=== PATIENT | male | born 1955 | race African-American/Black ===

== ENCOUNTER 2018-02-26 17:04 | Inpatient (IN) | payer OTHER ==
[2018-02-26 17:41] LABS: Absolute Monocytes 0.6 K/uL (0.1-1.3); Absolute Neutrophil 4.1 K/uL (1.8-8.0); Basophils % 1.2 % (0-1.3); Eosinophils % 9.3 % (0-4.4); Hematocrit 43.3 % (39.6-49.0); Lymphocytes % 41.3 % (15.3-44.8); MCH 33.4 pg (27.0-35.0); MCV 98.1 fL (80-100); Monocytes % 5.8 % (3.3-12.3); RBC Red Blood Cell Count 4.41 M/uL (4.33-5.43)
[2018-02-26] MEDS ORDERED: NA CHLORIDE 0.9% 1,000 ML ONE (17:41)
[2018-02-26] MEDS ORDERED: ONDANSETRON 4 MG/2 ML VIAL ONE (17:41)
[2018-02-26] MEDS ORDERED: FENTANYL CITR 100 MCG/2 ML ONE ×2 (17:41→18:54)
[2018-02-26 17:52] LABS: Bicarbonate 20 mEq/L (21-31); Glucose Level 68 mg/dL (65-120); Potassium 3.5 mEq/L (3.6-5.0); Sodium Level 136 mEq/L (135-145)
[2018-02-26 17:58] LABS: ALT/SGPT 30 IU/L (10-60); AST/SGOT 36 IU/L (10-42); Alkaline Phosphatase 49 IU/L (42-121); BUN Blood Urea Nitrogen 14 mg/dL (6-20); Bilirubin Direct 0.1 mg/dL (0-0.2); Bilirubin Total 0.8 mg/dL (0.3-1.2); Protein, Total 7.5 g/dL (6.0-8.3)
[2018-02-26 18:09] LABS: Alcohol Serum/Plasma 174 mg/dl
--- NOTE | 2018-02-26 19:10 | RAD REPORT ---
EXAM DESCRIPTION: RAD - Hip Right 2 View - 02/26/2018 5:55 pm CLINICAL HISTORY: Fall, hip pain COMPARISON: None. FINDINGS: AP and cross-table lateral views were obtained. Transverse fracture is present near the ba se of the neck. Extension into the intertrochanteric region is suspected. Lesser trochanter remains i ntact. No pathologic bone process seen. No AVN or focal femoral head abnormality. Degenerative change s are present along the acetabular rim. IMPRESSION: Right femoral base of the neck fracture with probable extension into the intertrochanter ic portion of the femur. Thin section CT imaging can be performed as warranted for further anatomic detail.
--- NOTE | 2018-02-26 19:10 | RAD REPORT ---
EXAM DESCRIPTION: RAD - Chest Single View - 02/26/2018 5:55 pm CLINICAL HISTORY: Preop chest, fracture COMPARISON: October 2005 TECHNIQUE: AP portable chest image was obtained 1748 hours . FINDINGS: No focal mass, infiltrate or failure finding. No acute lung parenchymal process. Trachea i s midline. Heart and vasculature are normal. No measurable pleural effusion and no pneumothorax. No g ross bony abnormality seen. No acute aortic findings suspected. IMPRESSION: No acute cardiopulmonary process.
--- NOTE | 2018-02-26 19:25 | ER ---
Nurse's Notes [facility] Name: Aj Cosme Jr Age: 63 yrs Sex: Male : 1955 Arrival Date: 02/26/2018 Time: 17:13 Bed 17 Private MD: Diagnosis: Intertrochanteric fracture of femur-right Presentation: 02/26 17:13 Presenting complaint: EMS states: called out for a fall, pt reports tripping at the em foot of the bed, denies dizziness or LOC or hitting head, pt admits drinking 3 beers and half a pint of liquor, reports right hip pain. Transition of care: patient was not received from another setting of care. Onset of symptoms was February 26, 2018. Initial Sepsis Screen: Does the patient meet any 2 criteria? No. Patient's initial sepsis screen is negative. Does the patient have a suspected source of infection? No. Patient's initial sepsis screen is negative. Care prior to arrival: None. 17:13 Method Of Arrival: EMS: [facility] em 17:13 Acuity: JEREMY 3 iw 17:13 Mechanism of Injury: Fall from standing position. Trauma event details: Injury occurred iw in the [facility], Injury occurred: at home. Injury occurred: February 26, 2018. Trauma Activation: Alert Physician: ED Physician; Name: Dr. Quinn; Notified At: 17:15; Arrived At: 17:15 Physician: General Surgeon; Name: N/A; Notified At: 17:15; Arrived At: N/A Physician: Radiology; Name: Renetta; Notified At: 17:15; Arrived At: 17:15 Physician: Respiratory; Name: N/A; Notified At: 17:15; Arrived At: N/A Physician: Lab; Name: N/A; Notified At: 17:15; Arrived At: N/A Historical: - Allergies: 17:33 NKA; iw - PMHx: 17:32 Hypertension; iw - PSHx: 17:32 R elbow; iw - Immunization history:: Adult Immunizations up to date. - Immunization history: Last tetanus immunization: unknown. - Social history:: Smoking status: Patient uses tobacco products, smokes one-half pack cigarettes per day. Screenin:23 Abuse screen: Denies threats or abuse. Nutritional screening: No deficits noted. em Tuberculosis screening: No symptoms or risk factors identified. Fall Risk Fall in past 12 months (25 points). Total Jones Fall Scale indicates Low Risk Score (25-44 pts). Side Rails Up X 2 Placed close to Nursing Station. Primary Survey: 17:15 A: Airway: patent. Breathing/Chest: Respiratory pattern: regular, Respiratory effort: iw spontaneous, unlabored, Breath sounds: clear, bilaterally. Chest inspection: symmetrical rise and fall of the chest. Circulation: Heart tones present. Pulses: palpable right dorsalis pedis artery, left dorsalis pedis artery, left carotid pulse and right carotid pulse. Skin color: pink, Skin temperature: warm. Disability Alert. 17:30 Reassessment Airway Airway Patent Breathing/Chest Respiratory pattern Regular iw Respiratory effort Spontaneous Unlabored Circulation Heart tones Present Disability Alert. 20:00 Reassessment Airway Airway Patent Breathing/Chest Respiratory pattern Regular bs1 Respiratory effort Spontaneous Unlabored Circulation Heart tones Present Disability Alert. Secondary Survey: 17:30 HEENT: Head No injury/deformity. Gastrointestinal: Abdomen is soft, flat. iw Musculoskeletal: Range of motion: limited in right hip Reports pain in right hip. Assessment: 17:21 General: Appears in no apparent distress. uncomfortable, Behavior is calm, cooperative, em Smells of alcohol, Reports tripping and drinking 3 beers and half a pint of liquor. Pain: Complains of pain in right hip. Neuro: Level of Consciousness is awake, alert, obeys commands, Oriented to person, place, time, situation. Cardiovascular: Capillary refill < 3 seconds Patient's skin is warm and dry. Respiratory: Airway is patent Respiratory effort is even, unlabored, Respiratory pattern is regular, symmetrical. GI: Abdomen is flat, Bowel sounds present X 4 quads. : No signs and/or symptoms were reported regarding the genitourinary system. EENT: No signs and/or symptoms were reported regarding the EENT system. Derm: Skin is intact, Skin is pink, warm \T\ dry. Musculoskeletal: Range of motion: limited in right hip. Injury Description: trip injury. 17:30 Reassessment: Patient appears in no apparent distress at this time. I agree with above iw assessment by Yahir Arvizu LVN. 18:20 Reassessment: Patient appears in no apparent distress at this time. Patient and/or em family updated on plan of care and expected duration. Pain level reassessed. Patient is alert, oriented x 3, equal unlabored respirations, skin warm/dry/pink. Patient states symptoms have not improved. 19:05 Reassessment: Report received by PAUL Sinclair, patient ETOH, hip fracture, pulses present bs1 bilateral lower ext, alert to self, neurovascular checks WNL, pending Bed assignment. 20:55 Reassessment: No changes from previously documented assessment. Patient and/or family bs1 updated on plan of care and expected duration. Pain level reassessed. Patient is alert, oriented x 3, equal unlabored respirations, skin warm/dry/pink. Water given to patient per Dr Iqbal. Vital Signs: 17:19 BP 103 / 75; Pulse 105; Resp 18; Temp 98.6(TE); Pulse Ox 96% on R/A; Weight 85.73 kg; em Height 6 ft. 2 in. (187.96 cm); Pain 8/10; 17:31 BP 115 / 74; Pulse 98; Resp 16 S; Temp 98.2; Pulse Ox 98% on R/A; Pain 8/10; iw 18:30 BP 109 / 61; Pulse 98; Resp 18; Pulse Ox 94% ; Pain 9/10; em 19:30 BP 112 / 57; Pulse 93; Resp 17; Pulse Ox 100% on R/A; bs1 20:30 BP 107 / 62; Pulse 98; Resp 17; Pulse Ox 100% on R/A; bs1 20:30 BP 107 / 62; Pulse 98; Resp 17; Pulse Ox 94% on R/A; bs1 21:30 BP 100 / 56; Pulse 87; Resp 16 S; Temp 98.6(O); Pulse Ox 97% on R/A; Pain 0/10; bs1 17:19 Body Mass Index 24.27 (85.73 kg, 187.96 cm) em [place] Coma Score: 20:00 Eye Response: spontaneous(4). Verbal Response: oriented(5). Motor Response: obeys bs1 commands(6). Total: 15. Trauma Score (Adult): 20:00 Eye Response: spontaneous(1); Verbal Response: oriented(1); Motor Response: obeys bs1 commands(2); Systolic BP: > 89 mm Hg(4); Respiratory Rate: 10 to 29 per min(4); Nicole Score: 15; Trauma Score: 12 ED Course: 17:13 Patient arrived in ED. em 17:17 Reinaldo Fernández NP is PHCP. pm1 17:17 Gene Quinn MD is Attending Physician. pm1 17:24 Verónica Vazquez, RN is Primary Nurse. iw 17:24 Arm band placed on. em 17:24 No provider procedures requiring assistance completed. Inserted saline lock: 20 gauge em in right antecubital area, using aseptic technique. 17:25 Patient has correct armband on for positive identification. Placed in gown. Bed in low em position. Call light in reach. Side rails up X2. 17:29 Triage completed. iw 17:33 Patient maintains SpO2 saturation greater than 95% on room air. Thermoregulation: warm iw blanket given to patient. 17:54 X-ray completed. Portable x-ray completed in exam room. Patient tolerated procedure ag1 well. 17:55 Hip Right 2 View XRAY In Process Unspecified. EDMS 17:55 XRAY Chest (1 view) In Process Unspecified. EDMS 17:58 EKG done, by voice intercept technician. reviewed by Reinaldo Fernández NP. at1 19:22 Matt Carter MD is Hospitalizing Provider. pm1 19:37 Primary Nurse role handed off by Verónica Vazquez, CHARLES rg2 19:49 Hip Right Wo Con In Process Unspecified. EDMS 20:00 CT completed. Patient tolerated procedure well. Patient moved to CT via stretcher. ct Patient moved back from CT. 20:01 Renetta Beth, CHARLES is Primary Nurse. bs1 22:03 Patient admitted, IV remains in place. intact. bs1 Administered Medications: 17:57 Drug: fentaNYL (PF) 25 mcg Route: IVP; Site: right antecubital; iw 18:16 Follow up: Response: No adverse reaction em 17:57 Drug: Zofran 4 mg Route: IVP; Site: right antecubital; iw 18:15 Follow up: Response: No adverse reaction; Nausea is decreased em 17:58 Drug: NS 0.9% 1000 ml Route: IV; Rate: 100 ml/hr; Site: right antecubital; em 22:04 Follow up: IV Status: Infusion continued upon admission bs1 18:58 Drug: fentaNYL (PF) 50 mcg Route: IVP; Site: right antecubital; aj1 22:04 Follow up: Response: No adverse reaction bs1 Intake: 20:00 PO: 850ml; IV: 500ml; Total: 1350ml. bs1 Output: 20:00 Urine: 450ml (Voided); Total: 450ml. bs1 Outcome: 19:25 Decision to Hospitalize by Provider. pm1 22:02 Admitted to Tele accompanied by tech, via stretcher, room 404, with chart, Report bs1 called to CHARLES Nelson 22:02 Condition: stable 22:02 Patient's length of stay was not longer than 2 hours. Pending room assignmentPatient's length of stay extended due to 22:06 Patient left the ED. bs1 Signatures: Dispatcher [employer] EDJulio Knight rg2 Alexia Mclaughlin RN RN aj1 Yahir Arvizu, DRIVER SALES DRIVER SALES em Verónica Vazquez RN RN iw Lizbeth butcher, planning intern EKG Tat1 Jessica Alexander ag1 Reinaldo Fernández, LUMP MACHINE OPERATOR LUMP MACHINE OPERATOR pm1 Luis Barnard [facility] Renetta Beth RN RN bs1 Corrections: (The following items were deleted from the chart) 17:27 17:13 Presenting complaint: EMS states: called out for a fall, pt reports tripping at em the foot of the bed, denies dizziness or LOC or hitting head, pt admits drinking 3 beers and half a pint of liquor, reports right hip pain em 19:37 19:05 BP 109 / 61; Pulse 98bpm; Resp 18bpm; Pulse Ox 94%; mh5 em
--- NOTE | 2018-02-26 19:25 | EDPHYS ---
Physician Documentation [facility] Name: Aj Cosme Jr Age: 63 yrs Sex: Male : 1955 Arrival Date: 02/26/2018 Time: 17:13 Bed 17 Private MD: ED Physician Gene Quinn HPI: 02/26 20:46 This 63 yrs old Black Male presents to ER via EMS with complaints of Fall Injury - pm1 right hip pain. 20:46 Details of fall: The patient fell from an upright position, while standing. Onset: The pm1 symptoms/episode began/occurred just prior to arrival. Associated injuries: The patient sustained right hip. Severity of symptoms: in the emergency department the symptoms are unchanged. The patient has not experienced similar symptoms in the past. The patient has not recently seen a physician, out of town. Patient walking around his bed and tripped on the end between his bed and chest on the floor. Patient landed on his right hip. Patient without any neck pain, headache or head injury. Historical: - Allergies: 17:33 NKA; iw - PMHx: 17:32 Hypertension; iw - PSHx: 17:32 R elbow; iw - Immunization history:: Adult Immunizations up to date. - Immunization history: Last tetanus immunization: unknown. - Social history:: Smoking status: Patient uses tobacco products, smokes one-half pack cigarettes per day. ROS: 20:46 Constitutional: Negative for fever, chills, and weight loss, Eyes: Negative for injury, pm1 pain, redness, and discharge, ENT: Negative for injury, pain, and discharge, Neck: Negative for injury, pain, and swelling, Cardiovascular: Negative for chest pain, palpitations, and edema, Respiratory: Negative for shortness of breath, cough, wheezing, and pleuritic chest pain, Abdomen/GI: Negative for abdominal pain, nausea, vomiting, diarrhea, and constipation, Back: Negative for injury and pain, : Negative for injury, bleeding, discharge, and swelling. 20:46 Skin: Negative for injury, rash, and discoloration, Neuro: Negative for headache, weakness, numbness, tingling, and seizure. 20:46 MS/extremity: Positive for pain, of the right hip. Exam: 20:46 Constitutional: This is a well developed, well nourished patient who is awake, alert, pm1 and in no acute distress. Head/Face: Normocephalic, atraumatic. Eyes: Pupils equal round and reactive to light, extra-ocular motions intact. Lids and lashes normal. Conjunctiva and sclera are non-icteric and not injected. Cornea within normal limits. Periorbital areas with no swelling, redness, or edema. ENT: Nares patent. No nasal discharge, no septal abnormalities noted. Tympanic membranes are normal and external auditory canals are clear. Oropharynx with no redness, swelling, or masses, exudates, or evidence of obstruction, uvula midline. Mucous membranes moist. Neck: Trachea midline, no thyromegaly or masses palpated, and no cervical lymphadenopathy. Supple, full range of motion without nuchal rigidity, or vertebral point tenderness. No Meningismus. Chest/axilla: Normal chest wall appearance and motion. Nontender with no deformity. No lesions are appreciated. Cardiovascular: Regular rate and rhythm with a normal S1 and S2. No gallops, murmurs, or rubs. Normal PMI, no JVD. No pulse deficits. Respiratory: Lungs have equal breath sounds bilaterally, clear to auscultation and percussion. No rales, rhonchi or wheezes noted. No increased work of breathing, no retractions or nasal flaring. Abdomen/GI: Soft, non-tender, with normal bowel sounds. No distension or tympany. No guarding or rebound. No evidence of tenderness throughout. Back: No spinal tenderness. No costovertebral tenderness. Full range of motion. Skin: Warm, dry with normal turgor. Normal color with no rashes, no lesions, and no evidence of cellulitis. 20:46 Constitutional: The patient appears smells of alcohol. 20:46 Musculoskeletal/extremity: Extremities: grossly normal except: Right leg shortened and rotated. Neurovascular status intact to right leg. Pulses 2+ on right foot. Vital Signs: 17:19 BP 103 / 75; Pulse 105; Resp 18; Temp 98.6(TE); Pulse Ox 96% on R/A; Weight 85.73 kg; em Height 6 ft. 2 in. (187.96 cm); Pain 8/10; 17:31 BP 115 / 74; Pulse 98; Resp 16 S; Temp 98.2; Pulse Ox 98% on R/A; Pain 8/10; iw 18:30 BP 109 / 61; Pulse 98; Resp 18; Pulse Ox 94% ; Pain 9/10; em 19:30 BP 112 / 57; Pulse 93; Resp 17; Pulse Ox 100% on R/A; bs1 20:30 BP 107 / 62; Pulse 98; Resp 17; Pulse Ox 100% on R/A; bs1 20:30 BP 107 / 62; Pulse 98; Resp 17; Pulse Ox 94% on R/A; bs1 21:30 BP 100 / 56; Pulse 87; Resp 16 S; Temp 98.6(O); Pulse Ox 97% on R/A; Pain 0/10; bs1 17:19 Body Mass Index 24.27 (85.73 kg, 187.96 cm) em [place] Coma Score: 20:00 Eye Response: spontaneous(4). Verbal Response: oriented(5). Motor Response: obeys bs1 commands(6). Total: 15. Trauma Score (Adult): 20:00 Eye Response: spontaneous(1); Verbal Response: oriented(1); Motor Response: obeys bs1 commands(2); Systolic BP: > 89 mm Hg(4); Respiratory Rate: 10 to 29 per min(4); [place] Score: 15; Trauma Score: 12 MDM: 17:21 Patient medically screened. pm1 19:20 Physician consultation: Angel Collins MD was called at 19:05, was contacted at 19:05, pm1 regarding consult, patient's condition, and will see patient tomorrow, NPO at midnight, admit to hospitalist, Right femur X-ray, discuss with hospitalist for alcohol withdrawal precautions. 19:31 Physician consultation: Angel Collins MD was contacted at 19:31, Requests right hip CT. pm1 19:35 Physician consultation: Reinaldo Fernández NP was called at 19:35, was contacted at 19:35, pm1 regarding admission, patient's condition. 21:00 Data reviewed: vital signs. pm1 02/26 17:23 Order name: Basic Metabolic Panel; Complete Time: 18:41 pm1 02/26 17:23 Order name: CBC with Diff; Complete Time: 20:14 pm1 02/26 17:23 Order name: LFT's; Complete Time: 18:41 pm1 02/26 17:23 Order name: PT-INR; Complete Time: 18:41 pm1 02/26 17:23 Order name: Ptt, Activated; Complete Time: 18:41 pm1 02/26 17:23 Order name: ETOH Level; Complete Time: 18:41 pm1 02/26 17:21 Order name: Hip Right 2 View XRAY; Complete Time: 19:12 pm1 02/26 17:23 Order name: XRAY Chest (1 view); Complete Time: 19:12 pm1 02/26 17:54 Order name: Manual Differential; Complete Time: 20:14 EDMS 02/26 19:13 Order name: Femur Right XRAY pm1 02/26 19:31 Order name: Hip Right Wo Con; Complete Time: 20:14 EDMS 02/26 19:34 Order name: Pelvis; Complete Time: 20:14 EDMS 02/26 20:17 Order name: RAD; Complete Time: 21:07 EDMS 02/26 17:23 Order name: EKG; Complete Time: 17:24 pm1 02/26 17:23 Order name: Cardiac monitoring; Complete Time: 17:34 pm1 02/26 17:23 Order name: EKG - Nurse/Tech; Complete Time: 17:34 pm1 02/26 17:23 Order name: IV Saline Lock; Complete Time: 17:35 pm1 02/26 17:23 Order name: Labs collected and sent; Complete Time: 17:35 pm1 02/26 17:23 Order name: Urine Dipstick-Ancillary (obtain specimen); Complete Time: 17:35 pm1 02/26 17:23 Order name: NPO; Complete Time: 17:28 pm1 Administered Medications: 17:57 Drug: fentaNYL (PF) 25 mcg Route: IVP; Site: right antecubital; iw 18:16 Follow up: Response: No adverse reaction em 17:57 Drug: Zofran 4 mg Route: IVP; Site: right antecubital; iw 18:15 Follow up: Response: No adverse reaction; Nausea is decreased em 17:58 Drug: NS 0.9% 1000 ml Route: IV; Rate: 100 ml/hr; Site: right antecubital; em 22:04 Follow up: IV Status: Infusion continued upon admission bs1 18:58 Drug: fentaNYL (PF) 50 mcg Route: IVP; Site: right antecubital; aj1 22:04 Follow up: Response: No adverse reaction bs1 Disposition: 02/26/18 19:25 Hospitalization ordered by Matt Carter for Inpatient Admission. Preliminary diagnosis is Intertrochanteric fracture of femur - right. - Bed requested for Telemetry/MedSurg (Inpatient). - Status is Inpatient Admission. bs1 - Condition is Stable. - Problem is new. - Symptoms have improved. UTI on Admission? No Addendum: 03/01/2018 06:23 Co-signature as Attending Physician, Gene Quinn MD Available for consultation at p s1 all times. . Signatures: Dispatcher [employer] EDMS Alexia Mclaughlin RN RN aj1 Mattie Rodríguez RN Yahir Lowery, DIGITAL PROGRAM MANAGER DIGITAL PROGRAM MANAGER Verónica Batista RN RN iw Marinas, Patrick, HARP MAKER HARP MAKER pm1 Gene Quinn MD MD ps1 Salazar, Brittany, RN RN bs1
[2018-02-26 19:54] LABS: Blood Morphology Comment NOT SEEN (NOT SEEN); Platelet Estimate ADEQ
--- NOTE | 2018-02-26 20:07 | RAD REPORT ---
EXAM DESCRIPTION: CT - Hip Right Wo Con - 02/26/2018 7:49 pm CLINICAL HISTORY: Fall, right femur fracture COMPARISON: Right hip same date TECHNIQUE: Axial 2 millimeter thick images of the pelvis were obtained with sagittal and coronal ref ormatted images generated and reviewed. FINDINGS: Partially imaged lower lumbar spine shows degenerative change L5-S1. Partially imaged adva nced L4-5 degenerative change seen. This is not adequately visualized for further characterization. N o sacrum or right sacral ala fracture identified. SI joint degenerative changes are present. No acute fracture of the right hemipelvis. Proximal femur fracture is identified. There is an oblique fracture that extends from the subcapital region of the femoral head lateral aspect inferiorly to the superior margin of the greater trochanter . The anterior superior aspect of the greater trochanter is involved. There is no free greater trocha nter or lesser trochanter fracture fragment. There is impaction along the posterior margin of the fra cture plane along with outward rotation of the main body of the femur. Femoral head maintains normal positioning to the acetabulum. Pathologic etiology is not suspected. No significant periarticular mass or hematoma. IMPRESSION: Proximal right femur fracture is present extending from the lateral subcapital femoral h ead inferiorly and medially to the superior margin of the lesser trochanter. Posterior margin impaction and femur rotation noted. Pathologic etiology not suspected. No fracture of the sacral ala on the right or right hemipelvis. Advanced L4-5 degenerative disc change only partially imaged on this study.
--- NOTE | 2018-02-26 20:10 | RAD REPORT ---
EXAM DESCRIPTION: RAD - Pelvis - 02/26/2018 8:02 pm CLINICAL HISTORY: Fall, pelvic and hip pain COMPARISON: None. TECHNIQUE: AP imaging of the pelvis was obtained. FINDINGS: Proximal right femur fracture is detailed on separate imaging. No fracture of the bony pel vis seen. Patient has advanced degenerative change at L3-4 and L4-5 disc spaces. These are only parti ally imaged on this study. L5 is partially sacralized on the right. An acute sacral ala abnormality i s not suspected. IMPRESSION: No fracture of the pelvis. Advanced lower lumbar disc and endplate degenerative change. Proximal right femur fracture separately detailed.
--- NOTE | 2018-02-26 20:16 | RAD REPORT ---
EXAM DESCRIPTION: RAD - Femur Right - 02/26/2018 8:09 pm CLINICAL HISTORY: Fall, hip pain COMPARISON: Pelvis and hip imaging same date FINDINGS: Femoral neck and intertrochanteric fracture has been detailed on separate reports. Remaind er the femur shows no fracture. No acute bone process seen. No acute finding at the knee joint. No henny int effusion seen. No significant soft tissue finding. No air or foreign body in the soft tissues. IMPRESSION: Right femoral neck fracture is present and detailed on separate reports. Remainder the femur shows no acute or suspicious finding.
--- NOTE | 2018-02-26 20:42 | P.HP ---
Certification for Inpatient Patient admitted to: Inpatient With expected LOS: >2 Midnights Practitioner: I am a practitioner with admitting privileges, knowledge of patient current condition, hospital course, and medical plan of care. Services: Services provided to patient in accordance with Admission requirements found in Title 42 Section 412.3 of the Code of Federal Regulations Patient History Date of Service: 02/26/18 Reason for admission: hip fracture History of Present Illness: Mr Cosme is a 63 years old male with history of HTN, he stated that he drinks alcohol but not every day. Today he drank 3 beers. Today the patient tripped at the foot of the bed, and fell to the floor. He hit his right hip, and immediately after fall, he start feeling significant pain on his right hip, unable to bear weight on his right leg. At arrival he has alcohol smell, he is hemodynamically stable. WBC WNL, no fever or chills. CT hip report proximal right femur fracture extending from the lateral subcapital femoral head inferiorly and medially to the superior margin of the lesser trochanter. No head trauma. Allergies No Known Allergies Allergy (Unverified 12/08/17 09:46) - Past Medical/Surgical History -: HTN -: right elbow - Family History Family History: Reviewed- Non-Contributory - Social History Smoking Status: Current every day smoker Counseled patient to stop smoking for: less than 10 minutes Smoking therapy provided: Yes Patient receptive to therapy: Yes Alcohol use: Yes CD- Drugs: No Place of Residence: Home Review of Systems 10-point ROS is otherwise unremarkable Physical Examination - Physical Exam General: Alert, In no apparent distress HEENT: Atraumatic, PERRLA, Mucous membr. moist/pink, EOMI, Sclerae nonicteric Neck: Supple, 2+ carotid pulse no bruit, No LAD, Without JVD or thyroid abnormality Respiratory: Clear to auscultation bilaterally, Normal air movement Cardiovascular: Regular rate/rhythm, Normal S1 S2 Gastrointestinal: Normal bowel sounds, No tenderness Musculoskeletal: Tenderness (right hip) Integumentary: No rashes Neurological: Normal speech, Normal tone, Normal affect Lymphatics: No axilla or inguinal lymphadenopathy - Studies Laboratory Data (last 24 hrs) 02/26/18 17:15: PT 11.8, INR 1.00, APTT 22.8 L 02/26/18 17:15: WBC 9.8, Hgb 14.7, Hct 43.3, Plt Count 289 02/26/18 17:15: Sodium 136, Potassium 3.5 L, BUN 14, Creatinine 0.95, Glucose 68 , Total Bilirubin 0.8, AST 36, ALT 30, Alkaline Phosphatase 49 Assessment and Plan - Problems (Diagnosis) (1) Hip fracture Current Visit: Yes Status: Acute Qualifiers: Encounter type: initial encounter Fracture type: closed Laterality: right Qualified Code(s): S72.001A - Fracture of unspecified part of neck of right femur, initial encounter for closed fracture (2) Tobacco abuse Current Visit: Yes Status: Acute (3) HTN (hypertension) Current Visit: Yes Status: Acute Qualifiers: Hypertension type: essential hypertension Qualified Code(s): I10 - Essential (primary) hypertension (4) Alcohol intoxication Current Visit: Yes Status: Acute Qualifiers: Complication of substance-induced condition: uncomplicated Qualified Code(s ): F10.920 - Alcohol use, unspecified with intoxication, uncomplicated - Plan Mr Cosme will be admitted to the hospital due to hip fracture. Dr Collins has been consulted, plan for surgical fixation in the morning. Will watch for alcohol withdrawal symptoms. - Advance Directives Does patient have a Living Will: No Does patient have a Durable POA for Healthcare: No - Code Status/Comfort Care Code Status Assessed: Yes Code Status: Full Code
--- NOTE | 2018-02-26 22:09 | EKG ---
Test Date: 2018-02-26 Test Time: 17:51:07 Prison Teacher: JG MEASUREMENT RESULTS: Intervals: Rate: 99 AR: 174 QRSD: 84 QT: 356 QTc: 456 Goldvein: P: 79 AR: 174 QRS: 78 T: 41 INTERPRETIVE STATEMENTS: Sinus rhythm with sinus arrhythmia with occasional premature ventricular complexes Otherwise normal ECG Compared to ECG 11/07/2005 19:57:00 Ventricular premature complex(es) now present T-wave abnormality no longer present Electronically Signed On 02-26-18 22:08:33 CDT by Reid Almeida
[2018-02-26] MEDS: NA CHLORIDE 0.9% 1,000 ML IV SCH (23:05)
[2018-02-26] MEDS ORDERED: ONDANSETRON 4 MG/2 ML VIAL IV PRN (23:05)
[2018-02-27] MEDS: FENTANYL CITR 100 MCG/2 ML IV PRN ×4 (00:28→20:04)
[2018-02-27 04:04] LABS: Absolute Lymphocytes (CBC) 1.3 K/uL (0.7-4.9); Absolute Monocytes 0.7 K/uL (0.1-1.3); Absolute Neutrophil 6.7 K/uL (1.8-8.0); Basophils % 0.6 % (0-1.3); Eosinophils % 0.2 % (0-4.4); Hematocrit 39.4 % (39.6-49.0); Lymphocytes % 15.2 % (15.3-44.8); MCH 33.5 pg (27.0-35.0); MCV 98.1 fL (80-100); MPV 7.9 fL (7.6-11.3); Monocytes % 8.5 % (3.3-12.3); RBC Red Blood Cell Count 4.02 M/uL (4.33-5.43)
[2018-02-27 04:35] LABS: Potassium 4.1 mEq/L (3.6-5.0)
[2018-02-27] MEDS: NA CHLORIDE 0.9% 1,000 ML IV SCH ×2 (06:09→20:05)
[2018-02-27] MEDS: NICOTINE 21 MG/PAT TD SCH (10:20)
[2018-02-27] MEDS ORDERED: CEFAZOLIN/SWI 1gm 2 GM/20 ML SYR ONE (11:57)
[2018-02-27] MEDS ORDERED: LIDOCAINE 2% MPF 5 ML VIAL ONE ×2 (12:02→12:56)
[2018-02-27] MEDS ORDERED: PROPOFOL 200 MG/20 ML VIAL IV ONE ×2 (12:02→12:56)
[2018-02-27] MEDS ORDERED: FENTANYL CITR 250 MCG/5 ML ONE ×2 (12:02→12:57)
[2018-02-27] MEDS ORDERED: ROCURONIUM 50 MG/5 ML VIAL IV ONE ×2 (12:02→12:57)
[2018-02-27] MEDS ORDERED: MIDAZOLAM HCL 2 MG/2 ML INJ ONE ×2 (12:02→12:56)
[2018-02-27] MEDS ORDERED: TRANEXAMIC ACID 1,000 MG in NA CHLORIDE 0.9% 50 ML IV ONE ×4 (13:00)
--- NOTE | 2018-02-27 13:13 | CON ---
Date of Consultation: 02/27/2018 Reason For Consultation: Right hip pain. History Of Present Illness: Mr. Cosme is a 63-year-old male with history of hypertension, who pres ented to the ER yesterday after sustaining a fall onto his right side with subsequent right hip pain. The patient reports pain after the fall with inability to bear weight on his right lower extremity. X-rays in the emergency room demonstrated a right femoral neck fracture, which was displaced, and h e was admitted to the floor and to the hospitalist service. Review of Systems: As above, otherwise negative. Past Medical History: Includes hypertension. Past Surgical History: Right elbow surgery. Family History: Reviewed and noncontributory. Social History: Reports tobacco as well as alcohol use. Denies drug use. Physical Examination: General: No apparent distress. HEENT: Normocephalic, atraumatic. Neck: Supple. Cardiovascular: Brisk cap refill to all digits. Chest: Nonlabored breathing. Abdomen: Nondistended. Psychiatric: Response to exam. Musculoskeletal: Right lower extremity has pain with range of motion of the right hip, tenderness to palpation of the right hip. No tenderness to palpation over the knee, tibia or foot. Sensation juan luis ssly intact to dorsal and plantar surface of his foot. Positive firing of EHL, FHL, gastrocsoleus co mplex, tibialis anterior. Left lower extremity, no functional range of motion without pain. No farshad s deformities. No obvious dislocations. Bilateral upper extremities functional range of motion with out pain. No gross deformities. No obvious dislocations. Assessment And Plan: Mr. Cosme is a 63-year-old male with a right displaced femoral neck fracture. I discussed with the patient at length risks and benefits associated with operative and nonoperativ e treatment. Given the displaced nature of the fracture, recommended right hip hemiarthroplasty. Ri sks associated with the procedure including bleeding, infection, dislocation, leg length discrepancy were discussed with the patient at length and he expressed understanding. We will proceed with right hip hemiarthroplasty later today. Dr. Muhammad will continue to monitor the patient and manage the pat ient medically. CV/MODL Voice ID: [id number] Report ID: [id number]
[2018-02-27] MEDS ORDERED: NA CHLORIDE 0.9% 1,000 ML ONE (13:47)
[2018-02-27] MEDS: PREGABALIN 75 MG CAP PO SCH ×2 (14:00→20:04)
--- NOTE | 2018-02-27 14:26 | P.PN ---
Subjective Date of Service: 02/27/18 Chief Complaint: hip fracture Pt seen and examined at bedside with RN. Currently Awaiting ORIF with Juliane. Complains of having hip pain. No other comlains to offer. Review of Systems General: As per HPI Physical Examination - Vital Signs Temperature: 97.1 F Blood Pressure: 134/75 Pulse: 84 Respirations: 18 Pulse Ox (%): 93 - Physical Exam General: Alert, In no apparent distress HEENT: Atraumatic Neck: Supple, JVD not distended Respiratory: Clear to auscultation bilaterally, Normal air movement Cardiovascular: Regular rate/rhythm, Normal S1 S2 Gastrointestinal: Normal bowel sounds, No tenderness Musculoskeletal: No tenderness Integumentary: No rashes Neurological: Normal speech, Normal tone, Normal affect Lymphatics: No axilla or inguinal lymphadenopathy - Studies Laboratory Data (last 24 hrs) 02/26/18 17:15: PT 11.8, INR 1.00, APTT 22.8 L 02/26/18 17:15: WBC 9.8, Hgb 14.7, Hct 43.3, Plt Count 289 02/26/18 17:15: Sodium 136, Potassium 3.5 L, BUN 14, Creatinine 0.95, Glucose 68 , Total Bilirubin 0.8, AST 36, ALT 30, Alkaline Phosphatase 49 Medications List Reviewed: Yes Assessment & Plan - Problems (Diagnosis) (1) Hip fracture Onset Date: 02/27/18 Current Visit: Yes Status: Acute Plan: Right Hip fracture after sustaining a fall at home while being intoxicated -Ortho consulted. ORIF scheduled for today -NPO and IV fluids for now -PT.OT post procedure -rehab Placement. Qualifiers: Encounter type: initial encounter Fracture type: closed Laterality: right Qualified Code(s): S72.001A - Fracture of unspecified part of neck of right femur, initial encounter for closed fracture (2) Alcohol abuse Current Visit: Yes Status: Chronic (3) HTN (hypertension) Onset Date: 02/27/18 Current Visit: Yes Status: Chronic Qualifiers: Hypertension type: essential hypertension Qualified Code(s): I10 - Essential (primary) hypertension (4) Tobacco abuse Onset Date: 02/27/18 Current Visit: Yes Status: Chronic Discharge Plan: Home Plan to discharge in: 24 Hours - Code Status/Comfort Care Code Status Assessed: Yes Critical Care: No
[2018-02-27] MEDS ORDERED: KETOROLAC 30 MG/ML INJ ONE (14:51)
[2018-02-27] MEDS ORDERED: MEPERIDINE HCL 25 MG/0.5 ML ONE ×2 (15:32→16:27)
--- NOTE | 2018-02-27 15:36 | P.BOP ---
Preoperative diagnosis: right femoral neck fracture Postoperative diagnosis: same Primary procedure: right hip hemiarthroplasty Secondary procedure: none Shoe Repairer Apprentice: NONE,NONE Estimated blood loss: 150 cc Specimen: right femoral head Findings: see dictation Anesthesia: General Complications: None Implants: Biomet Size 12 press fit stem; 49 bipolar shell; 28mm -6 head Fluids & blood products: per anesthesia record Transferred to: Recovery Room Condition: Good
[2018-02-27] MEDS: MEPERIDINE HCL 50 MG/ML AMP ONE ×2 (15:45→16:04)
[2018-02-27] MEDS ORDERED: Ringers Lactate 1,000 ML IV ONE (16:08)
[2018-02-27 16:17] LABS: Hematocrit 41.8 % (39.6-49.0)
--- NOTE | 2018-02-27 16:43 | RAD REPORT ---
EXAM DESCRIPTION: RAD - Pelvis - 02/27/2018 4:32 pm CLINICAL HISTORY: Right hip surgery FINDINGS: A right hip arthroplasty has been performed. The prosthesis is in good position. No acute fracture or dislocation is seen
--- NOTE | 2018-02-27 16:43 | RAD REPORT ---
EXAM DESCRIPTION: RAD - Hip Right 2 View - 02/27/2018 4:31 pm CLINICAL HISTORY: Right hip surgery FINDINGS: A right hip arthroplasty has been performed. The prosthesis is in good position. No acute fracture or dislocation is seen
--- NOTE | 2018-02-27 17:26 | P.OP ---
Preoperative diagnosis: right femoral neck fracture Postoperative diagnosis: same Primary procedure: right hip hemiarthroplasty Secondary procedure: none Anesthesia: general endotracheal Estimated blood loss: 150 cc Specimen: right femoral head Findings: see dictation Operative Technique: Indication For Procedure: Aj is a 63-year-old male, presented to the ER last night after sustaining a fall onto his right side with subsequent right hip pain and inability to bear weight. X-rays in the emergency room demonstrated a displaced right femoral neck fracture. I discussed with the patient risks and benefits associated with operative and nonoperative treatment. He expressed understanding and elected to proceed with operative treatment. Description Of Procedure: After informed consent was obtained, the patient was identified in the preoperative holding area. The right lower extremity was marked. The patient was then taken back to the operating room, transferred to the operating table in supine fashion, and placed under general LMA anesthesia. He was then placed in the left lateral decubitus position, an axillary roll was placed, and his extremities were well padded. The right lower extremity was prepped and draped in usual sterile fashion. A time-out was initiated. The correct patient and procedure were confirmed and identified. The patient did receive his preoperative prophylactic antibiotics. An approximately 15 cm curvilinear incision was made and centered over the greater trochanter with posterior approach to the left hip. Dissection was taken down to the tensor fascia lzu using Bovie electrocautery. The tensor fascia luz was then released both proximally and distally in line with the incision. Charnley retractor was then placed. Blunt dissection was then taken down to the shorter external rotators, which were released of proximal femur and tagged with #5 Ethibond. A T-shaped capsulotomy was then performed. The hematoma was then evacuated. A corkscrew was then used to remove the femoral head. It was measured with a size 49-mm shell. A 49 mm trial head then placed and there was good fit within the acetabulum. The capsule was tagged using a #5 Ethibond. Next, attention was taken to preparation of the proximal femur. A cookie cutter was first placed after the soft tissue was removed over the lateral aspect of the femoral neck. A canal finder was then placed followed by a lateralizer on power. The canal was then reamed starting with an 8-mm reamer to a size 12 mm with good fit, followed by broaching of the canal from a size 8- mm broach to size 12-mm broach. There was good fit of the broach within the canal. Once in the proper position, a calcar reamer was then placed over the neck of the broach and the calcar was planed. Next, a size 49-mm shell and a 28 x -6 mm head was then placed and the hip was reduced through a good overall fit with the hip. The trial components were removed. The hip was then irrigated thoroughly with normal saline. The final stem was then placed, 12-mm stem, press-fit stem and again, the trial was placed and there was good fit with a -6 mm head and a 49 mm bipolar shell. Final components with the head and shell components were then placed. The hip was reduced. It was then brought in full range of motion without any instability noted and good overall leg length. The wound was then irrigated thoroughly with normal saline. The capsule was then approximated using a #5 Ethibond, followed by repair of the external rotators with greater trochanter using a drill and suture passer. The external rotators were tied over a bone bridge. The tensor fascia luz was then approximated using 0 Vicryl. The deep fascia was approximated using 0 Vicryl. Subcutaneous tissue was approximated using a 2-0 Vicryl. Skin was approximated using a staple. Sterile dressing was applied. Abduction pillow was placed. The patient was awakened and transferred to PACU in stable condition. Postoperative Plan: He will be weightbearing as tolerated. Physical Therapy will be consulted to aid with mobilization. Dr. Muhammad will continue to manage the patient medically. Complications: None Implants: 49 mm bipolar shell, 12 Biomet press fit stem, 28mm -6 head Fluids & blood products: per anesthesia Transferred to: Recovery Room Condition: Good
[2018-02-27] MEDS: CEFAZOLIN/SWI 2gm 2 GM/20 ML SYR IVP SCH (18:24)
[2018-02-27] MEDS: ATORVASTATIN 10 MG TAB PO SCH (20:04)
[2018-02-27] MEDS: HYDROCODONE/APAP 7.5/325 MG TAB PO PRN (22:00)
[2018-02-28] MEDS: FENTANYL CITR 100 MCG/2 ML IV PRN ×2 (00:35→04:39)
[2018-02-28] MEDS: CEFAZOLIN/SWI 2gm 2 GM/20 ML SYR IVP SCH ×2 (00:39→07:56)
[2018-02-28] MEDS: HYDROCODONE/APAP 7.5/325 MG TAB PO PRN ×2 (04:45→10:01)
[2018-02-28] MEDS: NA CHLORIDE 0.9% 1,000 ML IV SCH ×3 (05:05→22:01)
[2018-02-28 06:35] LABS: Absolute Lymphocytes (CBC) 1.1 K/uL (0.7-4.9); Absolute Monocytes 0.9 K/uL (0.1-1.3); Absolute Neutrophil 6.7 K/uL (1.8-8.0); Basophils % 0.8 % (0-1.3); Eosinophils % 0.6 % (0-4.4); Hematocrit 37.4 % (39.6-49.0); Lymphocytes % 12.1 % (15.3-44.8); MCH 32.6 pg (27.0-35.0); MCV 99.7 fL (80-100); MPV 8.6 fL (7.6-11.3); RBC Red Blood Cell Count 3.75 M/uL (4.33-5.43)
[2018-02-28 06:39] LABS: BUN Blood Urea Nitrogen 7 mg/dL (6-20); Bicarbonate 26 mEq/L (21-31); Glucose Level 163 mg/dL (65-120); Potassium 3.8 mEq/L (3.6-5.0); Sodium Level 135 mEq/L (135-145)
[2018-02-28] MEDS: PREGABALIN 75 MG CAP PO SCH ×4 (10:00→22:01)
[2018-02-28] MEDS: hydroCHLOROthiazide 12.5 MG CAP PO SCH (10:00)
[2018-02-28] MEDS: ENOXAPARIN 40 MG/0.4 ML SQ SCH (10:00)
[2018-02-28] MEDS: AMLODIPINE 10 MG TAB PO SCH (10:01)
[2018-02-28] MEDS: NICOTINE 21 MG/PAT TD SCH (10:03)
--- NOTE | 2018-02-28 10:05 | P.PN ---
Subjective Date of Service: 02/28/18 Chief Complaint: hip fracture Pt seen and examined at bedside with RN. S/o ORIF with Dr Collins. Doing well overall. No c/o overnight. Review of Systems 10-point ROS is otherwise unremarkable Physical Examination - Vital Signs Temperature: 99.3 F Blood Pressure: 121/77 Pulse: 97 Respirations: 16 Pulse Ox (%): 96 - Physical Exam General: Alert, In no apparent distress HEENT: Atraumatic, PERRLA, EOMI Neck: Supple, JVD not distended Respiratory: Clear to auscultation bilaterally, Normal air movement Cardiovascular: Regular rate/rhythm, Normal S1 S2 Gastrointestinal: Normal bowel sounds, No tenderness Musculoskeletal: No tenderness Integumentary: No rashes Neurological: Normal speech, Normal tone, Normal affect Lymphatics: No axilla or inguinal lymphadenopathy - Studies Medications List Reviewed: Yes Assessment & Plan - Problems (Diagnosis) (1) Hip fracture Onset Date: 02/27/18 Current Visit: Yes Status: Acute Plan: Right Hip fracture after sustaining a fall at home while being intoxicated -Ortho consulted. reccs appreciated -S/p ORIF pod # 1 -PT.OT post procedure -rehab Placement. Awaiting approval. Qualifiers: Encounter type: initial encounter Fracture type: closed Laterality: right Qualified Code(s): S72.001A - Fracture of unspecified part of neck of right femur, initial encounter for closed fracture (2) Alcohol abuse Current Visit: Yes Status: Chronic (3) HTN (hypertension) Onset Date: 02/27/18 Current Visit: Yes Status: Chronic Qualifiers: Hypertension type: essential hypertension Qualified Code(s): I10 - Essential (primary) hypertension (4) Tobacco abuse Onset Date: 02/27/18 Current Visit: Yes Status: Chronic Discharge Plan: Home Plan to discharge in: 24 Hours - Code Status/Comfort Care Code Status Assessed: Yes Critical Care: No
--- NOTE | 2018-02-28 11:52 | P.PN ---
Subjective Date of Service: 02/28/18 Chief Complaint: hip fracture Subjective: Ambulating, Improving, Working w/ PT Physical Examination - Vital Signs Temperature: 99.3 F Blood Pressure: 121/77 Pulse: 97 Respirations: 16 Pulse Ox (%): 96 - Physical Exam General: Alert, In no apparent distress Musculoskeletal: Other (RLE: dressing c/d/i; +EHL/FHL/GSC/TA; sensation grossly intact distally) - Studies Medications List Reviewed: Yes Assessment And Plan - Plan Aj is a 63 yo male s/p R hip hemiarthroplasty POD#1 -PT to mobilize; WBAT RLE; posterior hip precautions -continue to monitor H/H -f/u rehab eval -lovenox for DVT prophylaxis
[2018-02-28] MEDS: HYDROCODONE/APAP 10/325 TAB PO PRN ×3 (13:50→22:05)
[2018-02-28] MEDS: ACETAMINOPHEN 500 MG TAB PO PRN (16:59)
[2018-02-28] MEDS: ATORVASTATIN 10 MG TAB PO SCH (22:01)
[2018-03-01] MEDS: NA CHLORIDE 0.9% 1,000 ML IV SCH ×4 (00:43→15:48)
[2018-03-01] MEDS: HYDROCODONE/APAP 10/325 TAB PO PRN ×5 (03:44→22:25)
[2018-03-01] MEDS: ACETAMINOPHEN 500 MG TAB PO PRN ×2 (05:05→21:00)
[2018-03-01 06:29] LABS: Absolute Lymphocytes (CBC) 1.7 K/uL (0.7-4.9); Absolute Monocytes 0.8 K/uL (0.1-1.3); Absolute Neutrophil 6.6 K/uL (1.8-8.0); Basophils % 0.8 % (0-1.3); Eosinophils % 1.7 % (0-4.4); Hematocrit 33.8 % (39.6-49.0); Lymphocytes % 18.1 % (15.3-44.8); MCV 100.7 fL (80-100); MPV 8.3 fL (7.6-11.3); RBC Red Blood Cell Count 3.36 M/uL (4.33-5.43)
[2018-03-01 06:54] LABS: BUN Blood Urea Nitrogen 7 mg/dL (6-20); Bicarbonate 28 mEq/L (21-31); Glucose Level 121 mg/dL (65-120); Potassium 3.2 mEq/L (3.6-5.0); Sodium Level 135 mEq/L (135-145)
[2018-03-01 07:05] LABS: Magnesium 2.2 mg/dL (1.8-2.5)
[2018-03-01] MEDS ORDERED: POTASSIUM 25 MEQ EFFERV TAB PO ONE ×2 (08:00→16:00)
[2018-03-01] MEDS: NICOTINE 21 MG/PAT TD SCH (08:41)
[2018-03-01] MEDS: hydroCHLOROthiazide 12.5 MG CAP PO SCH (08:42)
[2018-03-01] MEDS: ENOXAPARIN 40 MG/0.4 ML SQ SCH (08:42)
[2018-03-01] MEDS: PREGABALIN 75 MG CAP PO SCH ×3 (08:42→21:00)
[2018-03-01] MEDS: AMLODIPINE 10 MG TAB PO SCH (08:42)
--- NOTE | 2018-03-01 09:38 | P.PN ---
Subjective Date of Service: 03/01/18 Chief Complaint: hip fracture Subjective: Ambulating, Working w/ PT pain controlled; reports some constipation Physical Examination - Vital Signs Temperature: 99.4 F Blood Pressure: 118/70 Pulse: 81 Respirations: 16 Pulse Ox (%): 96 - Physical Exam General: Alert, In no apparent distress Musculoskeletal: Other (RLE: incision c/d/i; +EHL/FHL/GSC/TA; sensation grossly intact distally) - Studies Medications List Reviewed: Yes Assessment And Plan - Plan Aj is a 63 yo male s/p R hip hemiarthroplasty POD#2 -PT to mobilize; WBAT RLE; posterior hip precautions -f/u rehab eval -lovenox for DVT prophylaxis
[2018-03-01] MEDS: DOCUSATE NA 100 MG CAP PO PRN (15:53)
[2018-03-01] MEDS: ATORVASTATIN 10 MG TAB PO SCH (21:00)
[2018-03-01 22:27] LABS: Urine Appearance CLEAR; Urine Bilirubin NEGATIVE (NEG); Urine Blood NEGATIVE (NEG); Urine Color YELLOW; Urine Glucose NEGATIVE (NEG); Urine Protein NEGATIVE (NEG); Urine pH 7.5 (5.0-7.0)
[2018-03-01 22:34] LABS: Urine Microscopic Reflex NO UMIC
[2018-03-02] MEDS ORDERED: POTASSIUM 25 MEQ EFFERV TAB PO ONE ×2 (00:11→08:01)
[2018-03-02] MEDS: NA CHLORIDE 0.9% 1,000 ML IV SCH ×3 (00:45→18:02)
[2018-03-02] MEDS: HYDROCODONE/APAP 10/325 TAB PO PRN ×4 (02:39→19:57)
[2018-03-02 06:57] LABS: BUN Blood Urea Nitrogen 8 mg/dL (6-20); Bicarbonate 29 mEq/L (21-31); Glucose Level 111 mg/dL (65-120); Potassium 3.8 mEq/L (3.6-5.0); Sodium Level 136 mEq/L (135-145)
[2018-03-02] MEDS: NICOTINE 21 MG/PAT TD SCH (09:38)
[2018-03-02] MEDS: ENOXAPARIN 40 MG/0.4 ML SQ SCH (09:38)
[2018-03-02] MEDS: AMLODIPINE 10 MG TAB PO SCH (09:38)
[2018-03-02] MEDS: PREGABALIN 75 MG CAP PO SCH ×3 (09:38→20:01)
[2018-03-02] MEDS: hydroCHLOROthiazide 12.5 MG CAP PO SCH (09:38)
[2018-03-02] MEDS ORDERED: MAGNESIUM CITRATE 300 ML BOT PO PRN (11:07)
--- NOTE | 2018-03-02 11:22 | PN ---
Today, the patient is doing well. He is sitting in chair. He has been reviewed with physical therapy. His fever is controlled, no fever, no chills, no nausea, no vomiting. Has a good appetite. Physical Examination: VITAL SIGNS: Today, blood pressure is 155/75, respiratory rate 16, pulse 100, temperature 98.7 and saturation 96% on room air. GENERAL: He is alert and oriented x3. Does not look in any distress. HEENT: Atraumatic. Normocephalic. PERRLA. Oral mucosa is moist. Neck: Supple. No JVD. No carotid bruits. Chest: Clear to auscultation. Good air entry. Heart: Regular rate and rhythm. S1, S2 normal. No gallop or murmur. Abdomen: Soft. No masses. No hepatosplenomegaly. Positive bowel sounds. Extremities: No clubbing, or cyanosis, or edema. Right lower extremity, incision is clean. There is no discharge or bleeding. Laboratory Data: Labs today; CBC was normal except for hemoglobin stable . PT/ INR was normal. Electrolytes within normal except for a potassium 3.2, which is being replaced . Assessment And Plan: 1. Right hip fracture status post open reduction and internal fixation. Postoperation day 2, patient is doing very well. Continue physical therapy. 2. Alcohol abuse. Advised to quit. 3. Hypertension. Well controlled. On Norvasc, hydrochlorothiazide. 4. Pain controlled with Vicodin. 5. Deep venous thrombosis with Lovenox. 6. Drug abuse, on nicotine patch. 7. Discharge to rehab on Saturday. BECKIE Voice ID: [id number] Report ID: [id number] [facility]
[2018-03-02] MEDS ORDERED: Levofloxacin500mg IV 500 MG/100 ML BAG IV SCH (17:00)
[2018-03-02 17:02] LABS: Urine Appearance CLEAR; Urine Bilirubin NEGATIVE (NEG); Urine Blood NEGATIVE (NEG); Urine Color YELLOW; Urine Glucose NEGATIVE (NEG); Urine Protein NEGATIVE (NEG); Urine Specific Gravity <=1.005 (1.005-1.030); Urine pH 7.5 (5.0-7.0)
[2018-03-02 17:13] LABS: Urine Microscopic Reflex NO UMIC
--- NOTE | 2018-03-02 17:41 | PN ---
Subjective: Currently, patient is sitting in the chair. He is doing well. No chest pain. No abdom inal pain. No hip pain. He is able to ambulate, but he has been taking oral pain medication. Objective: Vital Signs: Blood pressure 132/74, respiratory rate 16, pulse 88, temperature 98.7. General: He is fully alert, oriented x3. He does not look in any distress. HEENT: Atraumatic, normocephalic. PERRLA. Oral mucosa is moist. Neck: Supple. No JVD. No carotid bruits. Chest: Clear to auscultation. Good air entry. Heart: Regular rate and rhythm. S1, S2 normal. No gallop or murmur. Abdomen: Soft, nontender. No masses. No hepatosplenomegaly. Positive bowel sounds. Extremities: No clubbing, cyanosis, or edema. No calf tenderness. Neurologic: Grossly intact. Laboratory Data: Labs today showed CBC was normal except for hemoglobin dropped to 11.1. CMP within normal and normal potassium. Assessment And Plan: 1.Right hip fracture status post open reduction and internal fixation, postoperative day #3. The jessica barron is doing great. Continue physical therapy and pain control. The patient will be going to [facility] in the morning after being accepted. 2.History of alcohol abuse status post fall, advice to quit immediately. 3.Hypertension, well controlled. Continue on Norvasc and hydrochlorothiazide. 4.Pain is well controlled with Vicodin. 5.Tobacco abuse, on nicotine patch. 6.Deep vein thrombosis prophylaxis, on Lovenox. 7.Anemia postop mild, observe. 8.Discharge to rehab on Saturday. JULIA/KAVON Voice ID: [id number] Report ID: [id number]
--- NOTE | 2018-03-02 18:20 | RAD REPORT ---
EXAM DESCRIPTION: RAD - Chest Single View - 03/02/2018 6:13 pm CLINICAL HISTORY: Fever COMPARISON: 02/26/2018 FINDINGS: Portable technique limits examination quality. Linear atelectasis is present in the left lung base. The lungs are otherwise clear. The heart is norm al in size. No displaced fractures. IMPRESSION: Linear atelectasis is noted in the left lung base.
[2018-03-02] MEDS: ATORVASTATIN 10 MG TAB PO SCH (20:01)
[2018-03-03] MEDS: HYDROCODONE/APAP 10/325 TAB PO PRN ×5 (00:47→21:19)
[2018-03-03] MEDS: NA CHLORIDE 0.9% 1,000 ML IV SCH ×3 (03:05→12:28)
[2018-03-03 05:04] LABS: BUN Blood Urea Nitrogen 7 mg/dL (6-20); Bicarbonate 29 mEq/L (21-31); Glucose Level 116 mg/dL (65-120); Potassium 3.7 mEq/L (3.6-5.0); Sodium Level 136 mEq/L (135-145)
[2018-03-03] MEDS ORDERED: POTASSIUM 25 MEQ EFFERV TAB PO ONE (05:15)
[2018-03-03] MEDS: DOCUSATE NA 100 MG CAP PO PRN (08:11)
[2018-03-03] MEDS: PREGABALIN 75 MG CAP PO SCH ×3 (08:11→21:18)
[2018-03-03] MEDS: hydroCHLOROthiazide 12.5 MG CAP PO SCH (08:11)
[2018-03-03] MEDS: NICOTINE 21 MG/PAT TD SCH (08:12)
[2018-03-03] MEDS: AMLODIPINE 10 MG TAB PO SCH (08:12)
[2018-03-03] MEDS: ENOXAPARIN 40 MG/0.4 ML SQ SCH (08:12)
[2018-03-03] MEDS ORDERED: MAGNESIUM HYDROXIDE 8% 30 ML PO PRN (11:27)
--- NOTE | 2018-03-03 12:10 | P.PN ---
Subjective Date of Service: 03/03/18 Chief Complaint: hip fracture Subjective: Tolerating diet, Ambulating, Improving, Working w/ PT pain controlled Physical Examination - Vital Signs Temperature: 99.6 F Blood Pressure: 141/66 Pulse: 101 Respirations: 18 Pulse Ox (%): 93 - Physical Exam General: Alert, In no apparent distress Musculoskeletal: Other (RLE: incision c/d/i; +EHL/FHL/GSC/TA; sensation grossly intact distally) - Studies Medications List Reviewed: Yes Assessment And Plan - Plan Aj is a 63 yo male s/p R hip hemiarthroplasty POD#4 -PT to mobilize; WBAT RLE; posterior hip precautions -f/u rehab eval; patient feels most comfortable going to rehab -lovenox for DVT prophylaxis
--- NOTE | 2018-03-03 16:36 | P.PN ---
Subjective Date of Service: 03/03/18 Chief Complaint: hip fracture Pt seen and examined at bedside with RN. S/o ORIF with Dr Collins. Doing well overall. No c/o overnight. Awaiting Placement At this time. Working with PT here in the acute care setting. Review of Systems 10-point ROS is otherwise unremarkable Physical Examination - Vital Signs Temperature: 99.6 F Blood Pressure: 141/66 Pulse: 101 Respirations: 18 Pulse Ox (%): 93 - Physical Exam General: Alert, In no apparent distress HEENT: Atraumatic, PERRLA, EOMI Neck: Supple, JVD not distended Respiratory: Clear to auscultation bilaterally, Normal air movement Cardiovascular: Regular rate/rhythm, Normal S1 S2 Gastrointestinal: Normal bowel sounds, No tenderness Musculoskeletal: No tenderness Integumentary: No rashes Neurological: Normal speech, Normal tone, Normal affect, Abnormal gait Lymphatics: No axilla or inguinal lymphadenopathy - Studies Medications List Reviewed: Yes Assessment & Plan - Problems (Diagnosis) (1) Hip fracture Onset Date: 02/27/18 Current Visit: Yes Status: Acute Plan: Right Hip fracture after sustaining a fall at home while being intoxicated -Ortho consulted. reccs appreciated -S/p ORIF pod # 4 -PT/OT -rehab Placement. Awaiting approval. Qualifiers: Encounter type: initial encounter Fracture type: closed Laterality: right Qualified Code(s): S72.001A - Fracture of unspecified part of neck of right femur, initial encounter for closed fracture (2) Alcohol abuse Current Visit: Yes Status: Chronic (3) HTN (hypertension) Onset Date: 02/27/18 Current Visit: Yes Status: Chronic Qualifiers: Hypertension type: essential hypertension Qualified Code(s): I10 - Essential (primary) hypertension (4) Tobacco abuse Onset Date: 02/27/18 Current Visit: Yes Status: Chronic Discharge Plan: Other Plan to discharge in: 48 Hours - Code Status/Comfort Care Code Status Assessed: Yes Critical Care: No
[2018-03-03] MEDS: ATORVASTATIN 10 MG TAB PO SCH (21:18)
[2018-03-04] MEDS: NA CHLORIDE 0.9% 1,000 ML IV SCH ×3 (00:04→08:46)
[2018-03-04] MEDS: HYDROCODONE/APAP 10/325 TAB PO PRN ×4 (01:25→15:46)
[2018-03-04 04:13] VITALS: BMI 24.3
[2018-03-04 05:03] LABS: BUN Blood Urea Nitrogen 9 mg/dL (6-20); Bicarbonate 29 mEq/L (21-31); Glucose Level 109 mg/dL (65-120); Potassium 3.9 mEq/L (3.6-5.0); Sodium Level 137 mEq/L (135-145)
[2018-03-04] MEDS ORDERED: POTASSIUM 25 MEQ EFFERV TAB PO ONE (05:55)
[2018-03-04] MEDS: NICOTINE 21 MG/PAT TD SCH (08:44)
[2018-03-04] MEDS: ENOXAPARIN 40 MG/0.4 ML SQ SCH (08:44)
[2018-03-04] MEDS: AMLODIPINE 10 MG TAB PO SCH (08:45)
[2018-03-04] MEDS: PREGABALIN 75 MG CAP PO SCH ×2 (08:45→13:14)
[2018-03-04] MEDS: hydroCHLOROthiazide 12.5 MG CAP PO SCH (08:45)
[2018-03-04] MEDS ORDERED: FLEET ENEMA ADULT PR ONE (09:21)
[2018-03-04 09:45] VITALS: TEMP 98.4
[2018-03-04 13:36] VITALS: O2SAT 97
[2018-03-04 14:30] VITALS: BP 116/64
--- NOTE | 2018-03-04 17:59 | P.DS ---
Admission Date: 02/26/18 Discharge Date: 03/04/18 Disposition: TRANSFER TO INPATIENT REHAB Discharge Condition: GOOD Reason for Admission: hip fracture Consultations: Orthopedics Procedures: Right Hip Hemiarthoplasty - Problems (1) Hip fracture Onset Date: 02/27/18 Status: Acute Qualifiers: Encounter type: initial encounter Fracture type: closed Laterality: right Qualified Code(s): S72.001A - Fracture of unspecified part of neck of right femur, initial encounter for closed fracture (2) Alcohol abuse Status: Chronic (3) HTN (hypertension) Onset Date: 02/27/18 Status: Chronic Qualifiers: Hypertension type: essential hypertension Qualified Code(s): I10 - Essential (primary) hypertension (4) Tobacco abuse Onset Date: 02/27/18 Status: Chronic Brief History of Present Illness: Mr Cosme is a 63 years old male with history of HTN, he stated that he drinks alcohol but not every day. Today he drank 3 beers. Today the patient tripped at the foot of the bed, and fell to the floor. He hit his right hip, and immediately after fall, he start feeling significant pain on his right hip, unable to bear weight on his right leg. At arrival he has alcohol smell, he is hemodynamically stable. WBC WNL, no fever or chills. CT hip report proximal right femur fracture extending from the lateral subcapital femoral head inferiorly and medially to the superior margin of the lesser trochanter. No head trauma. Hospital Course: Overall during the hospital stay patient remained stable The patient initially was admitted to the hospital after sustaining a mechanical fall at home and having a right femoral neck fracture. 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 Orthopedic surgeon was consulted here in the hospital patient was kept NPO after midnight and had a right hip hemiarthroplasty done in the a.m.. Patient had no complications during the procedure and did well overall after that as well. Patient was kept on the CIWA the protocol here for alcohol withdrawal however did well overall with that as well. Patient had physical therapy referral here in the hospital and physical therapy at that time recommended the patient get a referral to inpatient rehab to help with his ataxic gait along with rehab after she having a fracture. While here in the hospital patient was also found to have a regular heart rate and was started on his medication from home. Patient was approved for inpatient rehab by [facility] and thus will be transferred to inpatient rehab for higher level of care with ataxic gait and training for ambulation after having a femoral neck fracture. Patient will be following up with Orthopedics after 1 week post discharge. Patient also to continue taking DVT prophylaxis for 30 days postprocedure. Vital Signs/Physical Exam: Temp Pulse Resp BP Pulse Ox 98.4 F 75 16 116/64 93 03/04/18 12:00 03/04/18 12:00 03/04/18 12:00 03/04/18 12:00 03/04/18 12:00 General: Alert, In no apparent distress HEENT: Atraumatic, PERRLA, EOMI Neck: Supple, JVD not distended Respiratory: Clear to auscultation bilaterally, Normal air movement Cardiovascular: Regular rate/rhythm, Normal S1 S2 Gastrointestinal: Normal bowel sounds, No tenderness Musculoskeletal: No tenderness Integumentary: No rashes Neurological: Normal speech, Normal tone, Normal affect Lymphatics: No axilla or inguinal lymphadenopathy Laboratory Data at Discharge: WBC 9.4 K/uL (4.3-10.9) 03/01/18 05:32 Hgb 11.1 g/dL (13.6-17.9) L 03/01/18 05:32 Hct 33.8 % (39.6-49.0) L 03/01/18 05:32 Plt Count 200 K/uL (152-406) 03/01/18 05:32 PT 11.8 SECONDS (9.5-12.5) 02/26/18 17:15 INR 1.00 02/26/18 17:15 APTT 22.8 SECONDS (24.3-36.9) L 02/26/18 17:15 Sodium 137 mEq/L (135-145) 03/04/18 03:57 Potassium 3.9 mEq/L (3.6-5.0) 03/04/18 03:57 BUN 9 mg/dL (6-20) 03/04/18 03:57 Creatinine 0.80 mg/dL (0.61-1.24) 03/04/18 03:57 Glucose 109 mg/dL (65-120) 03/04/18 03:57 Magnesium 2.2 mg/dL (1.8-2.5) 03/01/18 05:32 Total Bilirubin 0.8 mg/dL (0.3-1.2) 02/26/18 17:15 AST 36 IU/L (10-42) 02/26/18 17:15 ALT 30 IU/L (10-60) 02/26/18 17:15 Alkaline Phosphatase 49 IU/L (42-121) 02/26/18 17:15 Home Medications: Amlodipine Besylate 10 mg PO DAILY 02/27/18 Atorvastatin Calcium [Lipitor*] 10 mg PO BEDTIME 02/27/18 Hydrochlorothiazide [Hydrochlorothiazide*] 12.5 mg PO DAILY 02/27/18 Hydrocodone/Acetaminophen [Hydrocodone-Acetamin 10-325 mg] 1 each PO TID Pregabalin [Lyrica*] 75 mg PO TID 02/27/18 Patient Discharge Instructions: Intructions from Orthopedics: 1. Change dressing to right hip daily with xeroform, 4x4, tape;. 2. WBAT RLE with posterior hip precautions;. 3. DVT prophylaxis for 30 days post surgery date. F/u with PCP in 1 week post discharge Diet: Regular Activity: Weight bearing as tolerated (RLE) Followup: Angel Collins MD [ACTIVE - CAN ADMIT] - 03/13/18
== END 2018-03-04 16:51 | DRG 470 ==
LOC: ER 17:04 → ERHOLD 19:35 → 4TH 21:32
PROVIDERS: ADMIT Internal Medicine; ATTEND Family Medicine
PROC: 0SRR0JZ Replacement of Right Hip Joint, Femoral Surface with Synthetic Substitute, Open Approach (ICD-10-PCS; principal; 2018-02-27 12:45)
DX: S72.011A Unspecified intracapsular fracture of right femur, initial encounter for closed fracture (principal); F10.239 Alcohol dependence with withdrawal, unspecified; W18.39XA Other fall on same level, initial encounter; Y93.01 Activity, walking, marching and hiking; F10.220 Alcohol dependence with intoxication, uncomplicated; T51.0X1A Toxic effect of ethanol, accidental (unintentional), initial encounter; Y90.6 Blood alcohol level of 120-199 mg/100 ml; D64.9 Anemia, unspecified; I10 Essential (primary) hypertension; R26.0 Ataxic gait; Y92.003 Bedroom of unspecified non-institutional (private) residence as the place of occurrence of the external cause
CPT/HCPCS: 36415; 71045; 72170; 73700; 80048; 80076; 80320; 81003; 83735; 84132; 85014; 85018; 85025; 85610; 85730; 87040; 87086; 87088; 88305; 88311; 93005; 96361; 96374; 96375; 97163; 99285; J0690; J1650; J2175; J2250; J2405; J3010; J7030

== ENCOUNTER 2018-03-04 15:24 | Inpatient (IN) | payer OTHER ==
--- NOTE | 2018-03-04 16:52 | R.PREADM ---
SCREENING DATE AND TIME 03/04/2018 15:33 (CDT) ANTICIPATED REHAB ADMISSION DATE 03/06/2018 REFERRING FACILITY [facility] REFERRAL DATE AND TIME 03/04/2018 15:34 (CDT) ACUTE ADMIT DATE 02/12/2018 Previous Rehabilitation(s): No. REFERRING PHYSICIAN Britta Muhammad REHAB FACILITY [facility] CLINICAL LIAISON Sunny Barber PHYSICIAN REVIEWER Dr. Thiago Hamilton M.D. MR# [id number] NAME ANABELA VALDEZ AD[address]ESS [address] [facility] [id number] DATE OF 1955 AGE 63 N# [id number] GENDER male MARITAL STATUS Single (Never ) RACE white ADMIT FROM 02 - [facility] PRE-HOSPITAL LIVING SETTING 01 - Home (private home/apt. board/care, assisted living, chcf, transitional living) HOME TYPE AND DETAILS Type of home: single family house # of steps to enter the residence: 0 # of steps within the residence: 0 # of levels in the residence: 1 PRE-HOSPITAL LIVING WITH Family/Relatives FAMILY SUPPORT Yes PRIMARY FAMILY CONTACT NAME Yumiko Vazquez PRIMARY FAMILY CONTACT PHONE PHONE PRIMARY FAMILY CONTACT ON ADM.? no IS PRIMARY FAMILY CONTACT AUTH. REP.? no 1ST EMERGENCY CONTACT Yumiko Vazquez 1ST CONTACT PHONE PHONE 1ST CONTACT ON ADM. no IS 1ST CONTACT AUTH. REP.? no PHONE 2ND CONTACT ON ADM.? no PATIENT EMPLOYMENT STATUS Retired (for age) PATIENT EMPLOYER No Employer PAYOR INFORMATION: 1ST PAYOR NAME [employer] 1ST PAYOR PHONE 1ST PAYOR INJURY/ILLNESS DUE TO ACCIDENT? No ANOTHER [employer] RESPONSIBLE? No PRIMARY REHAB/ACUTE DIAGNOSIS: proximal right femur fx ONSET DATE 02/26/2018 REHAB IMPAIRMENT CATEGORY (SIGIFREDO): 07 Fracture of LE (FracLE) MEETS 60% rule AFFECTED EXTREMITIES: RLE PRIMARY DIAGNOSIS-RELATED SURGERIES: Emergency right hip hemiarthroplasty - performed by DAYSI ORTIZ on 02/27/2018 COMORBID REHAB/ACUTE DIAGNOSES: - N/A tobacco use hypertension alcohol use INTERVENTIONS: - Hypertension Fluid management Medications VS RISK FOR COMPLICATIONS: - Hypertension CVA Hypotension CA TIA SUMMARY OF ACUTE HOSPITALIZATION: Pt. is a 63 yo Right-handed white male. On 02/26/2018 he was admitted to [facility] and underwent emergency surgery for proximal right femur fx (right hip hemiarthroplasty) by Britta Muhammad. Pre-morbidly, Pt. was independent/mod-I in Self-Care, Sphincter Control, Transfers Control, Communica tion, Social Cognition, and Locomotion; and he had good Sphincter Control. Currently, he has deficits of Transfers Control, Social Cognition, Endurance, Balance, Safety Awarene ss, Locomotion, and Self-Care. Pt. is now referred to [facility] for acute in-patient rehabilitation in order to maximize patient's functional independence in activities of daily living, strength, ROM, and mobi lity. Patient has realistic goal of being discharged at assistance level 6-Cat to reside at Home with Fam rama/Relatives. PAST MEDICAL HISTORY alcohol use hypertension tobacco use MEDICATION ALLERGIES: No Known Drug Allergies (NKDA) ENVIRONMENTAL ALLERGIES: - Substance Allergies None Known - Other Allergies None Known CODE STATUS: Full code WEIGHT/HEIGHT/BMI: WEIGHT 170 lbs HEIGHT 5' 9" BMI 25.1 DIET: - Diet Type Regular - Diet - Solid Texture Regular - Diet - Liquid Texture Regular - Tube Feed N/A SKIN DIAGRAM: Incision on Right hip; extent - small; stage - NS(Not Stageable). Treatment - Per Physician's Orders. REVIEW OF SYSTEMS: - Gen Alert and awake Lying in bed No apparent distress Oriented to: person, time, and place - Vital Signs Vital signs stable, afebrile - CVS RRR VITAL SIGNS Temperature: 99.3 F SBP/DBP: 121/77 Pulse: 97 Resp: 16 Vital signs stable, afebrile CURRENT SPHINCTER CONTROL: Pre-hospital bladder status: continent # of bladder accidents in the last 7 days prior to screenin Pre-hospital bowel status: continent # of bowel accidents in the last 7 days prior to screenin Last Bowel Movement Date: 03/04/2018 DETAILED CURRENT FUNCTIONAL STATUS: - Bladder accident frequency: Ind - No accidents in the past 7 days - Bowel accident frequency: Ind - No accidents in the past 7 days - Walking score based on distance walked: 0(N/A) FUNCTIONAL STATUS: - Self-Care A. Eating Ind Ind B. Grooming Ind Ind C. Bathing Ind Liv D. Dressing - Upper Ind Ind E. Dressing - Lower Ind modA F. Toileting Ind Liv - Sphincter Control G: Bladder control Ind Ind H: Bowel control Ind Ind - Transfers Control I. Bed/Chair/Wheelchair Ind modA J. Toilet Ind modA K. Tub/Shower Ind ADNO - Locomotion L. Walk/Wheelchair (B) Ind Dep M. Stairs Ind ADNO - Communication N. Comprehension (B) Ind Ind O. Expression (B) Ind Ind - Social Cognition P. Social Interaction Ind sup Q. Problem Solving Ind Ind R. Memory Ind Ind - Endurance Poor - Balance Poor - Safety Awareness Fair CURRENT FUNC. DEFICITS: Transfers Control, Social Cognition, Endurance, Balance, Safety Awareness, Locomotion, and Self-Care THERAPY NOTES FROM ACUTE CARE: Attached. SPECIAL NEEDS: - Safety Concerns Skin breakdown precautions needed due to skin breakdown risk PRECAUTIONS: - Posterior Hip Precaution No adduction across midline No external rotation No hip flexion >90 degrees No internal rotation No wheel chair propulsion - Weight Bearing Precaution WBAT right LE PATIENT NEEDS ACTIVE AND ONGOING THERAPEUTIC INTERVENTION OF MULTIPLE THERAPY DISCIPLINES, INCLUDING: - Occupational Therapy Evaluate and Treat. - Physical Therapy Evaluate and Treat. PATIENT NEEDS CLOSE MEDICAL SUPERVISION BY A REHABILITATION PHYSICIAN FOR: Bowel and Bladder Management Coordination of Treatment Team Medical and Co-Morbidity Management Post-Op Complications Wound Care PATIENT REQUIRES 24X7 REHAB NURSING FOR MEDICAL AND FUNCTIONAL MGT. OF THE FOLLOWING DEFICITS: ADL's Ambulation Bowel and Bladder Management Cognition Communication Disease Management Medication Management Patient/Family Education Providing Safe Environment Skin Integrity Transfers PATIENT REQUIRES INTENSIVE, COORDINATED INTERDISCIPLINARY APPROACH TO REHAB: Arranging Home Equipment/Services Discharge Planning Family Intervention/Training Digital Developer/Case Management PATIENT REHAB POTENTIAL: Expected level of measurable improvement will be of a practical value to patient's functional capacit y or adaptations to impairments Has a viable Discharge Plan Medically appropriate; condition is sufficiently stable to participate in intensive rehab program Patient is able and expected to receive 3 hours of individualized therapy daily on at least 5 of ever y 7 days Patient's prognosis for significant practical improvement within a reasonable period of time appears Good DISCHARGE PLAN: - Estimated Length of Stay (days) 14. - Consensus on plan Discharge plan has been discussed with primary caregiver. Patient/Family is in agreement with the phil n. Primary caregiver is in agreement with the plan. - Patient/Family Goals Return home with assistance. - Planned Living Setting Upon Discharge Home, to live with Family/Relatives. RECOMMENDED CARE LEVEL: IRF RECOMMENDATION DETAILS: Recommended Admission to Comprehensive Rehabilitation Program to Increase Functional [place] SCREENER'S COMPLETENESS CONFIRMATION: - Screening Confirmation The patient data collection on this preadmission screening form is finished PHYSICIANS REVIEW AND ADMISSION DETERMINATION Admit - Based on my review of the Pre-Admission Screening results, in my medical judgment and experie nce, I concur with the findings and recommend admission to [facility], as this patient requires an IRF level of care. SIGNATURE PANEL: Clinical Liaison - [electronically] signed by Judith Hansen on 03/04/2018 at 15:46 (CDT) Clinical Liaison - [electronically] signed by Sunny Barber on 03/04/2018 at 15:49 (CDT) Physician Reviewer - [electronically] signed by Dr. Thiago Hamilton M.D. on 03/04/2018 at 15:53 (CDT )
[2018-03-04 17:23] VITALS: BMI 24.0
[2018-03-04 18:31] LABS: Urine Appearance CLEAR; Urine Bilirubin NEGATIVE (NEG); Urine Blood NEGATIVE (NEG); Urine Color YELLOW; Urine Glucose NEGATIVE (NEG); Urine Protein NEGATIVE (NEG); Urine Specific Gravity <=1.005 (1.005-1.030); Urine Urobilinogen 0.2 mg/dL (0.2-1.0); Urine pH 7.5 (5.0-7.0)
[2018-03-04 19:13] LABS: Urine Bacteria <20 /HPF (NONE SEEN); Urine Culture Reflex Order NOT NEEDED; Urine RBC <5 /HPF (NONE SEEN)
[2018-03-04] MEDS: ATORVASTATIN 10 MG TAB PO SCH (20:50)
[2018-03-04] MEDS: HYDROCODONE/APAP 10/325 TAB PO PRN (20:50)
[2018-03-04] MEDS: PREGABALIN 75 MG CAP PO SCH (20:50)
[2018-03-04] MEDS ORDERED: PNEUMOCOCCAL VACCINE 0.5 ML IMVAC ONE (21:00)
[2018-03-05] MEDS: HYDROCODONE/APAP 10/325 TAB PO PRN ×5 (01:07→20:15)
--- NOTE | 2018-03-05 02:51 | FAST ---
SHIFT START DATE/TIME: 03/04/2018 19:00 (CDT) SHIFT END DATE/TIME: 03/05/2018 07:00 (CDT) NAME ANABELA VALDEZ DATE OF : 1955 DATE OF ADMISSION: 03/04/2018 16:50 (CDT) PHONE: AGE: 63 [facility]# [id number] GENDER: Male ENCOUNTER PHYSICIAN: Dr. Thiago Hamilton M.D. ADMISSION DIAGNOSIS: - Orthopaedic Disorders 08 - Unilateral Hip Fracture (08.11) proximal right femur fx. EATING: Activity did not occur on this shift EATING - SCORE: 0-UNK GROOMING: Wash, rinse, and dry face Wash, rinse, and dry hands GROOMING - STEP 1: Does the patient require assistance when grooming? Yes. GROOMING - STEP 2: Does the patient require the assistance of a helper? Yes. GROOMING - STEP 3: How much assistance does the patient require from the helper? Only prior equipment preparation/set up from the helper GROOMING - SCORE: 5-SUP BATHING: Activity did not occur on this shift BATHING - SCORE: 0-UNK DRESSING - UPPER BODY: Patient is not dressing in public clothing ARTICLES SCORE Total number of steps: 0 DRESSING - UPPER BODY - SCORE: 0-UNK DRESSING - LOWER BODY: Patient is not dressing in public clothing ARTICLES SCORE Total number of steps: 0 DRESSING - LOWER BODY - SCORE: 0-UNK TOILETING: TOILETING - STEP 1: Does the patient require assistance with toileting? Yes. TOILETING - STEP 2: Does the patient require the assistance of a helper? Yes. TOILETING - STEP 3: How much assistance does the patient require from the helper? Only supervision TOILETING - SCORE: 5-SUP BLADDER MANAGEMENT: BLADDER MANAGEMENT - STEP 1: Does the patient control the bladder completely and intentionally without equipment or devices or med ications, and is always continent? No. BLADDER MANAGEMENT - STEP 2: Does the patient require the assistance of a helper? Yes. BLADDER MANAGEMENT - STEP 3: How much assistance does the patient require from the helper? Only set-up of equipment - such as plac ing it within reach of the patient or emptying a device - to maintain either satisfactory voiding pat tern or managing an external device, such as an absorbent pad, ileal device, or catheter BLADDER MANAGEMENT - SCORE: 5-SUP BOWEL MANAGEMENT: Activity did not occur on this shift BOWEL MANAGEMENT - SCORE: 7-IND TRANSFERS: BED, CHAIR, WHEELCHAIR: TRANSFERS: BED, CHAIR, WHEELCHAIR - STEP 1: Does the patient require assistance with bed, chair, or wheelchair transfers? Yes. TRANSFERS: BED, CHAIR, WHEELCHAIR - STEP 2: Does the patient require the assistance of a helper? Yes. TRANSFERS: BED, CHAIR, WHEELCHAIR - STEP 3: How much assistance does the patient require from the helper? Steadying/guiding assistance TRANSFERS: BED, CHAIR, WHEELCHAIR - SCORE: 4-MIN TRANSFERS: TOILET: TRANSFERS: TOILET - STEP 1: Does the patient require assistance with toilet transfers? Yes. TRANSFERS: TOILET - STEP 2: Does the patient require the assistance of a helper? Yes. TRANSFERS: TOILET - STEP 3: How much assistance does the patient require from the helper? Only supervision, cuing, coaxing, OR he lp to set out transfer equipment or to lock brakes and/or lift foot rests TRANSFERS: TOILET - SCORE: 5-SUP TRANSFERS: SHOWER: Activity did not occur on this shift TRANSFERS: SHOWER - SCORE: 0-UNK TRANSFERS: TUB: Activity did not occur on this shift TRANSFERS: TUB - SCORE: 0-UNK LOCOMOTION: WALK: Activity did not occur on this shift LOCOMOTION: WALK - SCORE: 0-UNK LOCOMOTION: WHEELCHAIR: Activity did not occur on this shift LOCOMOTION: WHEELCHAIR - SCORE: 0-UNK COMPREHENSION: COMPREHENSION - STEP 1: Does the patient require help to understand complex and abstract ideas (such as current events, finan roni, discharge planning, medical issues, relationships, etc)? No. COMPREHENSION - STEP 2: Does the patient need extra time, require an assistive device (such as glasses, hearing aids, or an a ugmentative communication system), OR does s/he have mild difficulty expressing complex and abstract ideas (including mild dysarthria or mild word-finding problems)? Yes. COMPREHENSION - SCORE: 6-MARISSA EXPRESSION EXPRESSION - STEP 1: Does the patient require help expressing complex and abstract ideas (such as current events, finances , discharge planning, medical issues, relationships, etc)? No. EXPRESSION - STEP 2: Does the patient need extra time, require an assistive device (such as augmentive communication syste m or a communication board), OR does s/he have mild difficulty expressing complex and abstract ideas (including mild dysarthria or mild word-find problems)? No. EXPRESSION - SCORE: 7-IND SOCIAL INTERACTION: SOCIAL INTERACTION - STEP 1: Does the patient require a helper to interact with others in social and therapeutic situations? No. SOCIAL INTERACTION - STEP 2: Does the patient need extra time in social situations, OR does s/he interact with staff, other patien ts, and family members ONLY in structured environments, OR does s/he require medication for social in teraction? No. SOCIAL INTERACTION - SCORE: 7-IND PROBLEM SOLVING: PROBLEM SOLVING - STEP 1: Does the patient need help to solve complex problems such as managing a checking account or confronti ng interpersonal problems? No. PROBLEM SOLVING - STEP 2: Does the patient require extra time to make decisions or solve problems, OR does s/he have slight dif ficulty reading, initiating, or self-correcting in unfamiliar situations? Yes, patient needs extra ti me. PROBLEM SOLVING - SCORE: 6-MARISSA MEMORY: MEMORY - STEP 1: Does the patient need help to remember frequently encountered people, daily routines, and executing r equests? No. MEMORY - STEP 2: Does the patient have slight difficulty recognizing frequently encountered people, daily routines, or executing requests without the need for repetition or using self-initiated or environmental cues to remember? No. MEMORY - SCORE: 7-IND SIGNATURE PANEL: The following modified sections: Eating - Score, Grooming - Score, Dressing - Upper Body - Score, Sandip ssing - Lower Body - Score, Toileting - Score, Bladder Management - Score, Bowel Management - Score, Transfers: Bed, Chair, Wheelchair - Score, Transfers: Toilet - Score, Transfers: Shower - Score, Vale sfers: Tub - Score, Locomotion: Walk - Score, Locomotion: Wheelchair - Score, Comprehension - Score, Expression - Score, Social Interaction - Score, Problem Solving - Score, Memory - Score were [electro nically] signed by Gaviota Matthews CNA on SatMar 05 2018 01:53:38 GMT-0500 (Central Daylight Time)
[2018-03-05 06:13] LABS: Absolute Neutrophil 2.8 K/uL (1.8-8.0); Basophils % 1.1 % (0-1.3); Eosinophils % 11.2 % (0-4.4); Lymphocytes % 29.8 % (15.3-44.8); MCH 33.3 pg (27.0-35.0); MCV 100.3 fL (80-100); MPV 7.4 fL (7.6-11.3); Monocytes % 15.5 % (3.3-12.3); RBC Red Blood Cell Count 3.09 M/uL (4.33-5.43)
[2018-03-05 07:33] LABS: Blood Morphology Comment NOT SEEN (NOT SEEN); Platelet Estimate ADEQ; Urine White Blood Cell Casts OK
[2018-03-05] MEDS: AMLODIPINE 10 MG TAB PO SCH (08:00)
[2018-03-05] MEDS: hydroCHLOROthiazide 12.5 MG CAP PO SCH (08:00)
[2018-03-05] MEDS: ENOXAPARIN 40 MG/0.4 ML SQ SCH (08:34)
[2018-03-05] MEDS: PREGABALIN 75 MG CAP PO SCH ×4 (08:34→20:03)
[2018-03-05] MEDS: NICOTINE 21 MG/PAT TD SCH (08:35)
[2018-03-05 09:59] LABS: Albumin 2.7 g/dL (3.2-5.5); BUN Blood Urea Nitrogen 8 mg/dL (6-20); Bicarbonate 29 mEq/L (21-31); Glucose Level 112 mg/dL (65-120); Potassium 4.4 mEq/L (3.6-5.0); Sodium Level 136 mEq/L (135-145)
[2018-03-05] MEDS ORDERED: PNEUMOCOCCAL VACCINE 0.5 ML IMVAC ONE (10:00)
--- NOTE | 2018-03-05 14:39 | PAPE ---
PATIENT: [facility] MR# [id number] REFERRING DOCTOR miguel angel Muhammad EVALUATION DATE AND TIME 03/05/2018 13:38 (CDT) NAME ANABELA VALDEZ DATE OF 1955 AGE 63 PHONE N# [id number] GENDER male EVALUATING PHYSICIAN Dr. Thiago Hamilton M.D. ADMISSION DIAGNOSIS: proximal right femur fx ONSET DATE 02/26/2018 SECONDARY/COMORBID DIAGNOSES TIERED: - N/A tobacco use hypertension alcohol use POST-ADMISSION FUNCTIONAL/MEDICAL STATUS: - Bladder Same accident frequency: Ind - No accidents in the past 7 days - Bowel Same accident frequency: Ind - No accidents in the past 7 days - Walking Same score based on distance walked: 0(N/A) STATUS CHANGE EVALUATION: No change in Functional or Medical Status is identified compared with Pre-Admission screening. PATIENT NEEDS CLOSE MEDICAL SUPERVISION BY A REHABILITATION PHYSICIAN FOR: Bowel and Bladder Management Coordination of Treatment Team Medical and Co-Morbidity Management Post-Op Complications Wound Care PATIENT REQUIRES 24X7 REHAB NURSING FOR MEDICAL AND FUNCTIONAL MGT. OF THE FOLLOWING DEFICITS: ADL's Ambulation Bowel and Bladder Management Cognition Communication Disease Management Medication Management Patient/Family Education Providing Safe Environment Skin Integrity Transfers PATIENT REQUIRES INTENSIVE, COORDINATED INTERDISCIPLINARY APPROACH TO REHAB: Arranging Home Equipment/Services Discharge Planning Family Intervention/Training Hand Coke Drawer/Case Management LIST OF IDENTIFIED AND POTENTIAL PROBLEMS: Alteration in leisure activities Bladder, Incontinence Blood Pressure, Hypertension/hypotension Issues Bowel, Incontinence Infection, Actual or Potential Mobility Impaired Pain, Alteration in Comfort Self Care Deficit Skin Integrity, Actual or Potential Urinary Tract Infection (UTI), Actual or Potential RISK FOR COMPLICATIONS - Hypertension CVA. Hypotension. [place]. TIA. INTERVENTIONS - Hypertension PATIENT COULD BE AT RISK FOR COMPLICATIONS FROM ADVERSE MEDICAL CONDITIONS DUE TO HIS/HER COMORBIDITI ES AND THE RIGORS OF THE INTENSIVE REHABILLITATION PROGRAM. METHODS OR INTERVENTIONS TO AVOID COMPLIC ATIONS INCLUDE: - Bleeding Assess lab values and manage abnormalities. Nursing to teach precautions for anti-coagulation therapy . Wound to be assessed every shift. - Infection Clinical staff to assess and manage the signs and symptoms of infection including fever, redness, war mth, etc. - Urinary Tract Infection - Falls Patient will be evaluated for Fall Precautions and will be placed on Fall Precautions as indicated pe r protocol. - Skin Breakdown Nursing will assess skin daily using assessment tool and will place on Skin Breakdown Precautions as indicated per protocol. - Pain Clinical staff may employ non-medication methods such as massage, distraction, decrease stimulus, etc . as needed. Clinical staff will assess patient's pain level every shift per protocol to assess and e nsure pain management effectiveness. Medications will be given and the pain level re-assessed. PRELIMINARY PLAN OF CARE: - Physical Therapy Patient needs Physical Therapy for a daily minimum of 1.5 hours at least 5 out of 7 days, to improve: Mobility, Strengthening, Transfers, Stretching, ROM, Endurance, Ability to manage stairs, Gait, and Balance. - Rehabilitation Nursing Patient requires 24x7 Rehabilitation Nursing for: Pain Issues, Identifying and preventing risk factor s, Monitoring and reporting current medical conditions, Assisting with ambulation and transfer, Lesly ting with all ADL-s, Teaching patients about disease process and medications, Family teaching, Provid ing safe environment, Bowel and Bladder Issues, Skin Integrity, and Medication Management. Patient needs Hand Coke Drawer and/or Case Management for: Discharge Planning, Arranging Home Equipmen t or Services, and Family Interventions. - Dietary and Nutrition Services Patient needs Dietary and Nutrition Services for: Adequate Nutrition, Nutritional Supplements, and Nu tritional Education. - Occupational Therapy Patient needs Occupational Therapy for a daily minimum of 1.5 hours at least 5 out of 7 days, to impr ove Activities of Daily Living, including: Eating, Grooming, Bathing, Dressing, Toileting, Toilet Tra nsfers, Community Reintegration, Higher functional activities, Adaptive Equipment, Splinting, Househo ld Tasks, and Other activities as determined. POTENTIAL FUNCTIONAL GOALS FOR PATIENT TO ACHIEVE BY DISCHARGE: - Safety Precaution Patient will remain free from falls or injury at time of discharge. - Bed Mobility Patient will perform bed mobility at 4-Liv level of assistance. - Transfers Patient will complete transfers from bed to chair at 4-Liv level of assistance. - Mobility Patient will ambulate 150 ft with 4-Liv level of assistance with RW. PATIENT REHAB POTENTIAL Expected level of measurable improvement will be of a practical value to patient's functional capacit y or adaptations to impairments Has a viable Discharge Plan Medically appropriate; condition is sufficiently stable to participate in intensive rehab program Patient is able and expected to receive 3 hours of individualized therapy daily on at least 5 of ever y 7 days Patient's prognosis for significant practical improvement within a reasonable period of time appears Good DISCHARGE PLAN: - Estimated Length of Stay (days) 14. - Consensus on plan Discharge plan has been discussed with primary caregiver. Patient/Family is in agreement with the phil n. Primary caregiver is in agreement with the plan. - Patient/Family Goals Return home with assistance. - Planned Living Setting Upon Discharge Home, to live with Family/Relatives. CONCLUSION ON REHABILITATION NECESSITY: I have evaluated patient's pre-admission functional status and, comparing it to the patient's post-ad mission functional status now, I conclude that the pre-admission assessment was accurate. Patient's c ondition on admission supports the medical necessity of admission to IRF. It is safe to proceed with patient's therapy program. SIGNATURE PANEL: (CDT)
[2018-03-05 14:56] LABS: Prealbumin 11.3 mg/dl (18-38)
--- NOTE | 2018-03-05 15:44 | FAST ---
SHIFT START DATE/TIME: 03/05/2018 07:00 (CDT) SHIFT END DATE/TIME: 03/05/2018 19:00 (CDT) NAME ANABELA VALDEZ DATE OF : 1955 DATE OF ADMISSION: 03/04/2018 16:50 (CDT) PHONE: AGE: 63 [facility]# [id number] GENDER: Male ENCOUNTER PHYSICIAN: Dr. Thiago Hamilton M.D. ADMISSION DIAGNOSIS: - Orthopaedic Disorders 08 - Unilateral Hip Fracture (08.11) proximal right femur fx. EATING: EATING - STEP 1: Does the patient require assistance when eating? Yes. EATING - STEP 2: Does the patient require the assistance of a helper? No, patient only requires an assistive device, O R s/he takes more than reasonable time to eat, OR there is a safety concern, OR s/he requires modifie d food consistency EATING - SCORE: 6-MARISSA GROOMING: Comb/brush hair Oral care Wash, rinse, and dry face Wash, rinse, and dry hands GROOMING - STEP 1: Does the patient require assistance when grooming? Yes. GROOMING - STEP 2: Does the patient require the assistance of a helper? No. The patient only requires an assistive devic e, OR takes more than reasonable time to groom, OR there is a concern for safety as the patient groom s GROOMING - SCORE: 6-MARISSA BATHING: Activity did not occur on this shift BATHING - SCORE: 0-UNK DRESSING - UPPER BODY: Activity did not occur on this shift ARTICLES SCORE Total number of steps: 0 DRESSING - UPPER BODY - SCORE: 0-UNK DRESSING - LOWER BODY: Activity did not occur on this shift ARTICLES SCORE Total number of steps: 0 DRESSING - LOWER BODY - SCORE: 0-UNK TOILETING: TOILETING - STEP 1: Does the patient require assistance with toileting? Yes. TOILETING - STEP 2: Does the patient require the assistance of a helper? Yes. TOILETING - STEP 3: How much assistance does the patient require from the helper? Hands-on assistance from the helper TOILETING - STEP 4: Of the 3 tasks: 1) Adjusting clothing prior to use, 2) Cleansing of perineal area, 3) Adjusting clot lola after use; How many tasks does the patient perform WITHOUT assistance of the helper? Three tasks with steadying assistance from the helper TOILETING - SCORE: 4-MIN BLADDER MANAGEMENT: BLADDER MANAGEMENT - STEP 1: Does the patient control the bladder completely and intentionally without equipment or devices or med ications, and is always continent? No. BLADDER MANAGEMENT - STEP 2: Does the patient require the assistance of a helper? No, patient requires and independently uses an a ssistive device, such as a urinal, bedpan, bedside commode, catheter, absorbent pad, or collecting de vice BLADDER MANAGEMENT - SCORE: 6-MARISSA BOWEL MANAGEMENT: Activity did not occur on this shift BOWEL MANAGEMENT - SCORE: 7-IND TRANSFERS: BED, CHAIR, WHEELCHAIR: TRANSFERS: BED, CHAIR, WHEELCHAIR - STEP 1: Does the patient require assistance with bed, chair, or wheelchair transfers? Yes. TRANSFERS: BED, CHAIR, WHEELCHAIR - STEP 2: Does the patient require the assistance of a helper? Yes. TRANSFERS: BED, CHAIR, WHEELCHAIR - STEP 3: How much assistance does the patient require from the helper? Steadying/guiding assistance TRANSFERS: BED, CHAIR, WHEELCHAIR - SCORE: 4-MIN TRANSFERS: TOILET: TRANSFERS: TOILET - STEP 1: Does the patient require assistance with toilet transfers? Yes. TRANSFERS: TOILET - STEP 2: Does the patient require the assistance of a helper? Yes. TRANSFERS: TOILET - STEP 3: How much assistance does the patient require from the helper? Patient performs half or more of the tr ansferring tasks TRANSFERS: TOILET - STEP 4: Does the patient need only incidental help such as contact guard or steadying during toilet transfer? Yes. TRANSFERS: TOILET - SCORE: 4-MIN TRANSFERS: SHOWER: Activity did not occur on this shift TRANSFERS: SHOWER - SCORE: 0-UNK TRANSFERS: TUB: Activity did not occur on this shift TRANSFERS: TUB - SCORE: 0-UNK LOCOMOTION: WALK: Activity did not occur on this shift LOCOMOTION: WALK - SCORE: 0-UNK LOCOMOTION: WHEELCHAIR: Activity did not occur on this shift LOCOMOTION: WHEELCHAIR - SCORE: 0-UNK COMPREHENSION: COMPREHENSION - SCORE: 0-UNK EXPRESSION EXPRESSION - SCORE: 0-UNK SOCIAL INTERACTION: SOCIAL INTERACTION - SCORE: 0-UNK PROBLEM SOLVING: PROBLEM SOLVING - SCORE: 0-UNK MEMORY: MEMORY - SCORE: 0-UNK SIGNATURE PANEL: The following modified sections: Eating - Score, Grooming - Score, Bathing - Score, Dressing - Upper Body - Score, Dressing - Lower Body - Score, Toileting - Score, Bladder Management - Score, Bowel Man agement - Score, Transfers: Bed, Chair, Wheelchair - Score, Transfers: Toilet - Score, Transfers: Sonya wer - Score, Transfers: Tub - Score, Locomotion: Walk - Score, Locomotion: Wheelchair - Score, Compre hension - Score, Expression - Score, Social Interaction - Score, Problem Solving - Score, Memory - Sc ore were [electronically] signed by Julian Torres on SatMar 05 2018 14:46:00 GMT-0500 (Central Daylight Time)
--- NOTE | 2018-03-05 18:28 | FAST ---
ENCOUNTER DATE AND TIME: 03/05/2018 08:00 (CDT) NAME ANABELA VALDEZ DATE OF : 1955 DATE OF ADMISSION: 03/04/2018 16:50 (CDT) PHONE: AGE: 63 N# [id number] GENDER: Male ENCOUNTER PHYSICIAN: Dr. Thiago Hamilton M.D. ADMISSION DIAGNOSIS: - Orthopaedic Disorders 08 - Unilateral Hip Fracture (08.11) proximal right femur fx. EATING: Activity did not occur on this shift EATING - SCORE: 0-UNK GROOMING: Activity did not occur on this shift GROOMING - SCORE: 0-UNK BATHING: Activity did not occur on this shift BATHING - SCORE: 0-UNK DRESSING - UPPER BODY: Activity did not occur on this shift Patient is not dressing in public clothing ARTICLES SCORE Total number of steps: 0 DRESSING - UPPER BODY - SCORE: 0-UNK DRESSING - LOWER BODY: Activity did not occur on this shift Patient is not dressing in public clothing ARTICLES SCORE Total number of steps: 0 DRESSING - LOWER BODY - SCORE: 0-UNK TOILETING: Activity did not occur on this shift TOILETING - SCORE: 0-UNK BLADDER MANAGEMENT: Activity did not occur on this shift BLADDER MANAGEMENT - SCORE: 7-IND BOWEL MANAGEMENT: Activity did not occur on this shift BOWEL MANAGEMENT - SCORE: 7-IND TRANSFERS: BED, CHAIR, WHEELCHAIR: TRANSFERS: BED, CHAIR, WHEELCHAIR - STEP 1: Does the patient require assistance with bed, chair, or wheelchair transfers? Yes. TRANSFERS: BED, CHAIR, WHEELCHAIR - STEP 2: Does the patient require the assistance of a helper? Yes. TRANSFERS: BED, CHAIR, WHEELCHAIR - STEP 3: How much assistance does the patient require from the helper? Only supervision TRANSFERS: BED, CHAIR, WHEELCHAIR - SCORE: 5-SUP TRANSFERS: TOILET: Activity did not occur on this shift TRANSFERS: TOILET - SCORE: 0-UNK TRANSFERS: SHOWER: Activity did not occur on this shift TRANSFERS: SHOWER - SCORE: 0-UNK TRANSFERS: TUB: Activity did not occur on this shift TRANSFERS: TUB - SCORE: 0-UNK LOCOMOTION: WALK: LOCOMOTION: WALK - STEP 1: Does the patient need help to walk 150 feet? Yes. LOCOMOTION: WALK - STEP 2: How much assistance does the patient require to walk a minimum of 150 feet? Only supervision, cuing, or coaxing LOCOMOTION: WALK - SCORE: 5-SUP LOCOMOTION: WHEELCHAIR: Activity did not occur on this shift LOCOMOTION: WHEELCHAIR - SCORE: 0-UNK LOCOMOTION: STAIRS: LOCOMOTION: STAIRS - STEP 1: Does the patient need help to go up and down 12 to 14 stairs? Yes. LOCOMOTION: STAIRS - STEP 2: How much assistance does the patient need from the helper to go a minimum of 12 to 14 stairs? Only trent pervision, cuing, or coaxing LOCOMOTION: STAIRS - SCORE: 5-SUP COMPREHENSION: COMPREHENSION - SCORE: 0-UNK EXPRESSION EXPRESSION - SCORE: 0-UNK SOCIAL INTERACTION: SOCIAL INTERACTION - SCORE: 0-UNK PROBLEM SOLVING: PROBLEM SOLVING - SCORE: 0-UNK MEMORY: MEMORY - SCORE: 0-UNK SIGNATURE PANEL: The following modified sections: Transfers: Bed, Chair, Wheelchair - Score, Transfers: Toilet - Score , Locomotion: Walk - Score, Locomotion: Wheelchair - Score, Locomotion: Stairs - Score were [electron ically] signed by Andrea Avendano PT on SatMar 05 2018 17:29:53 T-0500 (Central Daylight Time)
[2018-03-05] MEDS ORDERED: MAGNES/ALUMIN/SIMET 30ML UCUP PO PRN (18:30)
[2018-03-05] MEDS ORDERED: SIMETHICONE 80 MG TAB PO PRN (18:30)
[2018-03-05] MEDS ORDERED: MELATONIN 3 MG TABLET PO PRN (18:31)
--- NOTE | 2018-03-05 19:19 | FAST ---
ENCOUNTER DATE AND TIME: 03/05/2018 08:00 (CDT) NAME ANABELA VALDEZ DATE OF : 1955 DATE OF ADMISSION: 03/04/2018 16:50 (CDT) PHONE: AGE: 63 N# [id number] GENDER: Male ENCOUNTER PHYSICIAN: Dr. Thiago Hamilton M.D. ADMISSION DIAGNOSIS: - Orthopaedic Disorders 08 - Unilateral Hip Fracture (08.11) proximal right femur fx. EATING: EATING - STEP 1: Does the patient require assistance when eating? No. EATING - SCORE: 7-IND GROOMING: Oral care Wash, rinse, and dry face Wash, rinse, and dry hands GROOMING - STEP 1: Does the patient require assistance when grooming? No. GROOMING - SCORE: 7-IND BATHING: Abdomen Buttocks Chest Left arm Left lower leg and foot Left upper leg Perineal area Right arm Right lower leg and foot Right upper leg BATHING - STEP 1: Does the patient require assistance when bathing? Yes. BATHING - STEP 2: Does the patient require the assistance of a helper? Yes. BATHING - STEP 3: How much assistance does the patient require from the helper? Only incidental help such as placement of a wash cloth in his/her hand a few times as s/he bathes OR help to bathe just one or two areas of the body BATHING - SCORE: 4-MIN DRESSING - UPPER BODY: T-shirt/pullover shirt (four steps) ARTICLES SCORE Total number of steps: 4 DRESSING - UPPER BODY - STEP 1: Does the patient require help when dressing above the waist? Yes. DRESSING - UPPER BODY - STEP 2: Does the patient require the assistance of a helper? Yes. DRESSING - UPPER BODY - STEP 3: Does the helper touch the patient while dressing? No. DRESSING - UPPER BODY - SCORE: 5-SUP DRESSING - LOWER BODY: Elastic waist pants (three steps) Sock - Left foot (one step) Sock - Right foot (one step) Underwear (three steps) ARTICLES SCORE Total number of steps: 8 DRESSING - LOWER BODY - STEP 1: Does the patient require help when dressing below the waist? Yes. DRESSING - LOWER BODY - STEP 2: Does the patient require the assistance of a helper? Yes. DRESSING - LOWER BODY - STEP 3: Does the helper touch the patient while dressing? Yes. DRESSING - LOWER BODY - STEP 4: How many of the total steps does the patient complete on his/her own? 2 DRESSING - LOWER BODY - STEP 5: Does patient require total assistance for dressing below the waist such as the helper holding clothin g and performing basically all the activities? No. DRESSING - LOWER BODY - SCORE: 2-MAX TOILETING: TOILETING - STEP 1: Does the patient require assistance with toileting? Yes. TOILETING - STEP 2: Does the patient require the assistance of a helper? Yes. TOILETING - STEP 3: How much assistance does the patient require from the helper? Only supervision TOILETING - SCORE: 5-SUP BLADDER MANAGEMENT: Activity did not occur on this shift BLADDER MANAGEMENT - SCORE: 7-IND BOWEL MANAGEMENT: Activity did not occur on this shift BOWEL MANAGEMENT - SCORE: 7-IND TRANSFERS: BED, CHAIR, WHEELCHAIR: Activity did not occur on this shift TRANSFERS: BED, CHAIR, WHEELCHAIR - SCORE: 0-UNK TRANSFERS: TOILET: TRANSFERS: TOILET - STEP 1: Does the patient require assistance with toilet transfers? Yes. TRANSFERS: TOILET - STEP 2: Does the patient require the assistance of a helper? Yes. TRANSFERS: TOILET - STEP 3: How much assistance does the patient require from the helper? Only supervision, cuing, coaxing, OR he lp to set out transfer equipment or to lock brakes and/or lift foot rests TRANSFERS: TOILET - SCORE: 5-SUP TRANSFERS: SHOWER: TRANSFERS: SHOWER - STEP 1: Does the patient require assistance with shower transfers? Yes. TRANSFERS: SHOWER - STEP 2: Does the patient require the assistance of a helper? Yes. TRANSFERS: SHOWER - STEP 3: How much assistance does the patient require from the helper? Only incidental help such as contact gu arding or steadying during shower transfers, or help to lift one leg into the shower TRANSFERS: SHOWER - SCORE: 4-MIN TRANSFERS: TUB: Activity did not occur on this shift TRANSFERS: TUB - SCORE: 0-UNK LOCOMOTION: WALK: Activity did not occur on this shift LOCOMOTION: WALK - SCORE: 0-UNK LOCOMOTION: WHEELCHAIR: Activity did not occur on this shift LOCOMOTION: WHEELCHAIR - SCORE: 0-UNK LOCOMOTION: STAIRS: Activity did not occur on this shift LOCOMOTION: STAIRS - SCORE: 0-UNK COMPREHENSION: COMPREHENSION: TYPE: Both COMPREHENSION - STEP 1: Does the patient require help to understand complex and abstract ideas (such as current events, finan roni, discharge planning, medical issues, relationships, etc)? No. COMPREHENSION - STEP 2: Does the patient need extra time, require an assistive device (such as glasses, hearing aids, or an a ugmentative communication system), OR does s/he have mild difficulty expressing complex and abstract ideas (including mild dysarthria or mild word-finding problems)? No. COMPREHENSION - SCORE: 7-IND EXPRESSION EXPRESSION: TYPE: Both EXPRESSION - STEP 1: Does the patient require help expressing complex and abstract ideas (such as current events, finances , discharge planning, medical issues, relationships, etc)? No. EXPRESSION - STEP 2: Does the patient need extra time, require an assistive device (such as augmentive communication syste m or a communication board), OR does s/he have mild difficulty expressing complex and abstract ideas (including mild dysarthria or mild word-find problems)? No. EXPRESSION - SCORE: 7-IND SOCIAL INTERACTION: SOCIAL INTERACTION - STEP 1: Does the patient require a helper to interact with others in social and therapeutic situations? No. SOCIAL INTERACTION - STEP 2: Does the patient need extra time in social situations, OR does s/he interact with staff, other patien ts, and family members ONLY in structured environments, OR does s/he require medication for social in teraction? No. SOCIAL INTERACTION - SCORE: 7-IND PROBLEM SOLVING: PROBLEM SOLVING - STEP 1: Does the patient need help to solve complex problems such as managing a checking account or confronti ng interpersonal problems? No. PROBLEM SOLVING - STEP 2: Does the patient require extra time to make decisions or solve problems, OR does s/he have slight dif ficulty reading, initiating, or self-correcting in unfamiliar situations? No. PROBLEM SOLVING - SCORE: 7-IND MEMORY: MEMORY - STEP 1: Does the patient need help to remember frequently encountered people, daily routines, and executing r equests? No. MEMORY - STEP 2: Does the patient have slight difficulty recognizing frequently encountered people, daily routines, or executing requests without the need for repetition or using self-initiated or environmental cues to remember? No. MEMORY - SCORE: 7-IND SIGNATURE PANEL: The following modified sections: Eating - Score, Grooming - Score, Bathing - Score, Dressing - Upper Body - Score, Dressing - Lower Body - Score, Toileting - Score, Transfers: Bed, Chair, Wheelchair - S core, Transfers: Toilet - Score, Transfers: Tub - Score, Transfers: Shower - Score, Comprehension - S core, Expression - Score, Social Interaction - Score, Problem Solving - Score, Memory - Score were [e lectronically] signed by Kristi Gregg OT on SatMar 05 2018 18:20:42 [facility]-0500 ([place] [facility])
[2018-03-05] MEDS: ATORVASTATIN 10 MG TAB PO SCH (20:01)
[2018-03-05] MEDS: DOCUSATE NA/SENNA CONC 1 TAB PO SCH (20:02)
--- NOTE | 2018-03-06 05:02 | FAST ---
SHIFT START DATE/TIME: 03/05/2018 19:00 (CDT) SHIFT END DATE/TIME: 03/06/2018 07:00 (CDT) NAME ANABELA VALDEZ DATE OF : 1955 DATE OF ADMISSION: 03/04/2018 16:50 (CDT) PHONE: AGE: 63 [facility]# [id number] GENDER: Male ENCOUNTER PHYSICIAN: Dr. Thiago Hamilton M.D. ADMISSION DIAGNOSIS: - Orthopaedic Disorders 08 - Unilateral Hip Fracture (08.11) proximal right femur fx. EATING: EATING - STEP 1: Does the patient require assistance when eating? Yes. EATING - STEP 2: Does the patient require the assistance of a helper? Yes. EATING - STEP 3: Does the patient perform half or more of the eating tasks? Yes. EATING - STEP 4: Does the patient need only supervision, cuing, coaxing OR help to apply an orthosis OR help to cut fo od, open containers, pour liquids, or butter bread? Yes. EATING - SCORE: 5-SUP GROOMING: Wash, rinse, and dry face Wash, rinse, and dry hands GROOMING - STEP 1: Does the patient require assistance when grooming? Yes. GROOMING - STEP 2: Does the patient require the assistance of a helper? Yes. GROOMING - STEP 3: How much assistance does the patient require from the helper? Steadying assistance from the helper GROOMING - SCORE: 4-MIN BATHING: Activity did not occur on this shift BATHING - SCORE: 0-UNK DRESSING - UPPER BODY: Patient is not dressing in public clothing ARTICLES SCORE Total number of steps: 0 DRESSING - UPPER BODY - SCORE: 0-UNK DRESSING - LOWER BODY: Patient is not dressing in public clothing ARTICLES SCORE Total number of steps: 0 DRESSING - LOWER BODY - SCORE: 0-UNK TOILETING: TOILETING - STEP 1: Does the patient require assistance with toileting? Yes. TOILETING - STEP 2: Does the patient require the assistance of a helper? Yes. TOILETING - STEP 3: How much assistance does the patient require from the helper? Only supervision TOILETING - SCORE: 5-SUP BLADDER MANAGEMENT: BLADDER MANAGEMENT - STEP 1: Does the patient control the bladder completely and intentionally without equipment or devices or med ications, and is always continent? No. BLADDER MANAGEMENT - STEP 2: Does the patient require the assistance of a helper? Yes. BLADDER MANAGEMENT - STEP 3: How much assistance does the patient require from the helper? Patient requires contact assistance fro m the helper BLADDER MANAGEMENT - STEP 4: How much contact assistance does the patient require from the helper? Patient requires minimal assist ance to maintain an external device - by positioning, and the patient performs 75% or more of bladder management tasks, while the helper provides less than 25% of the assistance to position patient on / off bedpan BLADDER MANAGEMENT - SCORE: 4-MIN BLADDER MANAGEMENT - FREQUENCY OF ACCIDENTS: BLADDER MANAGEMENT(FA) - STEP 1: How many accidents has the patient had during the current shift? 1 BOWEL MANAGEMENT: Activity did not occur on this shift BOWEL MANAGEMENT - SCORE: 7-IND TRANSFERS: BED, CHAIR, WHEELCHAIR: TRANSFERS: BED, CHAIR, WHEELCHAIR - STEP 1: Does the patient require assistance with bed, chair, or wheelchair transfers? Yes. TRANSFERS: BED, CHAIR, WHEELCHAIR - STEP 2: Does the patient require the assistance of a helper? Yes. TRANSFERS: BED, CHAIR, WHEELCHAIR - STEP 3: How much assistance does the patient require from the helper? Steadying/guiding assistance TRANSFERS: BED, CHAIR, WHEELCHAIR - SCORE: 4-MIN TRANSFERS: TOILET: TRANSFERS: TOILET - STEP 1: Does the patient require assistance with toilet transfers? Yes. TRANSFERS: TOILET - STEP 2: Does the patient require the assistance of a helper? Yes. TRANSFERS: TOILET - STEP 3: How much assistance does the patient require from the helper? Only supervision, cuing, coaxing, OR he lp to set out transfer equipment or to lock brakes and/or lift foot rests TRANSFERS: TOILET - SCORE: 5-SUP TRANSFERS: SHOWER: Activity did not occur on this shift TRANSFERS: SHOWER - SCORE: 0-UNK TRANSFERS: TUB: Activity did not occur on this shift TRANSFERS: TUB - SCORE: 0-UNK LOCOMOTION: WALK: Activity did not occur on this shift LOCOMOTION: WALK - SCORE: 0-UNK LOCOMOTION: WHEELCHAIR: Activity did not occur on this shift LOCOMOTION: WHEELCHAIR - SCORE: 0-UNK COMPREHENSION: COMPREHENSION: TYPE: Both COMPREHENSION - STEP 1: Does the patient require help to understand complex and abstract ideas (such as current events, finan roni, discharge planning, medical issues, relationships, etc)? No. COMPREHENSION - STEP 2: Does the patient need extra time, require an assistive device (such as glasses, hearing aids, or an a ugmentative communication system), OR does s/he have mild difficulty expressing complex and abstract ideas (including mild dysarthria or mild word-finding problems)? Yes. COMPREHENSION - SCORE: 6-MARISSA EXPRESSION EXPRESSION: TYPE: Both EXPRESSION - STEP 1: Does the patient require help expressing complex and abstract ideas (such as current events, finances , discharge planning, medical issues, relationships, etc)? No. EXPRESSION - STEP 2: Does the patient need extra time, require an assistive device (such as augmentive communication syste m or a communication board), OR does s/he have mild difficulty expressing complex and abstract ideas (including mild dysarthria or mild word-find problems)? Yes. EXPRESSION - SCORE: 6-MARISSA SOCIAL INTERACTION: SOCIAL INTERACTION - STEP 1: Does the patient require a helper to interact with others in social and therapeutic situations? No. SOCIAL INTERACTION - STEP 2: Does the patient need extra time in social situations, OR does s/he interact with staff, other patien ts, and family members ONLY in structured environments, OR does s/he require medication for social in teraction? Yes, patient needs extra time SOCIAL INTERACTION - SCORE: 6-MARISSA PROBLEM SOLVING: PROBLEM SOLVING - STEP 1: Does the patient need help to solve complex problems such as managing a checking account or confronti ng interpersonal problems? No. PROBLEM SOLVING - STEP 2: Does the patient require extra time to make decisions or solve problems, OR does s/he have slight dif ficulty reading, initiating, or self-correcting in unfamiliar situations? Yes, patient needs extra ti me. PROBLEM SOLVING - SCORE: 6-MARISSA MEMORY: MEMORY - STEP 1: Does the patient need help to remember frequently encountered people, daily routines, and executing r equests? No. MEMORY - STEP 2: Does the patient have slight difficulty recognizing frequently encountered people, daily routines, or executing requests without the need for repetition or using self-initiated or environmental cues to remember? Yes. MEMORY - SCORE: 6-MARISSA SIGNATURE PANEL: The following modified sections: Eating - Score, Grooming - Score, Bathing - Score, Dressing - Upper Body - Score, Dressing - Lower Body - Score, Toileting - Score, Bladder Management - Score, Bowel Man agement - Score, Transfers: Bed, Chair, Wheelchair - Score, Transfers: Toilet - Score, Transfers: Sonya wer - Score, Transfers: Tub - Score, Locomotion: Walk - Score, Locomotion: Wheelchair - Score, Compre hension - Score, Expression - Score, Social Interaction - Score, Problem Solving - Score, Memory - Sc ore were [electronically] signed by Lizbeth Greene C.N.AShelia on SatMar 06 2018 04:04:19 GMT-0500 ( Central Daylight Time)
[2018-03-06] MEDS: HYDROCODONE/APAP 10/325 TAB PO PRN ×5 (06:15→23:57)
[2018-03-06 06:22] LABS: Absolute Lymphocytes (CBC) 1.8 K/uL (0.7-4.9); Absolute Monocytes 1.1 K/uL (0.1-1.3); Absolute Neutrophil 4.2 K/uL (1.8-8.0); Lymphocytes % 22.7 % (15.3-44.8); MCH 32.6 pg (27.0-35.0); MPV 7.3 fL (7.6-11.3); Monocytes % 13.8 % (3.3-12.3)
[2018-03-06] MEDS: NICOTINE 21 MG/PAT TD SCH (07:34)
[2018-03-06] MEDS: ENOXAPARIN 40 MG/0.4 ML SQ SCH (07:35)
[2018-03-06 08:08] LABS: Albumin 2.7 g/dL (3.2-5.5); BUN Blood Urea Nitrogen 10 mg/dL (6-20); Bicarbonate 27 mEq/L (21-31); Glucose Level 109 mg/dL (65-120); Potassium 4.5 mEq/L (3.6-5.0); Sodium Level 138 mEq/L (135-145)
[2018-03-06] MEDS: AMLODIPINE 10 MG TAB PO SCH (08:35)
[2018-03-06] MEDS: hydroCHLOROthiazide 12.5 MG CAP PO SCH (08:36)
[2018-03-06] MEDS: PREGABALIN 75 MG CAP PO SCH (08:40)
[2018-03-06] MEDS ORDERED: PREGABALIN 75 MG CAP PO PRN (09:22)
--- NOTE | 2018-03-06 15:24 | FAST ---
ENCOUNTER DATE AND TIME: 03/06/2018 08:00 (CDT) NAME ANABELA VALDEZ DATE OF : 1955 DATE OF ADMISSION: 03/04/2018 16:50 (CDT) PHONE: AGE: 63 N# [id number] GENDER: Male ENCOUNTER PHYSICIAN: Dr. Thiago Hamilton M.D. ADMISSION DIAGNOSIS: - Orthopaedic Disorders 08 - Unilateral Hip Fracture (08.11) proximal right femur fx. EATING: Activity did not occur on this shift EATING - SCORE: 0-UNK GROOMING: Activity did not occur on this shift GROOMING - SCORE: 0-UNK BATHING: Activity did not occur on this shift BATHING - SCORE: 0-UNK DRESSING - UPPER BODY: Activity did not occur on this shift Patient is not dressing in public clothing ARTICLES SCORE Total number of steps: 0 DRESSING - UPPER BODY - SCORE: 0-UNK DRESSING - LOWER BODY: Activity did not occur on this shift Patient is not dressing in public clothing ARTICLES SCORE Total number of steps: 0 DRESSING - LOWER BODY - SCORE: 0-UNK TOILETING: Activity did not occur on this shift TOILETING - SCORE: 0-UNK BLADDER MANAGEMENT: Activity did not occur on this shift BLADDER MANAGEMENT - SCORE: 7-IND BOWEL MANAGEMENT: Activity did not occur on this shift BOWEL MANAGEMENT - SCORE: 7-IND TRANSFERS: BED, CHAIR, WHEELCHAIR: TRANSFERS: BED, CHAIR, WHEELCHAIR - STEP 1: Does the patient require assistance with bed, chair, or wheelchair transfers? Yes. TRANSFERS: BED, CHAIR, WHEELCHAIR - STEP 2: Does the patient require the assistance of a helper? Yes. TRANSFERS: BED, CHAIR, WHEELCHAIR - STEP 3: How much assistance does the patient require from the helper? Only supervision TRANSFERS: BED, CHAIR, WHEELCHAIR - SCORE: 5-SUP TRANSFERS: TOILET: TRANSFERS: TOILET - STEP 1: Does the patient require assistance with toilet transfers? Yes. TRANSFERS: TOILET - STEP 2: Does the patient require the assistance of a helper? Yes. TRANSFERS: TOILET - STEP 3: How much assistance does the patient require from the helper? Only supervision, cuing, coaxing, OR he lp to set out transfer equipment or to lock brakes and/or lift foot rests TRANSFERS: TOILET - SCORE: 5-SUP TRANSFERS: SHOWER: Activity did not occur on this shift TRANSFERS: SHOWER - SCORE: 0-UNK TRANSFERS: TUB: Activity did not occur on this shift TRANSFERS: TUB - SCORE: 0-UNK LOCOMOTION: WALK: LOCOMOTION: WALK - STEP 1: Does the patient need help to walk 150 feet? Yes. LOCOMOTION: WALK - STEP 2: How much assistance does the patient require to walk a minimum of 150 feet? Only supervision, cuing, or coaxing LOCOMOTION: WALK - SCORE: 5-SUP LOCOMOTION: WHEELCHAIR: Activity did not occur on this shift LOCOMOTION: WHEELCHAIR - SCORE: 0-UNK LOCOMOTION: STAIRS: LOCOMOTION: STAIRS - STEP 1: Does the patient need help to go up and down 12 to 14 stairs? Yes. LOCOMOTION: STAIRS - STEP 2: How much assistance does the patient need from the helper to go a minimum of 12 to 14 stairs? Only trent pervision, cuing, or coaxing LOCOMOTION: STAIRS - SCORE: 5-SUP COMPREHENSION: COMPREHENSION - SCORE: 0-UNK EXPRESSION EXPRESSION - SCORE: 0-UNK SOCIAL INTERACTION: SOCIAL INTERACTION - SCORE: 0-UNK PROBLEM SOLVING: PROBLEM SOLVING - SCORE: 0-UNK MEMORY: MEMORY - SCORE: 0-UNK SIGNATURE PANEL: The following modified sections: Transfers: Bed, Chair, Wheelchair - Score, Transfers: Toilet - Score , Locomotion: Walk - Score, Locomotion: Wheelchair - Score, Locomotion: Stairs - Score were [electron ically] signed by Andrea Avendano PT on SatMar 06 2018 14:25:48 T-0500 (Central Daylight Time)
--- NOTE | 2018-03-06 15:54 | FAST ---
SHIFT START DATE/TIME: 03/06/2018 07:00 (CDT) SHIFT END DATE/TIME: 03/06/2018 19:00 (CDT) NAME ANABELA VALDEZ DATE OF : 1955 DATE OF ADMISSION: 03/04/2018 16:50 (CDT) PHONE: AGE: 63 [facility]# [id number] GENDER: Male ENCOUNTER PHYSICIAN: Dr. Thiago Hamilton M.D. ADMISSION DIAGNOSIS: - Orthopaedic Disorders 08 - Unilateral Hip Fracture (08.11) proximal right femur fx. EATING: EATING - STEP 1: Does the patient require assistance when eating? Yes. EATING - STEP 2: Does the patient require the assistance of a helper? No, patient only requires an assistive device, O R s/he takes more than reasonable time to eat, OR there is a safety concern, OR s/he requires modifie d food consistency EATING - SCORE: 6-MARISSA GROOMING: Comb/brush hair Oral care Wash, rinse, and dry face Wash, rinse, and dry hands GROOMING - STEP 1: Does the patient require assistance when grooming? Yes. GROOMING - STEP 2: Does the patient require the assistance of a helper? No. The patient only requires an assistive devic e, OR takes more than reasonable time to groom, OR there is a concern for safety as the patient groom s GROOMING - SCORE: 6-MARISSA BATHING: Activity did not occur on this shift BATHING - SCORE: 0-UNK DRESSING - UPPER BODY: T-shirt/pullover shirt (four steps) ARTICLES SCORE Total number of steps: 4 DRESSING - UPPER BODY - STEP 1: Does the patient require help when dressing above the waist? Yes. DRESSING - UPPER BODY - STEP 2: Does the patient require the assistance of a helper? Yes. DRESSING - UPPER BODY - STEP 3: Does the helper touch the patient while dressing? No. DRESSING - UPPER BODY - SCORE: 5-SUP DRESSING - LOWER BODY: Elastic waist pants (three steps) ARTICLES SCORE Total number of steps: 3 DRESSING - LOWER BODY - STEP 1: Does the patient require help when dressing below the waist? Yes. DRESSING - LOWER BODY - STEP 2: Does the patient require the assistance of a helper? Yes. DRESSING - LOWER BODY - STEP 3: Does the helper touch the patient while dressing? No. DRESSING - LOWER BODY - SCORE: 5-SUP TOILETING: TOILETING - STEP 1: Does the patient require assistance with toileting? Yes. TOILETING - STEP 2: Does the patient require the assistance of a helper? Yes. TOILETING - STEP 3: How much assistance does the patient require from the helper? Only supervision TOILETING - SCORE: 5-SUP BLADDER MANAGEMENT: BLADDER MANAGEMENT - STEP 1: Does the patient control the bladder completely and intentionally without equipment or devices or med ications, and is always continent? No. BLADDER MANAGEMENT - STEP 2: Does the patient require the assistance of a helper? No, patient requires and independently uses an a ssistive device, such as a urinal, bedpan, bedside commode, catheter, absorbent pad, or collecting de vice BLADDER MANAGEMENT - SCORE: 6-MARISSA BOWEL MANAGEMENT: Activity did not occur on this shift BOWEL MANAGEMENT - SCORE: 7-IND TRANSFERS: BED, CHAIR, WHEELCHAIR: TRANSFERS: BED, CHAIR, WHEELCHAIR - STEP 1: Does the patient require assistance with bed, chair, or wheelchair transfers? Yes. TRANSFERS: BED, CHAIR, WHEELCHAIR - STEP 2: Does the patient require the assistance of a helper? Yes. TRANSFERS: BED, CHAIR, WHEELCHAIR - STEP 3: How much assistance does the patient require from the helper? Steadying/guiding assistance TRANSFERS: BED, CHAIR, WHEELCHAIR - SCORE: 4-MIN TRANSFERS: TOILET: TRANSFERS: TOILET - STEP 1: Does the patient require assistance with toilet transfers? Yes. TRANSFERS: TOILET - STEP 2: Does the patient require the assistance of a helper? Yes. TRANSFERS: TOILET - STEP 3: How much assistance does the patient require from the helper? Only supervision, cuing, coaxing, OR he lp to set out transfer equipment or to lock brakes and/or lift foot rests TRANSFERS: TOILET - SCORE: 5-SUP TRANSFERS: SHOWER: Activity did not occur on this shift TRANSFERS: SHOWER - SCORE: 0-UNK TRANSFERS: TUB: Activity did not occur on this shift TRANSFERS: TUB - SCORE: 0-UNK LOCOMOTION: WALK: Activity did not occur on this shift LOCOMOTION: WALK - SCORE: 0-UNK LOCOMOTION: WHEELCHAIR: Activity did not occur on this shift LOCOMOTION: WHEELCHAIR - SCORE: 0-UNK COMPREHENSION: COMPREHENSION - SCORE: 0-UNK EXPRESSION EXPRESSION - SCORE: 0-UNK SOCIAL INTERACTION: SOCIAL INTERACTION - SCORE: 0-UNK PROBLEM SOLVING: PROBLEM SOLVING - SCORE: 0-UNK MEMORY: MEMORY - SCORE: 0-UNK SIGNATURE PANEL: The following modified sections: Eating - Score, Grooming - Score, Bathing - Score, Dressing - Upper Body - Score, Dressing - Lower Body - Score, Toileting - Score, Bladder Management - Score, Bowel Man agement - Score, Transfers: Bed, Chair, Wheelchair - Score, Transfers: Toilet - Score, Transfers: Sonya wer - Score, Transfers: Tub - Score, Locomotion: Walk - Score, Locomotion: Wheelchair - Score, Compre hension - Score, Expression - Score, Social Interaction - Score, Problem Solving - Score, Memory - Sc ore were [electronically] signed by Julian Torres on SatMar 06 2018 14:56:23 GMT-0500 (Central Daylight Time)
--- NOTE | 2018-03-06 15:59 | FAST ---
ENCOUNTER DATE AND TIME: 03/06/2018 08:00 (CDT) NAME ANABELA VALDEZ DATE OF : 1955 DATE OF ADMISSION: 03/04/2018 16:50 (CDT) PHONE: AGE: 63 N# [id number] GENDER: Male ENCOUNTER PHYSICIAN: Dr. Thiago Hamilton M.D. ADMISSION DIAGNOSIS: - Orthopaedic Disorders 08 - Unilateral Hip Fracture (08.11) proximal right femur fx. EATING: Activity did not occur on this shift EATING - SCORE: 0-UNK GROOMING: Wash, rinse, and dry hands GROOMING - STEP 1: Does the patient require assistance when grooming? No. GROOMING - SCORE: 7-IND BATHING: Activity did not occur on this shift BATHING - SCORE: 0-UNK DRESSING - UPPER BODY: Activity did not occur on this shift ARTICLES SCORE Total number of steps: 0 DRESSING - UPPER BODY - SCORE: 0-UNK DRESSING - LOWER BODY: Activity did not occur on this shift ARTICLES SCORE Total number of steps: 0 DRESSING - LOWER BODY - SCORE: 0-UNK TOILETING: TOILETING - STEP 1: Does the patient require assistance with toileting? Yes. TOILETING - STEP 2: Does the patient require the assistance of a helper? Yes. TOILETING - STEP 3: How much assistance does the patient require from the helper? Only supervision TOILETING - SCORE: 5-SUP BLADDER MANAGEMENT: Activity did not occur on this shift BLADDER MANAGEMENT - SCORE: 7-IND BOWEL MANAGEMENT: Activity did not occur on this shift BOWEL MANAGEMENT - SCORE: 7-IND TRANSFERS: BED, CHAIR, WHEELCHAIR: Activity did not occur on this shift TRANSFERS: BED, CHAIR, WHEELCHAIR - SCORE: 0-UNK TRANSFERS: TOILET: TRANSFERS: TOILET - STEP 1: Does the patient require assistance with toilet transfers? Yes. TRANSFERS: TOILET - STEP 2: Does the patient require the assistance of a helper? Yes. TRANSFERS: TOILET - STEP 3: How much assistance does the patient require from the helper? Only supervision, cuing, coaxing, OR he lp to set out transfer equipment or to lock brakes and/or lift foot rests TRANSFERS: TOILET - SCORE: 5-SUP TRANSFERS: SHOWER: Activity did not occur on this shift TRANSFERS: SHOWER - SCORE: 0-UNK TRANSFERS: TUB: Activity did not occur on this shift TRANSFERS: TUB - SCORE: 0-UNK LOCOMOTION: WALK: Activity did not occur on this shift LOCOMOTION: WALK - SCORE: 0-UNK LOCOMOTION: WHEELCHAIR: Activity did not occur on this shift LOCOMOTION: WHEELCHAIR - SCORE: 0-UNK LOCOMOTION: STAIRS: Activity did not occur on this shift LOCOMOTION: STAIRS - SCORE: 0-UNK COMPREHENSION: COMPREHENSION - STEP 1: Does the patient require help to understand complex and abstract ideas (such as current events, finan roni, discharge planning, medical issues, relationships, etc)? No. COMPREHENSION - STEP 2: Does the patient need extra time, require an assistive device (such as glasses, hearing aids, or an a ugmentative communication system), OR does s/he have mild difficulty expressing complex and abstract ideas (including mild dysarthria or mild word-finding problems)? No. COMPREHENSION - SCORE: 7-IND EXPRESSION EXPRESSION: TYPE: Non-Vocal EXPRESSION - STEP 1: Does the patient require help expressing complex and abstract ideas (such as current events, finances , discharge planning, medical issues, relationships, etc)? No. EXPRESSION - STEP 2: Does the patient need extra time, require an assistive device (such as augmentive communication syste m or a communication board), OR does s/he have mild difficulty expressing complex and abstract ideas (including mild dysarthria or mild word-find problems)? No. EXPRESSION - SCORE: 7-IND SOCIAL INTERACTION: SOCIAL INTERACTION - STEP 1: Does the patient require a helper to interact with others in social and therapeutic situations? No. SOCIAL INTERACTION - STEP 2: Does the patient need extra time in social situations, OR does s/he interact with staff, other patien ts, and family members ONLY in structured environments, OR does s/he require medication for social in teraction? No. SOCIAL INTERACTION - SCORE: 7-IND PROBLEM SOLVING: PROBLEM SOLVING - STEP 1: Does the patient need help to solve complex problems such as managing a checking account or confronti ng interpersonal problems? No. PROBLEM SOLVING - STEP 2: Does the patient require extra time to make decisions or solve problems, OR does s/he have slight dif ficulty reading, initiating, or self-correcting in unfamiliar situations? No. PROBLEM SOLVING - SCORE: 7-IND MEMORY: MEMORY - STEP 1: Does the patient need help to remember frequently encountered people, daily routines, and executing r equests? No. MEMORY - STEP 2: Does the patient have slight difficulty recognizing frequently encountered people, daily routines, or executing requests without the need for repetition or using self-initiated or environmental cues to remember? No. MEMORY - SCORE: 7-IND SIGNATURE PANEL: The following modified sections: Eating - Score, Grooming - Score, Bathing - Score, Dressing - Upper Body - Score, Dressing - Lower Body - Score, Toileting - Score, Transfers: Bed, Chair, Wheelchair - S core, Transfers: Toilet - Score, Transfers: Shower - Score, Transfers: Tub - Score, Comprehension - S core, Expression - Score, Social Interaction - Score, Problem Solving - Score, Memory - Score were [e lectronically] signed by NADYA Bucio on SatMar 06 2018 15:00:53 T-0500 ([facility] Time)
[2018-03-06 18:14] LABS: Prealbumin 12.7 mg/dl (18-38)
--- NOTE | 2018-03-06 19:39 | R.PN ---
ENCOUNTER DATE AND TIME: 03/06/2018 18:38 (CDT) NAME ANABELA VALDEZ DATE OF : 1955 DATE OF ADMISSION: 03/04/2018 16:50 (CDT) proximal right femur fxCHIEF COMPLAINT: Right hip fracture SUBJECTIVE: Pt denied any Shortness of Breath. Pt denied any depression. Ambulated 1500' with standby assistance using a rolling walker. Up and down 15 steps with standby as sistance. VITAL SIGNS Temperature: 97.0 F SBP/DBP: 118/68 Pulse: 89 Resp: 16 Vital signs stable, afebrile MEDICATION ALLERGIES: No Known Drug Allergies (NKDA) ENVIRONMENTAL ALLERGIES: - Substance Allergies None Known - Other Allergies None Known NURSING: - Shower allowing shower - Skin care per protocol PRECAUTIONS: - Posterior Hip Precaution No adduction across midline No external rotation No hip flexion >90 degrees No internal rotation No wheel chair propulsion - Weight Bearing Precaution WBAT right LE ACTIVITIES OOB only with supervision THERAPIES: - Occupational Therapy Evaluate and Treat. - Physical Therapy Evaluate and Treat. PHYSICAL EXAM - Gen Alert and awake Lying in bed No apparent distress Oriented to: person, time, and place - Vital Signs Vital signs stable, afebrile - Skin RLE incisions intact No abnormalities - Eyes No abnormalities - ENMT No abnormalities - Neck No abnormalities - CVS RRR - Chest Clear - Abd +bowel sounds - GI Soft No abnormalities - No abnormalities - Ext Right hip surgical site has good hemostasis. - MSK No weakenss in the extremities. - Neuro No focal neurological deficits. - Psych No abnormalities ASSESSMENT: Pt. is a 63 yo Right-handed white male.On 02/26/2018 he was admitted to [facility] and underwent emergency surgery for proximal right femur fx (right hip hemiarthroplasty) by Britta Muhammad.Pre-morbidly, Pt. was independent/mod-I in Self-Care, Sphincter Control, Transfers Control, Communication, Social Cognition, and Locomotion; and he had good Sphincter Control.Currently, he has deficits of Transfers Control, Social Cognition, Endurance, Balance, Safety Awareness, Locomotion, a nd Self-Care.Pt. is now referred to [facility] for acute in-patient rehabilita tion in order to maximize patient's functional independence in activities of daily living, strength, ROM, and mobility.- Rehab Goal Patient has realistic goal of being discharged at assistance level 6-Cat to reside at Home with Fam rama/Relatives. MDM/PLAN: - Anterior Hip Precaution No abduction No active extension No adduction across midline No external rotation No hip flexion >90 degrees No internal rotation - Physical Therapy Decreased range of motion - to improve, our physical therapists will perform initial evaluation of p t's status upon admission and devise an individualized program for increasing patient's Range of Jose on. Gait dysfunction - to improve, our physical therapists will perform initial evaluation of pt's statu s upon admission and devise an individualized program for Gait Training, and Wheel Chair mobility Inability to transfer - to improve, our physical therapists will perform initial evaluation of pt's status upon admission and devise an individualized program for Bed mobility Need for home safety evaluation - to improve, our physical therapists will perform initial evaluatio n of pt's status upon admission and devise an individualized program for Home Evaluation Need in caregiver upon discharge - to improve, our physical therapists will perform initial evaluati on of pt's status upon admission and devise an individualized program for Caregiver Training New precaution - to improve, our physical therapists will perform initial evaluation of pt's status upon admission and devise an individualized program for Patient precaution education Poor balance - to improve, our physical therapists will perform initial evaluation of pt's status up on admission and devise an individualized program for Balance Training Poor endurance - to improve, our physical therapists will perform initial evaluation of pt's status upon admission and devise an individualized program for Endurance Training Weakness - to improve, our physical therapists will perform initial evaluation of pt's status upon a dmission and devise an individualized program for Aquatic Therapy, Neuromuscular Reeducation, and Str engthening Achieving independence - to improve, our physical therapists will perform initial evaluation of pt's status upon admission and devise an individualized program for Community Reintegration Activities - Diet - Liquid Texture Continue Regular - Tube Feed Continue N/A - Diet Type Continue Regular - Posterior Hip Precaution No adduction across midline No external rotation No hip flexion >90 degrees No internal rotation No wheel chair propulsion - Occupational Therapy ADL deficits - to improve, our occupation therapists will perform initial evaluation of pt's status upon admission and devise an individualized program for Bathing, Bed mobility, Community Reintegratio n, Cooking, Dressing, Eating, Fine Motor Skills, Grooming, Homemaking, Kitchen Mobility, Laundry, Pat ient Education, Safety Awareness, Splinting - Positioning, Transfers(Toilet, Tub, Shower), and Wheel Chair Management Cognitive deficits - to improve, our occupation therapists will perform initial evaluation of pt's s tatus upon admission and devise an individualized program for Cognition - orientation Need for primary care coordinator - to improve, our occupation therapists will perform initial evaluation of pt's status upon admission and devise an individualized program for Caregiver Training Weakness - to improve, our occupation therapists will perform initial evaluation of pt's status upon admission and devise an individualized program for Aquatic Therapy, Balance, Endurance, UE ROM, and UE strengthening - Weight Bearing Precaution WBAT right LE - Skin care per protocol - Diet - Solid Texture Continue Regular - Shower allowing shower FUNCTIONAL STATUS: UPDATED AT WEEKLY TEAM CONFERENCE - Bladder Same accident frequency: 7-Ind - No accidents in the past 7 days - Bowel Same accident frequency: 7-Ind - No accidents in the past 7 days - Walking Same score based on distance walked: 0(N/A) FUNCTIONAL STATUS: - Self-Care A. Eating Ind B. Grooming Ind C. Bathing Liv D. Dressing - Upper Ind E. Dressing - Lower modA F. Toileting Liv - Sphincter Control G: Bladder control Ind H: Bowel control Ind - Transfers Control I. Bed/Chair/Wheelchair modA J. Toilet modA K. Tub/Shower ADNO - Locomotion L. Walk/Wheelchair (B) Dep M. Stairs ADNO - Communication N. Comprehension (B) Ind O. Expression (B) Ind - Social Cognition P. Social Interaction sup Q. Problem Solving Ind R. Memory Ind - Endurance Poor - Balance Poor - Safety Awareness Fair CURRENT FUNC. DEFICITS: Transfers Control, Social Cognition, Endurance, Balance, Safety Awareness, Locomotion, and Self-Care SIGNATURE PANEL: (CDT)
[2018-03-06] MEDS: DOCUSATE NA/SENNA CONC 1 TAB PO SCH (20:10)
[2018-03-06] MEDS: ATORVASTATIN 10 MG TAB PO SCH (20:10)
--- NOTE | 2018-03-07 04:27 | FAST ---
SHIFT START DATE/TIME: 03/06/2018 19:00 (CDT) SHIFT END DATE/TIME: 03/07/2018 07:00 (CDT) NAME ANABELA VALDEZ DATE OF : 1955 DATE OF ADMISSION: 03/04/2018 16:50 (CDT) PHONE: AGE: 63 [id number] GENDER: Male ENCOUNTER PHYSICIAN: Dr. Thiago Hamilton M.D. ADMISSION DIAGNOSIS: - Orthopaedic Disorders 08 - Unilateral Hip Fracture (08.11) proximal right femur fx. EATING: EATING - STEP 1: Does the patient require assistance when eating? Yes. EATING - STEP 2: Does the patient require the assistance of a helper? No, patient only requires an assistive device, O R s/he takes more than reasonable time to eat, OR there is a safety concern, OR s/he requires modifie d food consistency EATING - SCORE: 6-MARISSA GROOMING: Oral care Wash, rinse, and dry face Wash, rinse, and dry hands GROOMING - STEP 1: Does the patient require assistance when grooming? Yes. GROOMING - STEP 2: Does the patient require the assistance of a helper? No. The patient only requires an assistive devic e, OR takes more than reasonable time to groom, OR there is a concern for safety as the patient groom s GROOMING - SCORE: 6-MARISSA BATHING: Activity did not occur on this shift BATHING - SCORE: 0-UNK DRESSING - UPPER BODY: Patient is not dressing in public clothing ARTICLES SCORE Total number of steps: 0 DRESSING - UPPER BODY - SCORE: 0-UNK DRESSING - LOWER BODY: Patient is not dressing in public clothing ARTICLES SCORE Total number of steps: 0 DRESSING - LOWER BODY - SCORE: 0-UNK TOILETING: TOILETING - STEP 1: Does the patient require assistance with toileting? Yes. TOILETING - STEP 2: Does the patient require the assistance of a helper? No. TOILETING - SCORE: 6-MARISSA BLADDER MANAGEMENT: BLADDER MANAGEMENT - STEP 1: Does the patient control the bladder completely and intentionally without equipment or devices or med ications, and is always continent? No. BLADDER MANAGEMENT - STEP 2: Does the patient require the assistance of a helper? Yes. BLADDER MANAGEMENT - STEP 3: How much assistance does the patient require from the helper? Only supervision, stand-by, cuing, or c oaxing BLADDER MANAGEMENT - SCORE: 5-SUP BLADDER MANAGEMENT - FREQUENCY OF ACCIDENTS: BLADDER MANAGEMENT(FA) - STEP 1: How many accidents has the patient had during the current shift? 0 BOWEL MANAGEMENT: Activity did not occur on this shift BOWEL MANAGEMENT - SCORE: 7-IND TRANSFERS: BED, CHAIR, WHEELCHAIR: TRANSFERS: BED, CHAIR, WHEELCHAIR - STEP 1: Does the patient require assistance with bed, chair, or wheelchair transfers? Yes. TRANSFERS: BED, CHAIR, WHEELCHAIR - STEP 2: Does the patient require the assistance of a helper? No. Patient only requires an assistive device fo r bed, chair, wheelchair transfers such as a sliding board, grab bar, or brace, OR s/he takes more th an reasonable time, OR there is a safety concern when s/he performs the transfers TRANSFERS: BED, CHAIR, WHEELCHAIR - SCORE: 6-MARISSA TRANSFERS: TOILET: TRANSFERS: TOILET - STEP 1: Does the patient require assistance with toilet transfers? Yes. TRANSFERS: TOILET - STEP 2: Does the patient require the assistance of a helper? No. Patient only requires an assistive device trent ch as a grab bar or special seat, OR s/he takes more than reasonable time to perform toilet transfers , OR there is a safety concern when s/he performs toilet transfers. TRANSFERS: TOILET - SCORE: 6-MRAISSA TRANSFERS: SHOWER: Activity did not occur on this shift TRANSFERS: SHOWER - SCORE: 0-UNK TRANSFERS: TUB: Activity did not occur on this shift TRANSFERS: TUB - SCORE: 0-UNK LOCOMOTION: WALK: Activity did not occur on this shift LOCOMOTION: WALK - SCORE: 0-UNK LOCOMOTION: WHEELCHAIR: Activity did not occur on this shift LOCOMOTION: WHEELCHAIR - SCORE: 0-UNK COMPREHENSION: COMPREHENSION: TYPE: Both COMPREHENSION - STEP 1: Does the patient require help to understand complex and abstract ideas (such as current events, finan roni, discharge planning, medical issues, relationships, etc)? No. COMPREHENSION - STEP 2: Does the patient need extra time, require an assistive device (such as glasses, hearing aids, or an a ugmentative communication system), OR does s/he have mild difficulty expressing complex and abstract ideas (including mild dysarthria or mild word-finding problems)? Yes. COMPREHENSION - SCORE: 6-MARISSA EXPRESSION EXPRESSION: TYPE: Both EXPRESSION - STEP 1: Does the patient require help expressing complex and abstract ideas (such as current events, finances , discharge planning, medical issues, relationships, etc)? No. EXPRESSION - STEP 2: Does the patient need extra time, require an assistive device (such as augmentive communication syste m or a communication board), OR does s/he have mild difficulty expressing complex and abstract ideas (including mild dysarthria or mild word-find problems)? Yes. EXPRESSION - SCORE: 6-MARISSA SOCIAL INTERACTION: SOCIAL INTERACTION - STEP 1: Does the patient require a helper to interact with others in social and therapeutic situations? No. SOCIAL INTERACTION - STEP 2: Does the patient need extra time in social situations, OR does s/he interact with staff, other patien ts, and family members ONLY in structured environments, OR does s/he require medication for social in teraction? No. SOCIAL INTERACTION - SCORE: 7-IND PROBLEM SOLVING: PROBLEM SOLVING - STEP 1: Does the patient need help to solve complex problems such as managing a checking account or confronti ng interpersonal problems? No. PROBLEM SOLVING - STEP 2: Does the patient require extra time to make decisions or solve problems, OR does s/he have slight dif ficulty reading, initiating, or self-correcting in unfamiliar situations? Yes, patient needs extra ti me. PROBLEM SOLVING - SCORE: 6-MARISSA MEMORY: MEMORY - STEP 1: Does the patient need help to remember frequently encountered people, daily routines, and executing r equests? No. MEMORY - STEP 2: Does the patient have slight difficulty recognizing frequently encountered people, daily routines, or executing requests without the need for repetition or using self-initiated or environmental cues to remember? Yes. MEMORY - SCORE: 6-MARISSA SIGNATURE PANEL: The following modified sections: Eating - Score, Grooming - Score, Bathing - Score, Dressing - Upper Body - Score, Dressing - Lower Body - Score, Toileting - Score, Bladder Management - Score, Bowel Man agement - Score, Transfers: Bed, Chair, Wheelchair - Score, Transfers: Toilet - Score, Transfers: Sonya wer - Score, Transfers: Tub - Score, Locomotion: Walk - Score, Locomotion: Wheelchair - Score, Compre hension - Score, Expression - Score, Social Interaction - Score, Problem Solving - Score, Memory - Sc ore were [electronically] signed by Sriram BowlesNJazzy on SatMar 07 2018 03:29:04 T-0500 ( Central Daylight Time)
[2018-03-07] MEDS: HYDROCODONE/APAP 10/325 TAB PO PRN ×3 (05:47→20:38)
[2018-03-07] MEDS: ENOXAPARIN 40 MG/0.4 ML SQ SCH (06:50)
[2018-03-07] MEDS: NICOTINE 21 MG/PAT TD SCH (07:55)
[2018-03-07] MEDS: hydroCHLOROthiazide 12.5 MG CAP PO SCH ×2 (07:56→10:22)
[2018-03-07] MEDS: AMLODIPINE 10 MG TAB PO SCH (07:57)
--- NOTE | 2018-03-07 09:47 | P.RH.PN ---
Estimated Length of Stay: 7 Expected Discharge Date: 03/11/18 Discharge Disposition Plan: Home Family Support: Yes Vital Signs: Last Vital Signs Temp 97.6 F 03/07/18 08:00 Pulse 78 03/07/18 08:00 Resp 16 03/07/18 08:00 BP 107/47 L 03/07/18 08:00 Pulse Ox 96 03/07/18 08:00 Laboratory: Laboratory Last Values WBC 7.8 K/uL (4.3-10.9) D 03/06/18 05:58 RBC 3.10 M/uL (4.33-5.43) L 03/06/18 05:58 Hgb 10.1 g/dL (13.6-17.9) L 03/06/18 05:58 Hct 31.0 % (39.6-49.0) L 03/06/18 05:58 MCV 100.0 fL (80-100) 03/06/18 05:58 MCH 32.6 pg (27.0-35.0) 03/06/18 05:58 MCHC 32.5 g/dL (32.0-36.0) 03/06/18 05:58 RDW 14.3 % (12.1-15.2) 03/06/18 05:58 Plt Count 381 K/uL (152-406) 03/06/18 05:58 MPV 7.3 fL (7.6-11.3) L 03/06/18 05:58 Neutrophils % 53.5 % (41.7-73.7) 03/06/18 05:58 Lymphocytes % 22.7 % (15.3-44.8) 03/06/18 05:58 Monocytes % 13.8 % (3.3-12.3) H 03/06/18 05:58 Eosinophils % 9.0 % (0-4.4) H 03/06/18 05:58 Basophils % 1.0 % (0-1.3) 03/06/18 05:58 Absolute Neutrophils 4.2 K/uL (1.8-8.0) 03/06/18 05:58 Absolute Lymphocytes 1.8 K/uL (0.7-4.9) 03/06/18 05:58 Absolute Monocytes 1.1 K/uL (0.1-1.3) 03/06/18 05:58 Absolute Eosinophils 0.7 K/uL (0-0.5) H 03/06/18 05:58 Absolute Basophils 0.1 K/uL (0-0.5) 03/06/18 05:58 Morphology Comment Not seen (NOT SEEN) 03/05/18 05:53 Sodium 138 mEq/L (135-145) 03/06/18 05:58 Potassium 4.5 mEq/L (3.6-5.0) 03/06/18 05:58 Chloride 104 mEq/L (101-111) 03/06/18 05:58 Carbon Dioxide 27 mEq/L (21-31) 03/06/18 05:58 BUN 10 mg/dL (6-20) 03/06/18 05:58 Creatinine 0.90 mg/dL (0.61-1.24) 03/06/18 05:58 Estimated GFR > 90 mL/min (=/>90) 03/06/18 05:58 Glucose 109 mg/dL (65-120) 03/06/18 05:58 Calcium 8.9 mg/dL (8.5-10.5) 03/06/18 05:58 Magnesium 2.0 mg/dL (1.8-2.5) 03/05/18 05:53 Albumin 2.7 g/dL (3.2-5.5) L 03/06/18 05:58 Prealbumin 12.7 mg/dl (18-38) L 03/06/18 05:58 Urine Color Yellow 03/04/18 17:00 Urine Appearance Clear 03/04/18 17:00 Urine pH 7.5 (5.0-7.0) H 03/04/18 17:00 Ur Specific [place] <=1.005 (1.005-1.030) 03/04/18 17:00 Urine Ketones Negative (NEG) 03/04/18 17:00 Urine Blood Negative (NEG) 03/04/18 17:00 Urine Nitrite Negative (NEG) 03/04/18 17:00 Urine Bilirubin Negative (NEG) 03/04/18 17:00 Urine Urobilinogen 0.2 mg/dL (0.2-1.0) 03/04/18 17:00 Ur Leukocyte Esterase Negative (NEG) 03/04/18 17:00 Urine RBC <5 /HPF (NONE SEEN) 03/04/18 17:00 Urine WBC <5 /HPF (<5) 03/04/18 17:00 Ur Squamous Epith Cells <5 /HPF (NONE SEEN) 03/04/18 17:00 Urine Bacteria <20 /HPF (NONE SEEN) 03/04/18 17:00 Urine Culture Reflexed Not needed 03/04/18 17:00 Urine Glucose Negative (NEG) 03/04/18 17:00 Urine Total Protein Negative (NEG) 03/04/18 17:00 Weight: 187 lb 4 oz Wound Present: Yes Closed Surgical Incision Present: Yes Negative Pressure Wound Therapy Present: No Physician Update: Hgb is stable at 10. Prealbumin has improved to 12.7. He is doing very well with physical and occupational therapy. He may be ready for d/c on Saturday. Pain Issues: on [place] Q4HP Functional Improvement: pt is participating well and demonstrating progress. pt continues to require further training to become Steve. Summary: Patient's care plan and pattern cutter goals have been reviewed and revised as necessary. Please see the Rehabilitation Signature page for all necessary signatures.
[2018-03-07] MEDS ORDERED: AMLODIPINE 10 MG TAB PO SCH (11:00)
[2018-03-07] MEDS ORDERED: PREGABALIN 50 MG CAP PO PRN (11:00)
[2018-03-07] MEDS: TRAMADOL HCL 50 MG TAB PO PRN (12:33)
--- NOTE | 2018-03-07 16:16 | FAST ---
ENCOUNTER DATE AND TIME: 03/07/2018 08:00 (CDT) NAME ANABELA VALDEZ DATE OF : 1955 DATE OF ADMISSION: 03/04/2018 16:50 (CDT) PHONE: AGE: 63 N# [id number] GENDER: Male ENCOUNTER PHYSICIAN: Dr. Thiago Hamilton M.D. ADMISSION DIAGNOSIS: - Orthopaedic Disorders 08 - Unilateral Hip Fracture (08.11) proximal right femur fx. EATING: Activity did not occur on this shift EATING - SCORE: 0-UNK GROOMING: Activity did not occur on this shift GROOMING - SCORE: 0-UNK BATHING: Activity did not occur on this shift BATHING - SCORE: 0-UNK DRESSING - UPPER BODY: Activity did not occur on this shift Patient is not dressing in public clothing ARTICLES SCORE Total number of steps: 0 DRESSING - UPPER BODY - SCORE: 0-UNK DRESSING - LOWER BODY: Activity did not occur on this shift Patient is not dressing in public clothing ARTICLES SCORE Total number of steps: 0 DRESSING - LOWER BODY - SCORE: 0-UNK TOILETING: Activity did not occur on this shift TOILETING - SCORE: 0-UNK BLADDER MANAGEMENT: Activity did not occur on this shift BLADDER MANAGEMENT - SCORE: 7-IND BOWEL MANAGEMENT: Activity did not occur on this shift BOWEL MANAGEMENT - SCORE: 7-IND TRANSFERS: BED, CHAIR, WHEELCHAIR: TRANSFERS: BED, CHAIR, WHEELCHAIR - STEP 1: Does the patient require assistance with bed, chair, or wheelchair transfers? Yes. TRANSFERS: BED, CHAIR, WHEELCHAIR - STEP 2: Does the patient require the assistance of a helper? No. Patient only requires an assistive device fo r bed, chair, wheelchair transfers such as a sliding board, grab bar, or brace, OR s/he takes more th an reasonable time, OR there is a safety concern when s/he performs the transfers TRANSFERS: BED, CHAIR, WHEELCHAIR - SCORE: 6-MARISSA TRANSFERS: TOILET: Activity did not occur on this shift TRANSFERS: TOILET - SCORE: 0-UNK TRANSFERS: SHOWER: Activity did not occur on this shift TRANSFERS: SHOWER - SCORE: 0-UNK TRANSFERS: TUB: Activity did not occur on this shift TRANSFERS: TUB - SCORE: 0-UNK LOCOMOTION: WALK: LOCOMOTION: WALK - STEP 1: Does the patient need help to walk 150 feet? No. LOCOMOTION: WALK - STEP 2: Does the patient need an assistive device (such as an orthosis, prosthesis, crutches, or walker) to g o 150 feet, OR does s/he take more than reasonable time, OR is there a concern for safety? Yes, the p atient needs an assistive device LOCOMOTION: WALK - SCORE: 6-MARISSA LOCOMOTION: WHEELCHAIR: Activity did not occur on this shift LOCOMOTION: WHEELCHAIR - SCORE: 0-UNK LOCOMOTION: STAIRS: LOCOMOTION: STAIRS - STEP 1: Does the patient need help to go up and down 12 to 14 stairs? No. LOCOMOTION: STAIRS - STEP 2: Does the patient require an assistive device - such as handrails or cane - to go up and down one flig ht of stairs, OR does s/he take more than reasonable time, OR is there a concern for safety? Yes, the patient requires an assistive device LOCOMOTION: STAIRS - SCORE: 6-MARISSA COMPREHENSION: COMPREHENSION - SCORE: 0-UNK EXPRESSION EXPRESSION - SCORE: 0-UNK SOCIAL INTERACTION: SOCIAL INTERACTION - SCORE: 0-UNK PROBLEM SOLVING: PROBLEM SOLVING - SCORE: 0-UNK MEMORY: MEMORY - SCORE: 0-UNK SIGNATURE PANEL: The following modified sections: Transfers: Bed, Chair, Wheelchair - Score, Transfers: Toilet - Score , Locomotion: Walk - Score, Locomotion: Wheelchair - Score, Locomotion: Stairs - Score were [electron shital] signed by Macho Correa PTA on SatMar 07 2018 15:17:29 T-0500 (Central Daylight Time)
--- NOTE | 2018-03-07 16:25 | FAST ---
ENCOUNTER DATE AND TIME: 03/07/2018 08:00 (CDT) NAME ANABELA VADLEZ DATE OF : 1955 DATE OF ADMISSION: 03/04/2018 16:50 (CDT) PHONE: AGE: 63 N# [id number] GENDER: Male ENCOUNTER PHYSICIAN: Dr. Thiago Hamilton M.D. ADMISSION DIAGNOSIS: - Orthopaedic Disorders 08 - Unilateral Hip Fracture (08.11) proximal right femur fx. EATING: Activity did not occur on this shift EATING - SCORE: 0-UNK GROOMING: Wash, rinse, and dry face Wash, rinse, and dry hands GROOMING - STEP 1: Does the patient require assistance when grooming? No. GROOMING - SCORE: 7-IND BATHING: Abdomen Buttocks Chest Left arm Left lower leg and foot Left upper leg Perineal area Right arm Right lower leg and foot Right upper leg BATHING - STEP 1: Does the patient require assistance when bathing? Yes. BATHING - STEP 2: Does the patient require the assistance of a helper? Yes. BATHING - STEP 3: How much assistance does the patient require from the helper? Only supervision, cuing, coaxing, instr uctions, encouragement BATHING - SCORE: 5-SUP DRESSING - UPPER BODY: T-shirt/pullover shirt (four steps) ARTICLES SCORE Total number of steps: 4 DRESSING - UPPER BODY - STEP 1: Does the patient require help when dressing above the waist? No. DRESSING - UPPER BODY - SCORE: 7-IND DRESSING - LOWER BODY: Sock - Left foot (one step) Sock - Right foot (one step) Underwear (three steps) Zippered pants (four steps) ARTICLES SCORE Total number of steps: 9 DRESSING - LOWER BODY - STEP 1: Does the patient require help when dressing below the waist? Yes. DRESSING - LOWER BODY - STEP 2: Does the patient require the assistance of a helper? Yes. DRESSING - LOWER BODY - STEP 3: Does the helper touch the patient while dressing? No. DRESSING - LOWER BODY - SCORE: 5-SUP TOILETING: Activity did not occur on this shift TOILETING - SCORE: 0-UNK BLADDER MANAGEMENT: Activity did not occur on this shift BLADDER MANAGEMENT - SCORE: 7-IND BOWEL MANAGEMENT: Activity did not occur on this shift BOWEL MANAGEMENT - SCORE: 7-IND TRANSFERS: BED, CHAIR, WHEELCHAIR: Activity did not occur on this shift TRANSFERS: BED, CHAIR, WHEELCHAIR - SCORE: 0-UNK TRANSFERS: TOILET: Activity did not occur on this shift TRANSFERS: TOILET - SCORE: 0-UNK TRANSFERS: SHOWER: TRANSFERS: SHOWER - STEP 1: Does the patient require assistance with shower transfers? Yes. TRANSFERS: SHOWER - STEP 2: Does the patient require the assistance of a helper? Yes. TRANSFERS: SHOWER - STEP 3: How much assistance does the patient require from the helper? Only supervision, cuing, coaxing, or he lp to set out transfer equipment or to lock brakes and/or lift foot rests TRANSFERS: SHOWER - SCORE: 5-SUP TRANSFERS: TUB: Activity did not occur on this shift TRANSFERS: TUB - SCORE: 0-UNK LOCOMOTION: WALK: Activity did not occur on this shift LOCOMOTION: WALK - SCORE: 0-UNK LOCOMOTION: WHEELCHAIR: Activity did not occur on this shift LOCOMOTION: WHEELCHAIR - SCORE: 0-UNK LOCOMOTION: STAIRS: Activity did not occur on this shift LOCOMOTION: STAIRS - SCORE: 0-UNK COMPREHENSION: COMPREHENSION - STEP 1: Does the patient require help to understand complex and abstract ideas (such as current events, finan roni, discharge planning, medical issues, relationships, etc)? No. COMPREHENSION - STEP 2: Does the patient need extra time, require an assistive device (such as glasses, hearing aids, or an a ugmentative communication system), OR does s/he have mild difficulty expressing complex and abstract ideas (including mild dysarthria or mild word-finding problems)? No. COMPREHENSION - SCORE: 7-IND EXPRESSION EXPRESSION: TYPE: Non-Vocal EXPRESSION - STEP 1: Does the patient require help expressing complex and abstract ideas (such as current events, finances , discharge planning, medical issues, relationships, etc)? No. EXPRESSION - STEP 2: Does the patient need extra time, require an assistive device (such as augmentive communication syste m or a communication board), OR does s/he have mild difficulty expressing complex and abstract ideas (including mild dysarthria or mild word-find problems)? No. EXPRESSION - SCORE: 7-IND SOCIAL INTERACTION: SOCIAL INTERACTION - STEP 1: Does the patient require a helper to interact with others in social and therapeutic situations? No. SOCIAL INTERACTION - STEP 2: Does the patient need extra time in social situations, OR does s/he interact with staff, other patien ts, and family members ONLY in structured environments, OR does s/he require medication for social in teraction? No. SOCIAL INTERACTION - SCORE: 7-IND PROBLEM SOLVING: PROBLEM SOLVING - STEP 1: Does the patient need help to solve complex problems such as managing a checking account or confronti ng interpersonal problems? No. PROBLEM SOLVING - STEP 2: Does the patient require extra time to make decisions or solve problems, OR does s/he have slight dif ficulty reading, initiating, or self-correcting in unfamiliar situations? Yes, patient needs extra ti me. PROBLEM SOLVING - SCORE: 6-MARISSA MEMORY: MEMORY - STEP 1: Does the patient need help to remember frequently encountered people, daily routines, and executing r equests? No. MEMORY - STEP 2: Does the patient have slight difficulty recognizing frequently encountered people, daily routines, or executing requests without the need for repetition or using self-initiated or environmental cues to remember? Yes. MEMORY - SCORE: 6-MARISSA SIGNATURE PANEL: The following modified sections: Eating - Score, Grooming - Score, Bathing - Score, Dressing - Upper Body - Score, Dressing - Lower Body - Score, Toileting - Score, Transfers: Bed, Chair, Wheelchair - S core, Transfers: Toilet - Score, Transfers: Shower - Score, Transfers: Tub - Score, Comprehension - S core, Expression - Score, Social Interaction - Score, Problem Solving - Score, Memory - Score were [e lectronically] signed by NADYA Bucio on SatMar 07 2018 15:26:57 [facility]00 ([facility])
[2018-03-07] MEDS: PREGABALIN 150 MG CAP PO SCH (20:32)
[2018-03-07] MEDS: ATORVASTATIN 10 MG TAB PO SCH (20:32)
[2018-03-07] MEDS: DOCUSATE NA/SENNA CONC 1 TAB PO SCH (20:32)
--- NOTE | 2018-03-08 03:29 | FAST ---
SHIFT START DATE/TIME: 03/07/2018 19:00 (CDT) SHIFT END DATE/TIME: 03/08/2018 07:00 (CDT) NAME ANABELA VADLEZ DATE OF : 1955 DATE OF ADMISSION: 03/04/2018 16:50 (CDT) PHONE: AGE: 63 [facility]# [id number] GENDER: Male ENCOUNTER PHYSICIAN: Dr. Thiago Hamilton M.D. ADMISSION DIAGNOSIS: - Orthopaedic Disorders 08 - Unilateral Hip Fracture (08.11) proximal right femur fx. EATING: Activity did not occur on this shift EATING - SCORE: 0-UNK GROOMING: Wash, rinse, and dry hands GROOMING - STEP 1: Does the patient require assistance when grooming? Yes. GROOMING - STEP 2: Does the patient require the assistance of a helper? No. The patient only requires an assistive devic e, OR takes more than reasonable time to groom, OR there is a concern for safety as the patient groom s GROOMING - SCORE: 6-MARISSA BATHING: Activity did not occur on this shift BATHING - SCORE: 0-UNK DRESSING - UPPER BODY: Patient is not dressing in public clothing ARTICLES SCORE Total number of steps: 0 DRESSING - UPPER BODY - SCORE: 0-UNK DRESSING - LOWER BODY: Patient is not dressing in public clothing ARTICLES SCORE Total number of steps: 0 DRESSING - LOWER BODY - SCORE: 0-UNK TOILETING: TOILETING - STEP 1: Does the patient require assistance with toileting? Yes. TOILETING - STEP 2: Does the patient require the assistance of a helper? No. TOILETING - SCORE: 6-MARISSA BLADDER MANAGEMENT: BLADDER MANAGEMENT - STEP 1: Does the patient control the bladder completely and intentionally without equipment or devices or med ications, and is always continent? No. BLADDER MANAGEMENT - STEP 2: Does the patient require the assistance of a helper? Yes. BLADDER MANAGEMENT - STEP 3: How much assistance does the patient require from the helper? Only supervision, stand-by, cuing, or c oaxing BLADDER MANAGEMENT - SCORE: 5-SUP BOWEL MANAGEMENT: Activity did not occur on this shift BOWEL MANAGEMENT - SCORE: 7-IND TRANSFERS: BED, CHAIR, WHEELCHAIR: TRANSFERS: BED, CHAIR, WHEELCHAIR - STEP 1: Does the patient require assistance with bed, chair, or wheelchair transfers? Yes. TRANSFERS: BED, CHAIR, WHEELCHAIR - STEP 2: Does the patient require the assistance of a helper? No. Patient only requires an assistive device fo r bed, chair, wheelchair transfers such as a sliding board, grab bar, or brace, OR s/he takes more th an reasonable time, OR there is a safety concern when s/he performs the transfers TRANSFERS: BED, CHAIR, WHEELCHAIR - SCORE: 6-MARISSA TRANSFERS: TOILET: TRANSFERS: TOILET - STEP 1: Does the patient require assistance with toilet transfers? Yes. TRANSFERS: TOILET - STEP 2: Does the patient require the assistance of a helper? No. Patient only requires an assistive device trent ch as a grab bar or special seat, OR s/he takes more than reasonable time to perform toilet transfers , OR there is a safety concern when s/he performs toilet transfers. TRANSFERS: TOILET - SCORE: 6-MARISSA TRANSFERS: SHOWER: Activity did not occur on this shift TRANSFERS: SHOWER - SCORE: 0-UNK TRANSFERS: TUB: Activity did not occur on this shift TRANSFERS: TUB - SCORE: 0-UNK LOCOMOTION: WALK: Activity did not occur on this shift LOCOMOTION: WALK - SCORE: 0-UNK LOCOMOTION: WHEELCHAIR: Activity did not occur on this shift LOCOMOTION: WHEELCHAIR - SCORE: 0-UNK COMPREHENSION: COMPREHENSION: TYPE: Both COMPREHENSION - STEP 1: Does the patient require help to understand complex and abstract ideas (such as current events, finan roni, discharge planning, medical issues, relationships, etc)? No. COMPREHENSION - STEP 2: Does the patient need extra time, require an assistive device (such as glasses, hearing aids, or an a ugmentative communication system), OR does s/he have mild difficulty expressing complex and abstract ideas (including mild dysarthria or mild word-finding problems)? Yes. COMPREHENSION - SCORE: 6-MARISSA EXPRESSION EXPRESSION: TYPE: Both EXPRESSION - STEP 1: Does the patient require help expressing complex and abstract ideas (such as current events, finances , discharge planning, medical issues, relationships, etc)? No. EXPRESSION - STEP 2: Does the patient need extra time, require an assistive device (such as augmentive communication syste m or a communication board), OR does s/he have mild difficulty expressing complex and abstract ideas (including mild dysarthria or mild word-find problems)? Yes. EXPRESSION - SCORE: 6-MARISSA SOCIAL INTERACTION: SOCIAL INTERACTION - STEP 1: Does the patient require a helper to interact with others in social and therapeutic situations? No. SOCIAL INTERACTION - STEP 2: Does the patient need extra time in social situations, OR does s/he interact with staff, other patien ts, and family members ONLY in structured environments, OR does s/he require medication for social in teraction? No. SOCIAL INTERACTION - SCORE: 7-IND PROBLEM SOLVING: PROBLEM SOLVING - STEP 1: Does the patient need help to solve complex problems such as managing a checking account or confronti ng interpersonal problems? No. PROBLEM SOLVING - STEP 2: Does the patient require extra time to make decisions or solve problems, OR does s/he have slight dif ficulty reading, initiating, or self-correcting in unfamiliar situations? Yes, patient needs extra ti me. PROBLEM SOLVING - SCORE: 6-MARISSA MEMORY: MEMORY - STEP 1: Does the patient need help to remember frequently encountered people, daily routines, and executing r equests? No. MEMORY - STEP 2: Does the patient have slight difficulty recognizing frequently encountered people, daily routines, or executing requests without the need for repetition or using self-initiated or environmental cues to remember? Yes. MEMORY - SCORE: 6-MARISSA
[2018-03-08] MEDS: ENOXAPARIN 40 MG/0.4 ML SQ SCH (07:28)
[2018-03-08] MEDS: hydroCHLOROthiazide 12.5 MG CAP PO SCH (07:29)
[2018-03-08] MEDS: TRAMADOL HCL 50 MG TAB PO PRN (07:29)
[2018-03-08] MEDS: PREGABALIN 150 MG CAP PO SCH (08:00)
[2018-03-08] MEDS: NICOTINE 21 MG/PAT TD SCH (09:57)
[2018-03-08] MEDS: HYDROCODONE/APAP 10/325 TAB PO PRN ×3 (10:17→20:24)
[2018-03-08] MEDS: PREGABALIN 75 MG CAP PO SCH ×2 (11:47→20:25)
--- NOTE | 2018-03-08 15:51 | R.PN ---
ENCOUNTER DATE AND TIME: 03/08/2018 14:46 (CDT) NAME ANABELA VALDEZ DATE OF : 1955 DATE OF ADMISSION: 03/04/2018 16:50 (CDT) proximal right femur fxCHIEF COMPLAINT: Right hip fracture SUBJECTIVE: Pt denied any Shortness of Breath. Pt denied any depression. Ambulated 1500' with standby assistance using a rolling walker. Up and down 15 steps with standby as sistance. Reports 10/10 pain in the right hip. He is taking [place] 10/325 every four hours. Will add a lidoderm patch daily and do right hip x-ray. VITAL SIGNS Temperature: 97.9 F SBP/DBP: 115/63 Pulse: 82 Resp: 16 MEDICATION ALLERGIES: No Known Drug Allergies (NKDA) ENVIRONMENTAL ALLERGIES: - Substance Allergies None Known - Other Allergies None Known NURSING: - Shower allowing shower - Skin care per protocol PRECAUTIONS: - Posterior Hip Precaution No adduction across midline No external rotation No hip flexion >90 degrees No internal rotation No wheel chair propulsion - Weight Bearing Precaution WBAT right LE ACTIVITIES OOB only with supervision THERAPIES: - Occupational Therapy Evaluate and Treat. - Physical Therapy Evaluate and Treat. PHYSICAL EXAM - Gen Alert and awake Lying in bed No apparent distress Oriented to: person, time, and place - Skin RLE incisions intact No abnormalities - Eyes No abnormalities - ENMT No abnormalities - Neck No abnormalities - CVS RRR - Chest Clear - Abd +bowel sounds - GI Soft No abnormalities - No abnormalities - Ext Right hip surgical site has good hemostasis. - MSK No weakenss in the extremities. - Neuro No focal neurological deficits. - Psych No abnormalities ASSESSMENT: Pt. is a 63 yo Right-handed white male.On 02/26/2018 he was admitted to [facility] and underwent emergency surgery for proximal right femur fx (right hip hemiarthroplasty) by Britta Muhammad.Pre-morbidly, Pt. was independent/mod-I in Self-Care, Sphincter Control, Transfers Control, Communication, Social Cognition, and Locomotion; and he had good Sphincter Control.Currently, he has deficits of Transfers Control, Social Cognition, Endurance, Balance, Safety Awareness, Locomotion, a nd Self-Care.Pt. is now referred to [facility] for acute in-patient rehabilita tion in order to maximize patient's functional independence in activities of daily living, strength, ROM, and mobility.- Rehab Goal Patient has realistic goal of being discharged at assistance level 6-Cat to reside at Home with Fam rama/Relatives. MDM/PLAN: - Anterior Hip Precaution No abduction No active extension No adduction across midline No external rotation No hip flexion >90 degrees No internal rotation - Physical Therapy Decreased range of motion - to improve, our physical therapists will perform initial evaluation of p t's status upon admission and devise an individualized program for increasing patient's Range of Jose on. Gait dysfunction - to improve, our physical therapists will perform initial evaluation of pt's statu s upon admission and devise an individualized program for Gait Training, and Wheel Chair mobility Inability to transfer - to improve, our physical therapists will perform initial evaluation of pt's status upon admission and devise an individualized program for Bed mobility Need for home safety evaluation - to improve, our physical therapists will perform initial evaluatio n of pt's status upon admission and devise an individualized program for Home Evaluation Need in caregiver upon discharge - to improve, our physical therapists will perform initial evaluati on of pt's status upon admission and devise an individualized program for Caregiver Training New precaution - to improve, our physical therapists will perform initial evaluation of pt's status upon admission and devise an individualized program for Patient precaution education Poor balance - to improve, our physical therapists will perform initial evaluation of pt's status up on admission and devise an individualized program for Balance Training Poor endurance - to improve, our physical therapists will perform initial evaluation of pt's status upon admission and devise an individualized program for Endurance Training Weakness - to improve, our physical therapists will perform initial evaluation of pt's status upon a dmission and devise an individualized program for Aquatic Therapy, Neuromuscular Reeducation, and Str engthening Achieving independence - to improve, our physical therapists will perform initial evaluation of pt's status upon admission and devise an individualized program for Community Reintegration Activities - Diet - Liquid Texture Continue Regular - Tube Feed Continue N/A - Diet Type Continue Regular - Posterior Hip Precaution No adduction across midline No external rotation No hip flexion >90 degrees No internal rotation No wheel chair propulsion - Occupational Therapy ADL deficits - to improve, our occupation therapists will perform initial evaluation of pt's status upon admission and devise an individualized program for Bathing, Bed mobility, Community Reintegratio n, Cooking, Dressing, Eating, Fine Motor Skills, Grooming, Homemaking, Kitchen Mobility, Laundry, Pat ient Education, Safety Awareness, Splinting - Positioning, Transfers(Toilet, Tub, Shower), and Wheel Chair Management Cognitive deficits - to improve, our occupation therapists will perform initial evaluation of pt's s tatus upon admission and devise an individualized program for Cognition - orientation Need for career coordinator - to improve, our occupation therapists will perform initial evaluation of pt's status upon admission and devise an individualized program for Caregiver Training Weakness - to improve, our occupation therapists will perform initial evaluation of pt's status upon admission and devise an individualized program for Aquatic Therapy, Balance, Endurance, UE ROM, and UE strengthening - Weight Bearing Precaution WBAT right LE - Skin care per protocol - Diet - Solid Texture Continue Regular - Shower allowing shower FUNCTIONAL STATUS: UPDATED AT WEEKLY TEAM CONFERENCE - Bladder Same accident frequency: 7-Ind - No accidents in the past 7 days - Bowel Same accident frequency: 7-Ind - No accidents in the past 7 days - Walking Same score based on distance walked: 0(N/A) FUNCTIONAL STATUS: - Self-Care A. Eating Ind B. Grooming Ind C. Bathing Liv D. Dressing - Upper Ind E. Dressing - Lower modA F. Toileting Liv - Sphincter Control G: Bladder control Ind H: Bowel control Ind - Transfers Control I. Bed/Chair/Wheelchair modA J. Toilet modA K. Tub/Shower ADNO - Locomotion L. Walk/Wheelchair (B) Dep M. Stairs ADNO - Communication N. Comprehension (B) Ind O. Expression (B) Ind - Social Cognition P. Social Interaction sup Q. Problem Solving Ind R. Memory Ind - Endurance Poor - Balance Poor - Safety Awareness Fair CURRENT FUNC. DEFICITS: Transfers Control, Social Cognition, Endurance, Balance, Safety Awareness, Locomotion, and Self-Care SIGNATURE PANEL: (CDT)
--- NOTE | 2018-03-08 16:47 | FAST ---
SHIFT START DATE/TIME: 03/08/2018 07:00 (CDT) SHIFT END DATE/TIME: 03/08/2018 19:00 (CDT) NAME ANABELA VALDEZ DATE OF : 1955 DATE OF ADMISSION: 03/04/2018 16:50 (CDT) PHONE: AGE: 63 [facility]# [phone] GENDER: Male ENCOUNTER PHYSICIAN: Dr. Thiago Hamilton M.D. ADMISSION DIAGNOSIS: - Orthopaedic Disorders 08 - Unilateral Hip Fracture (08.11) proximal right femur fx. EATING: EATING - STEP 1: Does the patient require assistance when eating? Yes. EATING - STEP 2: Does the patient require the assistance of a helper? No, patient only requires an assistive device, O R s/he takes more than reasonable time to eat, OR there is a safety concern, OR s/he requires modifie d food consistency EATING - SCORE: 6-MARISSA GROOMING: Comb/brush hair Wash, rinse, and dry face Wash, rinse, and dry hands GROOMING - STEP 1: Does the patient require assistance when grooming? Yes. GROOMING - STEP 2: Does the patient require the assistance of a helper? No. The patient only requires an assistive devic e, OR takes more than reasonable time to groom, OR there is a concern for safety as the patient groom s GROOMING - SCORE: 6-MARISSA BATHING: Activity did not occur on this shift BATHING - SCORE: 0-UNK DRESSING - UPPER BODY: T-shirt/pullover shirt (four steps) ARTICLES SCORE Total number of steps: 4 DRESSING - UPPER BODY - STEP 1: Does the patient require help when dressing above the waist? Yes. DRESSING - UPPER BODY - STEP 2: Does the patient require the assistance of a helper? Yes. DRESSING - UPPER BODY - STEP 3: Does the helper touch the patient while dressing? No. DRESSING - UPPER BODY - SCORE: 5-SUP DRESSING - LOWER BODY: Elastic waist pants (three steps) Tied or buckled shoe - Left foot (two steps) Tied or buckled shoe - Right foot (two steps) ARTICLES SCORE Total number of steps: 7 DRESSING - LOWER BODY - STEP 1: Does the patient require help when dressing below the waist? Yes. DRESSING - LOWER BODY - STEP 2: Does the patient require the assistance of a helper? Yes. DRESSING - LOWER BODY - STEP 3: Does the helper touch the patient while dressing? No. DRESSING - LOWER BODY - SCORE: 5-SUP TOILETING: TOILETING - STEP 1: Does the patient require assistance with toileting? Yes. TOILETING - STEP 2: Does the patient require the assistance of a helper? Yes. TOILETING - STEP 3: How much assistance does the patient require from the helper? Only supervision TOILETING - SCORE: 5-SUP BLADDER MANAGEMENT: BLADDER MANAGEMENT - STEP 1: Does the patient control the bladder completely and intentionally without equipment or devices or med ications, and is always continent? No. BLADDER MANAGEMENT - STEP 2: Does the patient require the assistance of a helper? No, patient requires and independently uses an a ssistive device, such as a urinal, bedpan, bedside commode, catheter, absorbent pad, or collecting de vice BLADDER MANAGEMENT - SCORE: 6-MARISSA BLADDER MANAGEMENT - FREQUENCY OF ACCIDENTS: BLADDER MANAGEMENT(FA) - STEP 1: How many accidents has the patient had during the current shift? 0 BOWEL MANAGEMENT: Activity did not occur on this shift BOWEL MANAGEMENT - SCORE: 7-IND BOWEL MANAGEMENT - FREQUENCY OF ACCIDENTS: BOWEL MANAGEMENT(FA) - STEP 1: How many accidents has the patient had during the current shift? 0 TRANSFERS: BED, CHAIR, WHEELCHAIR: TRANSFERS: BED, CHAIR, WHEELCHAIR - STEP 1: Does the patient require assistance with bed, chair, or wheelchair transfers? Yes. TRANSFERS: BED, CHAIR, WHEELCHAIR - STEP 2: Does the patient require the assistance of a helper? Yes. TRANSFERS: BED, CHAIR, WHEELCHAIR - STEP 3: How much assistance does the patient require from the helper? Only supervision TRANSFERS: BED, CHAIR, WHEELCHAIR - SCORE: 5-SUP TRANSFERS: TOILET: TRANSFERS: TOILET - STEP 1: Does the patient require assistance with toilet transfers? Yes. TRANSFERS: TOILET - STEP 2: Does the patient require the assistance of a helper? Yes. TRANSFERS: TOILET - STEP 3: How much assistance does the patient require from the helper? Patient performs half or more of the tr ansferring tasks TRANSFERS: TOILET - STEP 4: Does the patient need only incidental help such as contact guard or steadying during toilet transfer? Yes. TRANSFERS: TOILET - SCORE: 4-MIN TRANSFERS: SHOWER: Activity did not occur on this shift TRANSFERS: SHOWER - SCORE: 0-UNK TRANSFERS: TUB: Activity did not occur on this shift TRANSFERS: TUB - SCORE: 0-UNK LOCOMOTION: WALK: Activity did not occur on this shift LOCOMOTION: WALK - SCORE: 0-UNK LOCOMOTION: WHEELCHAIR: LOCOMOTION: WHEELCHAIR - STEP 1: Does the patient need help to go 150 feet in a wheelchair? No. LOCOMOTION: WHEELCHAIR - SCORE: 6-MARISSA COMPREHENSION: COMPREHENSION: TYPE: Both COMPREHENSION - STEP 1: Does the patient require help to understand complex and abstract ideas (such as current events, finan roni, discharge planning, medical issues, relationships, etc)? No. COMPREHENSION - STEP 2: Does the patient need extra time, require an assistive device (such as glasses, hearing aids, or an a ugmentative communication system), OR does s/he have mild difficulty expressing complex and abstract ideas (including mild dysarthria or mild word-finding problems)? Yes. COMPREHENSION - SCORE: 6-MARISSA EXPRESSION EXPRESSION: TYPE: Both EXPRESSION - STEP 1: Does the patient require help expressing complex and abstract ideas (such as current events, finances , discharge planning, medical issues, relationships, etc)? No. EXPRESSION - STEP 2: Does the patient need extra time, require an assistive device (such as augmentive communication syste m or a communication board), OR does s/he have mild difficulty expressing complex and abstract ideas (including mild dysarthria or mild word-find problems)? Yes. EXPRESSION - SCORE: 6-MARISSA SOCIAL INTERACTION: SOCIAL INTERACTION - STEP 1: Does the patient require a helper to interact with others in social and therapeutic situations? No. SOCIAL INTERACTION - STEP 2: Does the patient need extra time in social situations, OR does s/he interact with staff, other patien ts, and family members ONLY in structured environments, OR does s/he require medication for social in teraction? Yes, patient needs extra time SOCIAL INTERACTION - SCORE: 6-MARISSA PROBLEM SOLVING: PROBLEM SOLVING - STEP 1: Does the patient need help to solve complex problems such as managing a checking account or confronti ng interpersonal problems? Yes. PROBLEM SOLVING - STEP 2: Does the patient solve basic routine problems half or more of the time? Yes. PROBLEM SOLVING - STEP 3: How often does the patient need help to solve basic routine problems? Less than 10% of the time PROBLEM SOLVING - SCORE: 5-SUP MEMORY: MEMORY - STEP 1: Does the patient need help to remember frequently encountered people, daily routines, and executing r equests? No. MEMORY - STEP 2: Does the patient have slight difficulty recognizing frequently encountered people, daily routines, or executing requests without the need for repetition or using self-initiated or environmental cues to remember? Yes. MEMORY - SCORE: 6-MARISSA SIGNATURE PANEL: The following modified sections: Eating - Score, Grooming - Score, Bathing - Score, Dressing - Upper Body - Score, Dressing - Lower Body - Score, Toileting - Score, Bladder Management - Score, Bowel Man agement - Score, Transfers: Bed, Chair, Wheelchair - Score, Transfers: Toilet - Score, Transfers: Sonya wer - Score, Transfers: Tub - Score, Locomotion: Walk - Score, Locomotion: Wheelchair - Score, Compre hension - Score, Expression - Score, Social Interaction - Score, Problem Solving - Score, Memory - Sc ore were [electronically] signed by Ivette Perrin C.N.A. on Sat Mar 08 2018 15:49:54 T-0500 (Centra l Daylight Time)
--- NOTE | 2018-03-08 17:30 | RAD REPORT ---
EXAM DESCRIPTION: RAD - Hip Right 2 View - 03/08/2018 5:22 pm CLINICAL HISTORY: Right hip pain COMPARISON: 02/27/2018 FINDINGS: Right total hip arthroplasty is noted. Skin mir are seen. No unexpected finding.
[2018-03-08] MEDS ORDERED: BACLOFEN 10 MG TAB PO SCH (20:00)
[2018-03-08] MEDS: PROMOD 30 ML DOSE PO SCH (20:25)
[2018-03-08] MEDS: ATORVASTATIN 10 MG TAB PO SCH (20:25)
[2018-03-08] MEDS: DOCUSATE NA/SENNA CONC 1 TAB PO SCH (20:25)
--- NOTE | 2018-03-09 02:36 | FAST ---
SHIFT START DATE/TIME: 03/08/2018 19:00 (CDT) SHIFT END DATE/TIME: 03/09/2018 07:00 (CDT) NAME ANABELA VALDEZ DATE OF : 1955 DATE OF ADMISSION: 03/04/2018 16:50 (CDT) PHONE: AGE: 63 [facility]# [phone] GENDER: Male ENCOUNTER PHYSICIAN: Dr. Thiago Hamilton M.D. ADMISSION DIAGNOSIS: - Orthopaedic Disorders 08 - Unilateral Hip Fracture (08.11) proximal right femur fx. EATING: Activity did not occur on this shift EATING - SCORE: 0-UNK GROOMING: Comb/brush hair Oral care Wash, rinse, and dry face Wash, rinse, and dry hands GROOMING - STEP 1: Does the patient require assistance when grooming? Yes. GROOMING - STEP 2: Does the patient require the assistance of a helper? Yes. GROOMING - STEP 3: How much assistance does the patient require from the helper? Only prior equipment preparation/set up from the helper GROOMING - SCORE: 5-SUP BATHING: Activity did not occur on this shift BATHING - SCORE: 0-UNK DRESSING - UPPER BODY: Patient is not dressing in public clothing ARTICLES SCORE Total number of steps: 0 DRESSING - UPPER BODY - SCORE: 0-UNK DRESSING - LOWER BODY: Patient is not dressing in public clothing ARTICLES SCORE Total number of steps: 0 DRESSING - LOWER BODY - SCORE: 0-UNK TOILETING: TOILETING - STEP 1: Does the patient require assistance with toileting? Yes. TOILETING - STEP 2: Does the patient require the assistance of a helper? Yes. TOILETING - STEP 3: How much assistance does the patient require from the helper? Only supervision TOILETING - SCORE: 5-SUP BLADDER MANAGEMENT: BLADDER MANAGEMENT - STEP 1: Does the patient control the bladder completely and intentionally without equipment or devices or med ications, and is always continent? No. BLADDER MANAGEMENT - STEP 2: Does the patient require the assistance of a helper? Yes. BLADDER MANAGEMENT - STEP 3: How much assistance does the patient require from the helper? Only set-up of equipment - such as plac ing it within reach of the patient or emptying a device - to maintain either satisfactory voiding pat tern or managing an external device, such as an absorbent pad, ileal device, or catheter BLADDER MANAGEMENT - SCORE: 5-SUP BOWEL MANAGEMENT: Activity did not occur on this shift BOWEL MANAGEMENT - SCORE: 7-IND TRANSFERS: BED, CHAIR, WHEELCHAIR: TRANSFERS: BED, CHAIR, WHEELCHAIR - STEP 1: Does the patient require assistance with bed, chair, or wheelchair transfers? Yes. TRANSFERS: BED, CHAIR, WHEELCHAIR - STEP 2: Does the patient require the assistance of a helper? Yes. TRANSFERS: BED, CHAIR, WHEELCHAIR - STEP 3: How much assistance does the patient require from the helper? Steadying/guiding assistance TRANSFERS: BED, CHAIR, WHEELCHAIR - SCORE: 4-MIN TRANSFERS: TOILET: TRANSFERS: TOILET - STEP 1: Does the patient require assistance with toilet transfers? Yes. TRANSFERS: TOILET - STEP 2: Does the patient require the assistance of a helper? Yes. TRANSFERS: TOILET - STEP 3: How much assistance does the patient require from the helper? Only supervision, cuing, coaxing, OR he lp to set out transfer equipment or to lock brakes and/or lift foot rests TRANSFERS: TOILET - SCORE: 5-SUP TRANSFERS: SHOWER: Activity did not occur on this shift TRANSFERS: SHOWER - SCORE: 0-UNK TRANSFERS: TUB: Activity did not occur on this shift TRANSFERS: TUB - SCORE: 0-UNK LOCOMOTION: WALK: Activity did not occur on this shift LOCOMOTION: WALK - SCORE: 0-UNK LOCOMOTION: WHEELCHAIR: Activity did not occur on this shift LOCOMOTION: WHEELCHAIR - SCORE: 0-UNK COMPREHENSION: COMPREHENSION - STEP 1: Does the patient require help to understand complex and abstract ideas (such as current events, finan roni, discharge planning, medical issues, relationships, etc)? No. COMPREHENSION - STEP 2: Does the patient need extra time, require an assistive device (such as glasses, hearing aids, or an a ugmentative communication system), OR does s/he have mild difficulty expressing complex and abstract ideas (including mild dysarthria or mild word-finding problems)? Yes. COMPREHENSION - SCORE: 6-MARISSA EXPRESSION EXPRESSION - STEP 1: Does the patient require help expressing complex and abstract ideas (such as current events, finances , discharge planning, medical issues, relationships, etc)? No. EXPRESSION - STEP 2: Does the patient need extra time, require an assistive device (such as augmentive communication syste m or a communication board), OR does s/he have mild difficulty expressing complex and abstract ideas (including mild dysarthria or mild word-find problems)? No. EXPRESSION - SCORE: 7-IND SOCIAL INTERACTION: SOCIAL INTERACTION - STEP 1: Does the patient require a helper to interact with others in social and therapeutic situations? No. SOCIAL INTERACTION - STEP 2: Does the patient need extra time in social situations, OR does s/he interact with staff, other patien ts, and family members ONLY in structured environments, OR does s/he require medication for social in teraction? No. SOCIAL INTERACTION - SCORE: 7-IND PROBLEM SOLVING: PROBLEM SOLVING - STEP 1: Does the patient need help to solve complex problems such as managing a checking account or confronti ng interpersonal problems? No. PROBLEM SOLVING - STEP 2: Does the patient require extra time to make decisions or solve problems, OR does s/he have slight dif ficulty reading, initiating, or self-correcting in unfamiliar situations? Yes, patient needs extra ti me. PROBLEM SOLVING - SCORE: 6-MARISSA MEMORY: MEMORY - STEP 1: Does the patient need help to remember frequently encountered people, daily routines, and executing r equests? No. MEMORY - STEP 2: Does the patient have slight difficulty recognizing frequently encountered people, daily routines, or executing requests without the need for repetition or using self-initiated or environmental cues to remember? No. MEMORY - SCORE: 7-IND SIGNATURE PANEL: The following modified sections: Eating - Score, Grooming - Score, Dressing - Upper Body - Score, Sandip ssing - Lower Body - Score, Toileting - Score, Bladder Management - Score, Bowel Management - Score, Transfers: Bed, Chair, Wheelchair - Score, Transfers: Toilet - Score, Transfers: Shower - Score, Vale sfers: Tub - Score, Locomotion: Walk - Score, Locomotion: Wheelchair - Score, Comprehension - Score, Expression - Score, Social Interaction - Score, Problem Solving - Score, Memory - Score were [electro nically] signed by Gaviota Matthews CNA on SatMar 09 2018 01:38:09 GMT-0500 (Central Daylight Time)
[2018-03-09] MEDS: ENOXAPARIN 40 MG/0.4 ML SQ SCH (07:37)
[2018-03-09] MEDS: HYDROCODONE/APAP 10/325 TAB PO PRN ×3 (07:37→19:01)
[2018-03-09] MEDS: AMLODIPINE 5 MG TAB PO SCH (07:38)
[2018-03-09] MEDS: hydroCHLOROthiazide 12.5 MG CAP PO SCH (07:38)
[2018-03-09] MEDS: LIDOCAINE 5% PATCH TOP SCH (07:39)
[2018-03-09] MEDS: NICOTINE 21 MG/PAT TD SCH (07:44)
[2018-03-09] MEDS: PROMOD 30 ML DOSE PO SCH ×2 (07:45→20:06)
[2018-03-09] MEDS: PREGABALIN 75 MG CAP PO SCH ×2 (08:00→20:05)
[2018-03-09] MEDS: ATORVASTATIN 10 MG TAB PO SCH (20:05)
[2018-03-09] MEDS: DOCUSATE NA/SENNA CONC 1 TAB PO SCH (20:06)
[2018-03-10] MEDS: HYDROCODONE/APAP 10/325 TAB PO PRN ×5 (02:02→20:24)
--- NOTE | 2018-03-10 04:18 | FAST ---
SHIFT START DATE/TIME: 03/09/2018 19:00 (CDT) SHIFT END DATE/TIME: 03/10/2018 07:00 (CDT) NAME ANABELA VALDEZ DATE OF : 1955 DATE OF ADMISSION: 03/04/2018 16:50 (CDT) PHONE: AGE: 63 [facility]# [id number] GENDER: Male ENCOUNTER PHYSICIAN: Dr. Thiago Hamilton M.D. ADMISSION DIAGNOSIS: - Orthopaedic Disorders 08 - Unilateral Hip Fracture (08.11) proximal right femur fx. EATING: EATING - STEP 1: Does the patient require assistance when eating? Yes. EATING - STEP 2: Does the patient require the assistance of a helper? No, patient only requires an assistive device, O R s/he takes more than reasonable time to eat, OR there is a safety concern, OR s/he requires modifie d food consistency EATING - SCORE: 6-MARISSA GROOMING: Oral care Wash, rinse, and dry face Wash, rinse, and dry hands GROOMING - STEP 1: Does the patient require assistance when grooming? Yes. GROOMING - STEP 2: Does the patient require the assistance of a helper? No. The patient only requires an assistive devic e, OR takes more than reasonable time to groom, OR there is a concern for safety as the patient groom s GROOMING - SCORE: 6-MARISSA BATHING: Activity did not occur on this shift BATHING - SCORE: 0-UNK DRESSING - UPPER BODY: Patient is not dressing in public clothing ARTICLES SCORE Total number of steps: 0 DRESSING - UPPER BODY - SCORE: 0-UNK DRESSING - LOWER BODY: Patient is not dressing in public clothing ARTICLES SCORE Total number of steps: 0 DRESSING - LOWER BODY - SCORE: 0-UNK TOILETING: TOILETING - STEP 1: Does the patient require assistance with toileting? Yes. TOILETING - STEP 2: Does the patient require the assistance of a helper? Yes. TOILETING - STEP 3: How much assistance does the patient require from the helper? Hands-on assistance from the helper TOILETING - STEP 4: Of the 3 tasks: 1) Adjusting clothing prior to use, 2) Cleansing of perineal area, 3) Adjusting clot lola after use; How many tasks does the patient perform WITHOUT assistance of the helper? Three tasks with steadying assistance from the helper TOILETING - SCORE: 4-MIN BLADDER MANAGEMENT: BLADDER MANAGEMENT - STEP 1: Does the patient control the bladder completely and intentionally without equipment or devices or med ications, and is always continent? No. BLADDER MANAGEMENT - STEP 2: Does the patient require the assistance of a helper? Yes. BLADDER MANAGEMENT - STEP 3: How much assistance does the patient require from the helper? Only supervision, stand-by, cuing, or c oaxing BLADDER MANAGEMENT - SCORE: 5-SUP BLADDER MANAGEMENT - FREQUENCY OF ACCIDENTS: BLADDER MANAGEMENT(FA) - STEP 1: How many accidents has the patient had during the current shift? 0 BOWEL MANAGEMENT: Activity did not occur on this shift BOWEL MANAGEMENT - SCORE: 7-IND TRANSFERS: BED, CHAIR, WHEELCHAIR: TRANSFERS: BED, CHAIR, WHEELCHAIR - STEP 1: Does the patient require assistance with bed, chair, or wheelchair transfers? Yes. TRANSFERS: BED, CHAIR, WHEELCHAIR - STEP 2: Does the patient require the assistance of a helper? Yes. TRANSFERS: BED, CHAIR, WHEELCHAIR - STEP 3: How much assistance does the patient require from the helper? Only supervision TRANSFERS: BED, CHAIR, WHEELCHAIR - SCORE: 5-SUP TRANSFERS: TOILET: TRANSFERS: TOILET - STEP 1: Does the patient require assistance with toilet transfers? Yes. TRANSFERS: TOILET - STEP 2: Does the patient require the assistance of a helper? Yes. TRANSFERS: TOILET - STEP 3: How much assistance does the patient require from the helper? Only supervision, cuing, coaxing, OR he lp to set out transfer equipment or to lock brakes and/or lift foot rests TRANSFERS: TOILET - SCORE: 5-SUP TRANSFERS: SHOWER: Activity did not occur on this shift TRANSFERS: SHOWER - SCORE: 0-UNK TRANSFERS: TUB: Activity did not occur on this shift TRANSFERS: TUB - SCORE: 0-UNK LOCOMOTION: WALK: Activity did not occur on this shift LOCOMOTION: WALK - SCORE: 0-UNK LOCOMOTION: WHEELCHAIR: Activity did not occur on this shift LOCOMOTION: WHEELCHAIR - SCORE: 0-UNK COMPREHENSION: COMPREHENSION: TYPE: Both COMPREHENSION - STEP 1: Does the patient require help to understand complex and abstract ideas (such as current events, finan roni, discharge planning, medical issues, relationships, etc)? No. COMPREHENSION - STEP 2: Does the patient need extra time, require an assistive device (such as glasses, hearing aids, or an a ugmentative communication system), OR does s/he have mild difficulty expressing complex and abstract ideas (including mild dysarthria or mild word-finding problems)? Yes. COMPREHENSION - SCORE: 6-MARISSA EXPRESSION EXPRESSION: TYPE: Both EXPRESSION - STEP 1: Does the patient require help expressing complex and abstract ideas (such as current events, finances , discharge planning, medical issues, relationships, etc)? No. EXPRESSION - STEP 2: Does the patient need extra time, require an assistive device (such as augmentive communication syste m or a communication board), OR does s/he have mild difficulty expressing complex and abstract ideas (including mild dysarthria or mild word-find problems)? Yes. EXPRESSION - SCORE: 6-MARISSA SOCIAL INTERACTION: SOCIAL INTERACTION - STEP 1: Does the patient require a helper to interact with others in social and therapeutic situations? No. SOCIAL INTERACTION - STEP 2: Does the patient need extra time in social situations, OR does s/he interact with staff, other patien ts, and family members ONLY in structured environments, OR does s/he require medication for social in teraction? Yes, patient needs extra time SOCIAL INTERACTION - SCORE: 6-MARISSA PROBLEM SOLVING: PROBLEM SOLVING - STEP 1: Does the patient need help to solve complex problems such as managing a checking account or confronti ng interpersonal problems? No. PROBLEM SOLVING - STEP 2: Does the patient require extra time to make decisions or solve problems, OR does s/he have slight dif ficulty reading, initiating, or self-correcting in unfamiliar situations? Yes, patient needs extra ti me. PROBLEM SOLVING - SCORE: 6-MARISSA MEMORY: MEMORY - STEP 1: Does the patient need help to remember frequently encountered people, daily routines, and executing r equests? No. MEMORY - STEP 2: Does the patient have slight difficulty recognizing frequently encountered people, daily routines, or executing requests without the need for repetition or using self-initiated or environmental cues to remember? Yes. MEMORY - SCORE: 6-MARISSA SIGNATURE PANEL: The following modified sections: Eating - Score, Grooming - Score, Bathing - Score, Dressing - Upper Body - Score, Dressing - Lower Body - Score, Toileting - Score, Bladder Management - Score, Bowel Man agement - Score, Transfers: Bed, Chair, Wheelchair - Score, Transfers: Toilet - Score, Transfers: Sonya wer - Score, Transfers: Tub - Score, Locomotion: Walk - Score, Locomotion: Wheelchair - Score, Compre hension - Score, Expression - Score, Social Interaction - Score, Problem Solving - Score, Memory - Sc ore were [electronically] signed by Sriram BowlesNJazzy on SatMar 10 2018 03:20:38 T-0500 ( Central Daylight Time)
[2018-03-10] MEDS: AMLODIPINE 5 MG TAB PO SCH (08:00)
[2018-03-10] MEDS: hydroCHLOROthiazide 12.5 MG CAP PO SCH (08:00)
[2018-03-10] MEDS: PREGABALIN 75 MG CAP PO SCH ×2 (08:00→20:24)
[2018-03-10] MEDS: NICOTINE 21 MG/PAT TD SCH (09:21)
[2018-03-10] MEDS: ENOXAPARIN 40 MG/0.4 ML SQ SCH (09:21)
[2018-03-10] MEDS: LIDOCAINE 5% PATCH TOP SCH (09:23)
[2018-03-10] MEDS: PROMOD 30 ML DOSE PO SCH ×2 (09:23→20:26)
--- NOTE | 2018-03-10 15:42 | FAST ---
ENCOUNTER DATE AND TIME: 03/10/2018 08:00 (CDT) NAME ANABELA VALDEZ DATE OF : 1955 DATE OF ADMISSION: 03/04/2018 16:50 (CDT) PHONE: AGE: 63 N# [id number] GENDER: Male ENCOUNTER PHYSICIAN: Dr. Thiago Hamilton M.D. ADMISSION DIAGNOSIS: - Orthopaedic Disorders 08 - Unilateral Hip Fracture (08.11) proximal right femur fx. EATING: Activity did not occur on this shift EATING - SCORE: 0-UNK GROOMING: Wash, rinse, and dry face Wash, rinse, and dry hands GROOMING - STEP 1: Does the patient require assistance when grooming? No. GROOMING - SCORE: 7-IND BATHING: Abdomen Buttocks Chest Left arm Left lower leg and foot Left upper leg Perineal area Right arm Right lower leg and foot Right upper leg BATHING - STEP 1: Does the patient require assistance when bathing? No. BATHING - SCORE: 7-IND DRESSING - UPPER BODY: T-shirt/pullover shirt (four steps) ARTICLES SCORE Total number of steps: 4 DRESSING - UPPER BODY - STEP 1: Does the patient require help when dressing above the waist? No. DRESSING - UPPER BODY - SCORE: 7-IND DRESSING - LOWER BODY: Elastic waist pants (three steps) Sock - Left foot (one step) Sock - Right foot (one step) Underwear (three steps) ARTICLES SCORE Total number of steps: 8 DRESSING - LOWER BODY - STEP 1: Does the patient require help when dressing below the waist? Yes. DRESSING - LOWER BODY - STEP 2: Does the patient require the assistance of a helper? No. Patient requires an assistive device such as a employee relations administrator. OR s/he takes more than reasonable time as s/he dresses the lower body, OR there is a con cern for safety when s/he dresses the lower body DRESSING - LOWER BODY - SCORE: 6-MARISSA TOILETING: Activity did not occur on this shift TOILETING - SCORE: 0-UNK BLADDER MANAGEMENT: Activity did not occur on this shift BLADDER MANAGEMENT - SCORE: 7-IND BOWEL MANAGEMENT: Activity did not occur on this shift BOWEL MANAGEMENT - SCORE: 7-IND TRANSFERS: BED, CHAIR, WHEELCHAIR: Activity did not occur on this shift TRANSFERS: BED, CHAIR, WHEELCHAIR - SCORE: 0-UNK TRANSFERS: TOILET: Activity did not occur on this shift TRANSFERS: TOILET - SCORE: 0-UNK TRANSFERS: SHOWER: TRANSFERS: SHOWER - STEP 1: Does the patient require assistance with shower transfers? Yes. TRANSFERS: SHOWER - STEP 2: Does the patient require the assistance of a helper? No. The patient only uses an assistive device, t akes more than reasonable time, OR there is a concern for safety when s/he performs transfers. TRANSFERS: SHOWER - SCORE: 6-MARISSA TRANSFERS: TUB: Activity did not occur on this shift TRANSFERS: TUB - SCORE: 0-UNK LOCOMOTION: WALK: Activity did not occur on this shift LOCOMOTION: WALK - SCORE: 0-UNK LOCOMOTION: WHEELCHAIR: Activity did not occur on this shift LOCOMOTION: WHEELCHAIR - SCORE: 0-UNK LOCOMOTION: STAIRS: Activity did not occur on this shift LOCOMOTION: STAIRS - SCORE: 0-UNK COMPREHENSION: COMPREHENSION - STEP 1: Does the patient require help to understand complex and abstract ideas (such as current events, finan roni, discharge planning, medical issues, relationships, etc)? No. COMPREHENSION - STEP 2: Does the patient need extra time, require an assistive device (such as glasses, hearing aids, or an a ugmentative communication system), OR does s/he have mild difficulty expressing complex and abstract ideas (including mild dysarthria or mild word-finding problems)? No. COMPREHENSION - SCORE: 7-IND EXPRESSION EXPRESSION: TYPE: Non-Vocal EXPRESSION - STEP 1: Does the patient require help expressing complex and abstract ideas (such as current events, finances , discharge planning, medical issues, relationships, etc)? No. EXPRESSION - STEP 2: Does the patient need extra time, require an assistive device (such as augmentive communication syste m or a communication board), OR does s/he have mild difficulty expressing complex and abstract ideas (including mild dysarthria or mild word-find problems)? No. EXPRESSION - SCORE: 7-IND SOCIAL INTERACTION: SOCIAL INTERACTION - STEP 1: Does the patient require a helper to interact with others in social and therapeutic situations? No. SOCIAL INTERACTION - STEP 2: Does the patient need extra time in social situations, OR does s/he interact with staff, other patien ts, and family members ONLY in structured environments, OR does s/he require medication for social in teraction? No. SOCIAL INTERACTION - SCORE: 7-IND PROBLEM SOLVING: PROBLEM SOLVING - STEP 1: Does the patient need help to solve complex problems such as managing a checking account or confronti ng interpersonal problems? No. PROBLEM SOLVING - STEP 2: Does the patient require extra time to make decisions or solve problems, OR does s/he have slight dif ficulty reading, initiating, or self-correcting in unfamiliar situations? No. PROBLEM SOLVING - SCORE: 7-IND MEMORY: MEMORY - STEP 1: Does the patient need help to remember frequently encountered people, daily routines, and executing r equests? No. MEMORY - STEP 2: Does the patient have slight difficulty recognizing frequently encountered people, daily routines, or executing requests without the need for repetition or using self-initiated or environmental cues to remember? No. MEMORY - SCORE: 7-IND SIGNATURE PANEL: The following modified sections: Eating - Score, Grooming - Score, Bathing - Score, Dressing - Upper Body - Score, Dressing - Lower Body - Score, Toileting - Score, Transfers: Bed, Chair, Wheelchair - S core, Transfers: Toilet - Score, Transfers: Shower - Score, Transfers: Tub - Score, Comprehension - S core, Expression - Score, Social Interaction - Score, Problem Solving - Score, Memory - Score were [e lectronically] signed by NADYA Bucio on SatMar 10 2018 14:44:53 T-0500 ([facility])
--- NOTE | 2018-03-10 15:42 | FAST ---
SHIFT START DATE/TIME: 03/10/2018 07:00 (CDT) SHIFT END DATE/TIME: 03/10/2018 19:00 (CDT) NAME ANABELA VALDEZ DATE OF : 1955 DATE OF ADMISSION: 03/04/2018 16:50 (CDT) PHONE: AGE: 63 [facility]# [id number] GENDER: Male ENCOUNTER PHYSICIAN: Dr. Thiago Hamilton M.D. ADMISSION DIAGNOSIS: - Orthopaedic Disorders 08 - Unilateral Hip Fracture (08.11) proximal right femur fx. EATING: EATING - STEP 1: Does the patient require assistance when eating? Yes. EATING - STEP 2: Does the patient require the assistance of a helper? No, patient only requires an assistive device, O R s/he takes more than reasonable time to eat, OR there is a safety concern, OR s/he requires modifie d food consistency EATING - SCORE: 6-MARISSA GROOMING: Comb/brush hair Oral care Wash, rinse, and dry face Wash, rinse, and dry hands GROOMING - STEP 1: Does the patient require assistance when grooming? Yes. GROOMING - STEP 2: Does the patient require the assistance of a helper? No. The patient only requires an assistive devic e, OR takes more than reasonable time to groom, OR there is a concern for safety as the patient groom s GROOMING - SCORE: 6-MARISSA BATHING: Activity did not occur on this shift BATHING - SCORE: 0-UNK DRESSING - UPPER BODY: Activity did not occur on this shift ARTICLES SCORE Total number of steps: 0 DRESSING - UPPER BODY - SCORE: 0-UNK DRESSING - LOWER BODY: Activity did not occur on this shift ARTICLES SCORE Total number of steps: 0 DRESSING - LOWER BODY - SCORE: 0-UNK TOILETING: TOILETING - STEP 1: Does the patient require assistance with toileting? Yes. TOILETING - STEP 2: Does the patient require the assistance of a helper? No. TOILETING - SCORE: 6-MARISSA BLADDER MANAGEMENT: BLADDER MANAGEMENT - STEP 1: Does the patient control the bladder completely and intentionally without equipment or devices or med ications, and is always continent? No. BLADDER MANAGEMENT - STEP 2: Does the patient require the assistance of a helper? No, patient requires and independently uses an a ssistive device, such as a urinal, bedpan, bedside commode, catheter, absorbent pad, or collecting de vice BLADDER MANAGEMENT - SCORE: 6-MARISSA BOWEL MANAGEMENT: BOWEL MANAGEMENT - STEP 1: Does the patient control bowels completely and intentionally without equipment devices or medications AND is always continent? No. BOWEL MANAGEMENT - STEP 2: Does the patient require the assistance of a helper? No, patient requires and manages independently a n assistive device such as a bedpan, bedside commode, absorbent pad, incontinent device, or collectin g device BOWEL MANAGEMENT - SCORE: 6-MARISSA TRANSFERS: BED, CHAIR, WHEELCHAIR: TRANSFERS: BED, CHAIR, WHEELCHAIR - STEP 1: Does the patient require assistance with bed, chair, or wheelchair transfers? Yes. TRANSFERS: BED, CHAIR, WHEELCHAIR - STEP 2: Does the patient require the assistance of a helper? No. Patient only requires an assistive device fo r bed, chair, wheelchair transfers such as a sliding board, grab bar, or brace, OR s/he takes more th an reasonable time, OR there is a safety concern when s/he performs the transfers TRANSFERS: BED, CHAIR, WHEELCHAIR - SCORE: 6-MARISSA TRANSFERS: TOILET: TRANSFERS: TOILET - STEP 1: Does the patient require assistance with toilet transfers? Yes. TRANSFERS: TOILET - STEP 2: Does the patient require the assistance of a helper? No. Patient only requires an assistive device trent ch as a grab bar or special seat, OR s/he takes more than reasonable time to perform toilet transfers , OR there is a safety concern when s/he performs toilet transfers. TRANSFERS: TOILET - SCORE: 6-MARISSA TRANSFERS: SHOWER: Activity did not occur on this shift TRANSFERS: SHOWER - SCORE: 0-UNK TRANSFERS: TUB: Activity did not occur on this shift TRANSFERS: TUB - SCORE: 0-UNK LOCOMOTION: WALK: Activity did not occur on this shift LOCOMOTION: WALK - SCORE: 0-UNK LOCOMOTION: WHEELCHAIR: Activity did not occur on this shift LOCOMOTION: WHEELCHAIR - SCORE: 0-UNK COMPREHENSION: COMPREHENSION - SCORE: 0-UNK EXPRESSION EXPRESSION - SCORE: 0-UNK SOCIAL INTERACTION: SOCIAL INTERACTION - SCORE: 0-UNK PROBLEM SOLVING: PROBLEM SOLVING - SCORE: 0-UNK MEMORY: MEMORY - SCORE: 0-UNK SIGNATURE PANEL: The following modified sections: Eating - Score, Grooming - Score, Bathing - Score, Dressing - Upper Body - Score, Dressing - Lower Body - Score, Toileting - Score, Bladder Management - Score, Bowel Man agement - Score, Transfers: Bed, Chair, Wheelchair - Score, Transfers: Toilet - Score, Transfers: Sonya wer - Score, Transfers: Tub - Score, Locomotion: Walk - Score, Locomotion: Wheelchair - Score, Compre hension - Score, Expression - Score, Social Interaction - Score, Problem Solving - Score, Memory - Sc ore were [electronically] signed by Julian Torres on SatMar 10 2018 14:44:53 GMT-0500 (Central Daylight Time)
[2018-03-10] MEDS: DOCUSATE NA/SENNA CONC 1 TAB PO SCH (20:25)
[2018-03-10] MEDS: ATORVASTATIN 10 MG TAB PO SCH (20:30)
--- NOTE | 2018-03-10 21:23 | R.PN ---
ENCOUNTER DATE AND TIME: 03/10/2018 20:12 (CDT) NAME ANABELA VALDEZ DATE OF : 1955 DATE OF ADMISSION: 03/04/2018 16:50 (CDT) proximal right femur fxCHIEF COMPLAINT: Right hip fracture SUBJECTIVE: Pt denied any Shortness of Breath. Pt denied any depression. Ambulated 4500' with modified independence using a rolling walker. Up and down 15 steps with modifie d independence. Reports 8/10 pain in the right hip, down from 10/10. He is taking [place] 10/325 every four hours. Usin g lidoderm patch daily. Right hip x-ray shows no unexpected findings status post hemiarthroplasty. VITAL SIGNS Temperature: 97.9 F SBP/DBP: 123/76 Pulse: 104 Resp: 16 MEDICATION ALLERGIES: No Known Drug Allergies (NKDA) ENVIRONMENTAL ALLERGIES: - Substance Allergies None Known - Other Allergies None Known NURSING: - Shower allowing shower - Skin care per protocol PRECAUTIONS: - Posterior Hip Precaution No adduction across midline No external rotation No hip flexion >90 degrees No internal rotation No wheel chair propulsion - Weight Bearing Precaution WBAT right LE ACTIVITIES OOB only with supervision THERAPIES: - Occupational Therapy Evaluate and Treat. - Physical Therapy Evaluate and Treat. PHYSICAL EXAM - Gen Alert and awake Lying in bed No apparent distress Oriented to: person, time, and place - Skin RLE incisions intact No abnormalities - Eyes No abnormalities - ENMT No abnormalities - Neck No abnormalities - CVS RRR - Chest Clear - Abd +bowel sounds - GI Soft No abnormalities - No abnormalities - Ext Right hip surgical site has good hemostasis. - MSK No weakenss in the extremities. - Neuro No focal neurological deficits. - Psych No abnormalities ASSESSMENT: Pt. is a 63 yo Right-handed white male.On 02/26/2018 he was admitted to [facility] and underwent emergency surgery for proximal right femur fx (right hip hemiarthroplasty) by Britta Muhammad.Pre-morbidly, Pt. was independent/mod-I in Self-Care, Sphincter Control, Transfers Control, Communication, Social Cognition, and Locomotion; and he had good Sphincter Control.Currently, he has deficits of Transfers Control, Social Cognition, Endurance, Balance, Safety Awareness, Locomotion, a nd Self-Care.Pt. is now referred to [facility] for acute in-patient rehabilita tion in order to maximize patient's functional independence in activities of daily living, strength, ROM, and mobility.- Rehab Goal Patient has realistic goal of being discharged at assistance level 6-Cat to reside at Home with Fam rama/Relatives. MDM/PLAN: - Anterior Hip Precaution No abduction No active extension No adduction across midline No external rotation No hip flexion >90 degrees No internal rotation - Physical Therapy Decreased range of motion - to improve, our physical therapists will perform initial evaluation of p t's status upon admission and devise an individualized program for increasing patient's Range of Jose on. Gait dysfunction - to improve, our physical therapists will perform initial evaluation of pt's statu s upon admission and devise an individualized program for Gait Training, and Wheel Chair mobility Inability to transfer - to improve, our physical therapists will perform initial evaluation of pt's status upon admission and devise an individualized program for Bed mobility Need for home safety evaluation - to improve, our physical therapists will perform initial evaluatio n of pt's status upon admission and devise an individualized program for Home Evaluation Need in caregiver upon discharge - to improve, our physical therapists will perform initial evaluati on of pt's status upon admission and devise an individualized program for Caregiver Training New precaution - to improve, our physical therapists will perform initial evaluation of pt's status upon admission and devise an individualized program for Patient precaution education Poor balance - to improve, our physical therapists will perform initial evaluation of pt's status up on admission and devise an individualized program for Balance Training Poor endurance - to improve, our physical therapists will perform initial evaluation of pt's status upon admission and devise an individualized program for Endurance Training Weakness - to improve, our physical therapists will perform initial evaluation of pt's status upon a dmission and devise an individualized program for Aquatic Therapy, Neuromuscular Reeducation, and Str engthening Achieving independence - to improve, our physical therapists will perform initial evaluation of pt's status upon admission and devise an individualized program for Community Reintegration Activities - Diet - Liquid Texture Continue Regular - Tube Feed Continue N/A - Diet Type Continue Regular - Posterior Hip Precaution No adduction across midline No external rotation No hip flexion >90 degrees No internal rotation No wheel chair propulsion - Occupational Therapy ADL deficits - to improve, our occupation therapists will perform initial evaluation of pt's status upon admission and devise an individualized program for Bathing, Bed mobility, Community Reintegratio n, Cooking, Dressing, Eating, Fine Motor Skills, Grooming, Homemaking, Kitchen Mobility, Laundry, Pat ient Education, Safety Awareness, Splinting - Positioning, Transfers(Toilet, Tub, Shower), and Wheel Chair Management Cognitive deficits - to improve, our occupation therapists will perform initial evaluation of pt's s tatus upon admission and devise an individualized program for Cognition - orientation Need for health care technician - to improve, our occupation therapists will perform initial evaluation of pt's status upon admission and devise an individualized program for Caregiver Training Weakness - to improve, our occupation therapists will perform initial evaluation of pt's status upon admission and devise an individualized program for Aquatic Therapy, Balance, Endurance, UE ROM, and UE strengthening - Weight Bearing Precaution WBAT right LE - Skin care per protocol - Diet - Solid Texture Continue Regular - Shower allowing shower FUNCTIONAL STATUS: UPDATED AT WEEKLY TEAM CONFERENCE - Bladder Same accident frequency: 7-Ind - No accidents in the past 7 days - Bowel Same accident frequency: 7-Ind - No accidents in the past 7 days - Walking Same score based on distance walked: 0(N/A) FUNCTIONAL STATUS: - Self-Care A. Eating Ind B. Grooming Ind C. Bathing Liv D. Dressing - Upper Ind E. Dressing - Lower modA F. Toileting Liv - Sphincter Control G: Bladder control Ind H: Bowel control Ind - Transfers Control I. Bed/Chair/Wheelchair modA J. Toilet modA K. Tub/Shower ADNO - Locomotion L. Walk/Wheelchair (B) Dep M. Stairs ADNO - Communication N. Comprehension (B) Ind O. Expression (B) Ind - Social Cognition P. Social Interaction sup Q. Problem Solving Ind R. Memory Ind - Endurance Poor - Balance Poor - Safety Awareness Fair CURRENT FUNC. DEFICITS: Transfers Control, Social Cognition, Endurance, Balance, Safety Awareness, Locomotion, and Self-Care SIGNATURE PANEL: (CDT)
[2018-03-11] MEDS: HYDROCODONE/APAP 10/325 TAB PO PRN ×4 (01:08→13:37)
--- NOTE | 2018-03-11 04:46 | FAST ---
SHIFT START DATE/TIME: 03/10/2018 19:00 (CDT) SHIFT END DATE/TIME: 03/11/2018 07:00 (CDT) NAME ANABELA VALDEZ DATE OF : 1955 DATE OF ADMISSION: 03/04/2018 16:50 (CDT) PHONE: AGE: 63 [facility], [place]# [id number] GENDER: Male ENCOUNTER PHYSICIAN: Dr. Thiago Hamilton M.D. ADMISSION DIAGNOSIS: - Orthopaedic Disorders 08 - Unilateral Hip Fracture (08.11) proximal right femur fx. EATING: EATING - STEP 1: Does the patient require assistance when eating? Yes. EATING - STEP 2: Does the patient require the assistance of a helper? No, patient only requires an assistive device, O R s/he takes more than reasonable time to eat, OR there is a safety concern, OR s/he requires modifie d food consistency EATING - SCORE: 6-MARISSA GROOMING: Comb/brush hair Oral care Wash, rinse, and dry face Wash, rinse, and dry hands GROOMING - STEP 1: Does the patient require assistance when grooming? Yes. GROOMING - STEP 2: Does the patient require the assistance of a helper? No. The patient only requires an assistive devic e, OR takes more than reasonable time to groom, OR there is a concern for safety as the patient groom s GROOMING - SCORE: 6-MARISSA BATHING: Activity did not occur on this shift BATHING - SCORE: 0-UNK DRESSING - UPPER BODY: Patient is not dressing in public clothing ARTICLES SCORE Total number of steps: 0 DRESSING - UPPER BODY - SCORE: 0-UNK DRESSING - LOWER BODY: Patient is not dressing in public clothing ARTICLES SCORE Total number of steps: 0 DRESSING - LOWER BODY - SCORE: 0-UNK TOILETING: TOILETING - STEP 1: Does the patient require assistance with toileting? Yes. TOILETING - STEP 2: Does the patient require the assistance of a helper? No. TOILETING - SCORE: 6-MARISSA BLADDER MANAGEMENT: BLADDER MANAGEMENT - STEP 1: Does the patient control the bladder completely and intentionally without equipment or devices or med ications, and is always continent? No. BLADDER MANAGEMENT - STEP 2: Does the patient require the assistance of a helper? No, patient requires and independently uses an a ssistive device, such as a urinal, bedpan, bedside commode, catheter, absorbent pad, or collecting de vice BLADDER MANAGEMENT - SCORE: 6-MARISSA BLADDER MANAGEMENT - FREQUENCY OF ACCIDENTS: BLADDER MANAGEMENT(FA) - STEP 1: How many accidents has the patient had during the current shift? 0 BOWEL MANAGEMENT: Activity did not occur on this shift BOWEL MANAGEMENT - SCORE: 7-IND TRANSFERS: BED, CHAIR, WHEELCHAIR: TRANSFERS: BED, CHAIR, WHEELCHAIR - STEP 1: Does the patient require assistance with bed, chair, or wheelchair transfers? Yes. TRANSFERS: BED, CHAIR, WHEELCHAIR - STEP 2: Does the patient require the assistance of a helper? No. Patient only requires an assistive device fo r bed, chair, wheelchair transfers such as a sliding board, grab bar, or brace, OR s/he takes more th an reasonable time, OR there is a safety concern when s/he performs the transfers TRANSFERS: BED, CHAIR, WHEELCHAIR - SCORE: 6-MARISSA TRANSFERS: TOILET: TRANSFERS: TOILET - STEP 1: Does the patient require assistance with toilet transfers? Yes. TRANSFERS: TOILET - STEP 2: Does the patient require the assistance of a helper? No. Patient only requires an assistive device trent ch as a grab bar or special seat, OR s/he takes more than reasonable time to perform toilet transfers , OR there is a safety concern when s/he performs toilet transfers. TRANSFERS: TOILET - SCORE: 6-MARISSA TRANSFERS: SHOWER: Activity did not occur on this shift TRANSFERS: SHOWER - SCORE: 0-UNK TRANSFERS: TUB: Activity did not occur on this shift TRANSFERS: TUB - SCORE: 0-UNK LOCOMOTION: WALK: Activity did not occur on this shift LOCOMOTION: WALK - SCORE: 0-UNK LOCOMOTION: WHEELCHAIR: Activity did not occur on this shift LOCOMOTION: WHEELCHAIR - SCORE: 0-UNK COMPREHENSION: COMPREHENSION: TYPE: Both COMPREHENSION - STEP 1: Does the patient require help to understand complex and abstract ideas (such as current events, finan roni, discharge planning, medical issues, relationships, etc)? No. COMPREHENSION - STEP 2: Does the patient need extra time, require an assistive device (such as glasses, hearing aids, or an a ugmentative communication system), OR does s/he have mild difficulty expressing complex and abstract ideas (including mild dysarthria or mild word-finding problems)? Yes. COMPREHENSION - SCORE: 6-MARISSA EXPRESSION EXPRESSION: TYPE: Both EXPRESSION - STEP 1: Does the patient require help expressing complex and abstract ideas (such as current events, finances , discharge planning, medical issues, relationships, etc)? No. EXPRESSION - STEP 2: Does the patient need extra time, require an assistive device (such as augmentive communication syste m or a communication board), OR does s/he have mild difficulty expressing complex and abstract ideas (including mild dysarthria or mild word-find problems)? No. EXPRESSION - SCORE: 7-IND SOCIAL INTERACTION: SOCIAL INTERACTION - STEP 1: Does the patient require a helper to interact with others in social and therapeutic situations? No. SOCIAL INTERACTION - STEP 2: Does the patient need extra time in social situations, OR does s/he interact with staff, other patien ts, and family members ONLY in structured environments, OR does s/he require medication for social in teraction? Yes, patient needs extra time SOCIAL INTERACTION - SCORE: 6-MARISSA PROBLEM SOLVING: PROBLEM SOLVING - STEP 1: Does the patient need help to solve complex problems such as managing a checking account or confronti ng interpersonal problems? No. PROBLEM SOLVING - STEP 2: Does the patient require extra time to make decisions or solve problems, OR does s/he have slight dif ficulty reading, initiating, or self-correcting in unfamiliar situations? No. PROBLEM SOLVING - SCORE: 7-IND MEMORY: MEMORY - STEP 1: Does the patient need help to remember frequently encountered people, daily routines, and executing r equests? No. MEMORY - STEP 2: Does the patient have slight difficulty recognizing frequently encountered people, daily routines, or executing requests without the need for repetition or using self-initiated or environmental cues to remember? No. MEMORY - SCORE: 7-IND SIGNATURE PANEL: The following modified sections: Eating - Score, Grooming - Score, Bathing - Score, Dressing - Upper Body - Score, Dressing - Lower Body - Score, Toileting - Score, Bladder Management - Score, Bowel Man agement - Score, Transfers: Bed, Chair, Wheelchair - Score, Transfers: Toilet - Score, Transfers: Sonya wer - Score, Transfers: Tub - Score, Locomotion: Walk - Score, Locomotion: Wheelchair - Score, Compre hension - Score, Expression - Score, Social Interaction - Score, Problem Solving - Score, Memory - Sc ore were [electronically] signed by Sriram BowlesNJazzy on SatMar 11 2018 03:48:22 T-0500 ( Central Daylight Time)
[2018-03-11] MEDS: ENOXAPARIN 40 MG/0.4 ML SQ SCH (07:30)
[2018-03-11] MEDS: NICOTINE 21 MG/PAT TD SCH (07:30)
[2018-03-11] MEDS: LIDOCAINE 5% PATCH TOP SCH (07:30)
[2018-03-11] MEDS: PROMOD 30 ML DOSE PO SCH (08:00)
[2018-03-11] MEDS: hydroCHLOROthiazide 12.5 MG CAP PO SCH (08:25)
[2018-03-11] MEDS: PREGABALIN 75 MG CAP PO SCH (08:25)
[2018-03-11] MEDS: AMLODIPINE 5 MG TAB PO SCH (08:26)
[2018-03-11] MEDS: TRAMADOL HCL 50 MG TAB PO PRN (08:26)
[2018-03-11 08:30] VITALS: BP 124/68
[2018-03-11 09:24] VITALS: TEMP 97.6
--- NOTE | 2018-03-11 11:14 | FAST ---
SHIFT START DATE/TIME: 03/11/2018 07:00 (CDT) SHIFT END DATE/TIME: 03/11/2018 19:00 (CDT) NAME ANABELA VALDEZ DATE OF : 1955 DATE OF ADMISSION: 03/04/2018 16:50 (CDT) PHONE: AGE: 63 [facility]# [id number] GENDER: Male ENCOUNTER PHYSICIAN: Dr. hTiago Hamilton M.D. ADMISSION DIAGNOSIS: - Orthopaedic Disorders 08 - Unilateral Hip Fracture (08.11) proximal right femur fx. EATING: EATING - STEP 1: Does the patient require assistance when eating? Yes. EATING - STEP 2: Does the patient require the assistance of a helper? No, patient only requires an assistive device, O R s/he takes more than reasonable time to eat, OR there is a safety concern, OR s/he requires modifie d food consistency EATING - SCORE: 6-MARISSA GROOMING: Comb/brush hair Oral care Wash, rinse, and dry face Wash, rinse, and dry hands GROOMING - STEP 1: Does the patient require assistance when grooming? Yes. GROOMING - STEP 2: Does the patient require the assistance of a helper? No. The patient only requires an assistive devic e, OR takes more than reasonable time to groom, OR there is a concern for safety as the patient groom s GROOMING - SCORE: 6-MARISSA BATHING: Activity did not occur on this shift BATHING - SCORE: 0-UNK DRESSING - UPPER BODY: T-shirt/pullover shirt (four steps) ARTICLES SCORE Total number of steps: 4 DRESSING - UPPER BODY - STEP 1: Does the patient require help when dressing above the waist? Yes. DRESSING - UPPER BODY - STEP 2: Does the patient require the assistance of a helper? No. Patient only requires an assistive device, s uch as a button hook, velcro, or banjo repairer. OR s/he takes more than reasonable time as s/he dresses the upper body. OR there is a concern for safety when s/he dresses the upper body DRESSING - UPPER BODY - SCORE: 6-MARISSA DRESSING - LOWER BODY: Elastic waist pants (three steps) ARTICLES SCORE Total number of steps: 3 DRESSING - LOWER BODY - STEP 1: Does the patient require help when dressing below the waist? Yes. DRESSING - LOWER BODY - STEP 2: Does the patient require the assistance of a helper? No. Patient requires an assistive device such as a banjo repairer. OR s/he takes more than reasonable time as s/he dresses the lower body, OR there is a con cern for safety when s/he dresses the lower body DRESSING - LOWER BODY - SCORE: 6-MARISSA TOILETING: TOILETING - STEP 1: Does the patient require assistance with toileting? Yes. TOILETING - STEP 2: Does the patient require the assistance of a helper? No. TOILETING - SCORE: 6-MARISSA BLADDER MANAGEMENT: BLADDER MANAGEMENT - STEP 1: Does the patient control the bladder completely and intentionally without equipment or devices or med ications, and is always continent? No. BLADDER MANAGEMENT - STEP 2: Does the patient require the assistance of a helper? No, patient requires and independently uses an a ssistive device, such as a urinal, bedpan, bedside commode, catheter, absorbent pad, or collecting de vice BLADDER MANAGEMENT - SCORE: 6-MARISSA BOWEL MANAGEMENT: BOWEL MANAGEMENT - STEP 1: Does the patient control bowels completely and intentionally without equipment devices or medications AND is always continent? No. BOWEL MANAGEMENT - STEP 2: Does the patient require the assistance of a helper? No, patient requires and manages independently a n assistive device such as a bedpan, bedside commode, absorbent pad, incontinent device, or collectin g device BOWEL MANAGEMENT - SCORE: 6-MARISSA TRANSFERS: BED, CHAIR, WHEELCHAIR: TRANSFERS: BED, CHAIR, WHEELCHAIR - STEP 1: Does the patient require assistance with bed, chair, or wheelchair transfers? Yes. TRANSFERS: BED, CHAIR, WHEELCHAIR - STEP 2: Does the patient require the assistance of a helper? No. Patient only requires an assistive device fo r bed, chair, wheelchair transfers such as a sliding board, grab bar, or brace, OR s/he takes more th an reasonable time, OR there is a safety concern when s/he performs the transfers TRANSFERS: BED, CHAIR, WHEELCHAIR - SCORE: 6-MARISSA TRANSFERS: TOILET: TRANSFERS: TOILET - STEP 1: Does the patient require assistance with toilet transfers? Yes. TRANSFERS: TOILET - STEP 2: Does the patient require the assistance of a helper? No. Patient only requires an assistive device trent ch as a grab bar or special seat, OR s/he takes more than reasonable time to perform toilet transfers , OR there is a safety concern when s/he performs toilet transfers. TRANSFERS: TOILET - SCORE: 6-MARISSA TRANSFERS: SHOWER: Activity did not occur on this shift TRANSFERS: SHOWER - SCORE: 0-UNK TRANSFERS: TUB: Activity did not occur on this shift TRANSFERS: TUB - SCORE: 0-UNK LOCOMOTION: WALK: Activity did not occur on this shift LOCOMOTION: WALK - SCORE: 0-UNK LOCOMOTION: WHEELCHAIR: Activity did not occur on this shift LOCOMOTION: WHEELCHAIR - SCORE: 0-UNK COMPREHENSION: COMPREHENSION - SCORE: 0-UNK EXPRESSION EXPRESSION - SCORE: 0-UNK SOCIAL INTERACTION: SOCIAL INTERACTION - SCORE: 0-UNK PROBLEM SOLVING: PROBLEM SOLVING - SCORE: 0-UNK MEMORY: MEMORY - SCORE: 0-UNK SIGNATURE PANEL: The following modified sections: Eating - Score, Grooming - Score, Bathing - Score, Dressing - Upper Body - Score, Dressing - Lower Body - Score, Toileting - Score, Bladder Management - Score, Bowel Man agement - Score, Transfers: Bed, Chair, Wheelchair - Score, Transfers: Toilet - Score, Transfers: Sonya wer - Score, Transfers: Tub - Score, Locomotion: Walk - Score, Locomotion: Wheelchair - Score, Compre hension - Score, Expression - Score, Social Interaction - Score, Problem Solving - Score, Memory - Sc ore were [electronically] signed by Julian Torres on SatMar 11 2018 10:16:10 T-0500 (Central Daylight Time)
--- NOTE | 2018-03-11 16:53 | FAST ---
ENCOUNTER DATE AND TIME: 03/10/2018 08:00 (CDT) NAME ANABELA VALDEZ DATE OF : 1955 DATE OF ADMISSION: 03/04/2018 16:50 (CDT) PHONE: AGE: 63 N# [id number] GENDER: Male ENCOUNTER PHYSICIAN: Dr. Thiago Hamilton M.D. ADMISSION DIAGNOSIS: - Orthopaedic Disorders 08 - Unilateral Hip Fracture (08.11) proximal right femur fx. EATING: Activity did not occur on this shift EATING - SCORE: 0-UNK GROOMING: Activity did not occur on this shift GROOMING - SCORE: 0-UNK BATHING: Activity did not occur on this shift BATHING - SCORE: 0-UNK DRESSING - UPPER BODY: Activity did not occur on this shift Patient is not dressing in public clothing ARTICLES SCORE Total number of steps: 0 DRESSING - UPPER BODY - SCORE: 0-UNK DRESSING - LOWER BODY: Activity did not occur on this shift Patient is not dressing in public clothing ARTICLES SCORE Total number of steps: 0 DRESSING - LOWER BODY - SCORE: 0-UNK TOILETING: Activity did not occur on this shift TOILETING - SCORE: 0-UNK BLADDER MANAGEMENT: Activity did not occur on this shift BLADDER MANAGEMENT - SCORE: 7-IND BOWEL MANAGEMENT: Activity did not occur on this shift BOWEL MANAGEMENT - SCORE: 7-IND TRANSFERS: BED, CHAIR, WHEELCHAIR: TRANSFERS: BED, CHAIR, WHEELCHAIR - STEP 1: Does the patient require assistance with bed, chair, or wheelchair transfers? Yes. TRANSFERS: BED, CHAIR, WHEELCHAIR - STEP 2: Does the patient require the assistance of a helper? No. Patient only requires an assistive device fo r bed, chair, wheelchair transfers such as a sliding board, grab bar, or brace, OR s/he takes more th an reasonable time, OR there is a safety concern when s/he performs the transfers TRANSFERS: BED, CHAIR, WHEELCHAIR - SCORE: 6-MARISSA TRANSFERS: TOILET: Activity did not occur on this shift TRANSFERS: TOILET - SCORE: 0-UNK TRANSFERS: SHOWER: Activity did not occur on this shift TRANSFERS: SHOWER - SCORE: 0-UNK TRANSFERS: TUB: Activity did not occur on this shift TRANSFERS: TUB - SCORE: 0-UNK LOCOMOTION: WALK: LOCOMOTION: WALK - STEP 1: Does the patient need help to walk 150 feet? No. LOCOMOTION: WALK - STEP 2: Does the patient need an assistive device (such as an orthosis, prosthesis, crutches, or walker) to g o 150 feet, OR does s/he take more than reasonable time, OR is there a concern for safety? Yes, the p atient needs an assistive device LOCOMOTION: WALK - SCORE: 6-MARISSA LOCOMOTION: WHEELCHAIR: Activity did not occur on this shift LOCOMOTION: WHEELCHAIR - SCORE: 0-UNK LOCOMOTION: STAIRS: LOCOMOTION: STAIRS - STEP 1: Does the patient need help to go up and down 12 to 14 stairs? No. LOCOMOTION: STAIRS - STEP 2: Does the patient require an assistive device - such as handrails or cane - to go up and down one flig ht of stairs, OR does s/he take more than reasonable time, OR is there a concern for safety? Yes, the patient requires an assistive device LOCOMOTION: STAIRS - SCORE: 6-MARISSA COMPREHENSION: COMPREHENSION - SCORE: 0-UNK EXPRESSION EXPRESSION - SCORE: 0-UNK SOCIAL INTERACTION: SOCIAL INTERACTION - SCORE: 0-UNK PROBLEM SOLVING: PROBLEM SOLVING - SCORE: 0-UNK MEMORY: MEMORY - SCORE: 0-UNK SIGNATURE PANEL: The following modified sections: Transfers: Bed, Chair, Wheelchair - Score, Transfers: Toilet - Score , Locomotion: Walk - Score, Locomotion: Wheelchair - Score, Locomotion: Stairs - Score were [nicolas isaacs] signed by Macho Correa PTA on SatMar 11 2018 15:54:50 GMT-0500 (Central Daylight Time)
== END 2018-03-11 13:45 | disposition home or self-care (01) | DRG 561 ==
LOC: 5TH 16:47
PROVIDERS: ADMIT Psychiatry & Neurology Neurology with Special Qualifications in Child Neurology; ATTEND Psychiatry & Neurology Neurology with Special Qualifications in Child Neurology
DX: S72.001D Fracture of unspecified part of neck of right femur, subsequent encounter for closed fracture with routine healing (principal); I10 Essential (primary) hypertension; F17.200 Nicotine dependence, unspecified, uncomplicated; Z86.73 Personal history of transient ischemic attack (TIA), and cerebral infarction without residual deficits; Z28.21 Immunization not carried out because of patient refusal
CPT/HCPCS: 36415; 80048; 81001; 82040; 83735; 84134; 85025; 87086; 87088; 90670; J1650

== ENCOUNTER 2020-12-08 06:39 | Emergency (ER) | payer OTHER ==
--- OUTSIDE RECORDS SUMMARY | 2020-12-08 06:41 | XMS REPORT | Continuity of Care Document ---
:1955 Author Organization [facility] t Address [address] [place] [address] [address] Care Team Providers Name Role Phone Ana Maria Vazquez DO Attending Clinician Problems This patient has no known problems. Allergies, Adverse Reactions, Alerts This patient has no known allergies or adverse reactions. Medications This patient has no known medications. Procedures This patient has no known procedures. Encounters Start End Encounter Admission Attending Care Care Encounter Source Date/Time Date/Time Type Type Clinicians Facility Department ID 2019-07-13 2019-07-13 Emergency [facility] [id number] 09:08:14 12:38:00 Ana Maria Jenkins [id number] [place] [id number] [place] [id number] Results This patient has no known results.
[2020-12-08] MEDS ORDERED: IPRATROPIUM BROM 0.5MG/2.5ML ONE (07:55)
[2020-12-08] MEDS ORDERED: ALBUTEROL 2.5 MG/3 ML NEB SOL ONE (07:55)
--- NOTE | 2020-12-08 08:06 | RAD REPORT ---
EXAM DESCRIPTION: Griselda Single View12/08/2020 7:54 am CLINICAL HISTORY: Cough COMPARISON: 2017 FINDINGS: The lungs appear clear of acute infiltrate. The heart is normal size IMPRESSION: No acute abnormalities displayed
[2020-12-08 10:34] LABS: SARS-COV-2 RT PCR NEGATIVE (NEGATIVE)
--- NOTE | 2020-12-08 10:41 | ER ---
Nurse's Notes [facility] Name: Aj Cosme Jr Age: 65 yrs Sex: Male : 1955 Arrival Date: 12/08/2020 Time: 06:42 Bed 24 Private MD: Diagnosis: Cough;COPD Exacerbation Presentation: 12/08 06:54 Chief complaint: Patient states: chest cold x 1 week with productive cough, went to PCP em gave z-pack, symptoms only got better a little bit, denies fever, N/V/D. Coronavirus screen: Client denies travel out of the [place] in the last 14 days. Ebola Screen: Patient negative for fever greater than or equal to 101.5 degrees Fahrenheit, and additional compatible Ebola Virus Disease symptoms Patient denies exposure to infectious person. Patient denies travel to an Ebola-affected area in the 21 days before illness onset. No symptoms or risks identified at this time. Initial Sepsis Screen: Does the patient meet any 2 criteria? Does the patient have a suspected source of infection? Yes: Productive cough/pneumonia. Risk Assessment: Do you want to hurt yourself or someone else? Patient reports no desire to harm self or others. Onset of symptoms was December 01, 2020. 06:54 Method Of Arrival: Ambulatory em 06:54 Acuity: JEREMY 3 em Historical: - Allergies: 06:57 NKA; em - PMHx: 06:57 Hypertension; em - PSHx: 06:57 R elbow; em - Immunization history:: Adult Immunizations up to date. - Social history:: Smoking status: Patient reports the use of cigarette tobacco products, smokes one pack cigarettes per day. Screenin:02 Abuse screen: Denies threats or abuse. Nutritional screening: No deficits noted. rb3 Tuberculosis screening: No symptoms or risk factors identified. Fall Risk None identified. Assessment: 07:02 General: Appears in no apparent distress. comfortable, Behavior is calm, cooperative. rb3 Pain: Denies pain. Neuro: Level of Consciousness is awake, alert, obeys commands, Oriented to person, place, time, situation. Cardiovascular: Patient's skin is warm and dry. Respiratory: Airway is patent Respiratory effort is even, unlabored, Respiratory pattern is regular, symmetrical. GI: No signs and/or symptoms were reported involving the gastrointestinal system. : No signs and/or symptoms were reported regarding the genitourinary system. 07:02 General: Denies fever. rb3 08:00 Reassessment: Patient appears in no apparent distress at this time. No changes from rb3 previously documented assessment. 09:00 Reassessment: Patient appears in no apparent distress at this time. Patient and/or rb3 family updated on plan of care and expected duration. Pain level reassessed. Patient is alert, oriented x 3, equal unlabored respirations, skin warm/dry/pink. 10:00 Reassessment: Patient appears in no apparent distress at this time. No changes from rb3 previously documented assessment. Pt. reports that he is feeling better. 11:00 Reassessment: Patient appears in no apparent distress at this time. Patient and/or rb3 family updated on plan of care and expected duration. Pain level reassessed. Patient is alert, oriented x 3, equal unlabored respirations, skin warm/dry/pink. 11:28 Reassessment: Discharge pending due to Dr. Monterroso needing to speak with the pt. about rb3 results. Vital Signs: 06:54 BP 145 / 90; Pulse 92; Resp 18; Temp 98.2(O); Pulse Ox 99% on R/A; Weight 85.73 kg; em Height 6 ft. 2 in. (187.96 cm); Pain 0/10; 08:00 BP 105 / 82; Pulse 74; Resp 20; Pulse Ox 100% ; rb3 09:00 BP 124 / 68; Pulse 83; Resp 19; Pulse Ox 98% on R/A; rb3 10:00 BP 105 / 82; Pulse 74; Resp 19; Pulse Ox 100% ; rb3 11:00 BP 118 / 78; Pulse 69; Resp 18; Pulse Ox 97% ; rb3 06:54 Body Mass Index 24.27 (85.73 kg, 187.96 cm) em ED Course: 06:42 Patient arrived in ED. bp1 06:56 Triage completed. em 06:57 Arm band placed on. em 07:02 Patient has correct armband on for positive identification. Bed in low position. Call rb3 light in reach. Side rails up X 1. Pulse ox on. NIBP on. 07:07 Katina Rodriguez, CHARLES is Primary Nurse. rb3 07:14 Saurabh Monterroso MD is Attending Physician. kdr 07:54 XRAY Chest (1 view) In Process Unspecified. EDMS 11:41 No provider procedures requiring assistance completed. Patient did not have IV access rb3 during this emergency room visit. Administered Medications: 07:48 Drug: Albuterol - atroVENT (3:1) (2.5 mg - 0.5 mg) 3 ml Route: Nebulizer; rb3 08:30 Follow up: Response: No adverse reaction; Marked relief of symptoms rb3 Outcome: 10:41 Discharge ordered by . kdr 11:41 Discharged to home ambulatory. rb3 11:41 Condition: stable 11:41 Discharge instructions given to patient, Instructed on discharge instructions, follow up and referral plans. medication usage, Demonstrated understanding of instructions, follow-up care, medications, Prescriptions given X 2. 11:42 Patient left the ED. rb3 Signatures: Dispatcher [employer] EDOH Saurabh Monterroso MD MD kdr Munoz, Edgar, CHARLES RN Renetta Henao Rebecca, RN RN rb3
--- NOTE | 2020-12-08 10:41 | EDPHYS ---
Physician Documentation [facility] Name: Aj Cosme Jr Age: 65 yrs Sex: Male : 1955 Arrival Date: 12/08/2020 Time: 06:42 Bed 24 Private MD: ED Physician Saurabh Monterroso HPI: 12/08 07:24 This 65 yrs old Black Male presents to ER via Ambulatory with complaints of Cough. kdr 07:24 The patient or guardian reports cough, with productive sputum, that is white. Onset: kdr The symptoms/episode began/occurred gradually, 8 day(s) ago. Severity of symptoms: At their worst the symptoms were mild, in the emergency department the symptoms are unchanged. Modifying factors: The symptoms are alleviated by nothing, the symptoms are aggravated by nothing. Associated signs and symptoms: Pertinent negatives: chest pain, diarrhea, ear ache, fever, nausea, rhinorrhea, sore throat, vomiting. The patient has not experienced similar symptoms in the past. The patient has been recently seen by a physician: the patient's primary care provider, 4 day(s) ago, Given Z-pack but not any better. Historical: - Allergies: 06:57 NKA; em - PMHx: 06:57 Hypertension; em - PSHx: 06:57 R elbow; em - Immunization history:: Adult Immunizations up to date. - Social history:: Smoking status: Patient reports the use of cigarette tobacco products, smokes one pack cigarettes per day. ROS: 07:24 Constitutional: Negative for fever, chills, and weight loss, Eyes: Negative for injury, kdr pain, redness, and discharge, ENT: Negative for injury, pain, and discharge, Neck: Negative for injury, pain, and swelling, Cardiovascular: Negative for chest pain, palpitations, and edema, Abdomen/GI: Negative for abdominal pain, nausea, vomiting, diarrhea, and constipation, Back: Negative for injury and pain, : Negative for injury, bleeding, discharge, and swelling, MS/Extremity: Negative for injury and deformity, Skin: Negative for injury, rash, and discoloration, Neuro: Negative for headache, weakness, numbness, tingling, and seizure activity. Psych: Negative for depression, anxiety, suicide ideation, homicidal ideation, and hallucinations, Allergy/Immunology: Negative for hives, rash, and allergies, Endocrine: Negative for neck swelling, polydipsia, polyuria, polyphagia, and marked weight changes, Hematologic/Lymphatic: Negative for swollen nodes, abnormal bleeding, and unusual bruising. 07:24 Respiratory: Positive for cough, with white sputum, shortness of breath, at rest. wheezing, inspiratory. Exam: 07:24 Constitutional: This is a well developed, well nourished patient who is awake, alert, kdr and in no acute distress. Head/Face: Normocephalic, atraumatic. Eyes: Pupils equal round and reactive to light, extra-ocular motions intact. Lids and lashes normal. Conjunctiva and sclera are non-icteric and not injected. Cornea within normal limits. Periorbital areas with no swelling, redness, or edema. Neck: Trachea midline, no thyromegaly or masses palpated, and no cervical lymphadenopathy. Supple, full range of motion without nuchal rigidity, or vertebral point tenderness. No Meningismus. Chest/axilla: Normal chest wall appearance and motion. Nontender with no deformity. No lesions are appreciated. Cardiovascular: Regular rate and rhythm with a normal S1 and S2. No gallops, murmurs, or rubs. Normal PMI, no JVD. No pulse deficits. Abdomen/GI: Soft, non-tender, with normal bowel sounds. No distension or tympany. No guarding or rebound. No evidence of tenderness throughout. Back: No spinal tenderness. No costovertebral tenderness. Full range of motion. Skin: Warm, dry with normal turgor. Normal color with no rashes, no lesions, and no evidence of cellulitis. MS/ Extremity: Pulses equal, no cyanosis. Neurovascular intact. Full, normal range of motion. Neuro: Awake and alert, GCS 15, oriented to person, place, time, and situation. Cranial nerves II-XII grossly intact. Motor strength 5/5 in all extremities. Sensory grossly intact. Cerebellar exam normal. Normal gait. Psych: Awake, alert, with orientation to person, place and time. Behavior, mood, and affect are within normal limits. 07:24 Respiratory: the patient does not display signs of respiratory distress, Respirations: normal, Breath sounds: rales, that are mild, are scattered, are heard diffusely, rhonchi, that are mild, are scattered, are heard diffusely, wheezing: expiratory that is mild, is scattered, is heard diffusely. Vital Signs: 06:54 BP 145 / 90; Pulse 92; Resp 18; Temp 98.2(O); Pulse Ox 99% on R/A; Weight 85.73 kg; em Height 6 ft. 2 in. (187.96 cm); Pain 0/10; 08:00 BP 105 / 82; Pulse 74; Resp 20; Pulse Ox 100% ; rb3 09:00 BP 124 / 68; Pulse 83; Resp 19; Pulse Ox 98% on R/A; rb3 10:00 BP 105 / 82; Pulse 74; Resp 19; Pulse Ox 100% ; rb3 11:00 BP 118 / 78; Pulse 69; Resp 18; Pulse Ox 97% ; rb3 06:54 Body Mass Index 24.27 (85.73 kg, 187.96 cm) em MDM: 07:24 Data reviewed: vital signs, nurses notes, radiologic studies. Counseling: I had a kdr detailed discussion with the patient and/or guardian regarding: the historical points, exam findings, and any diagnostic results supporting the discharge/admit diagnosis, radiology results, the need for outpatient follow up. 10:41 Patient medically screened. kdr 12/08 07:00 Order name: XRAY Chest (1 view); Complete Time: 08:23 rn 12/08 10:34 Order name: COVID-19/FLU A+B; Complete Time: 10:39 EDMS Administered Medications: 07:48 Drug: Albuterol - atroVENT (3:1) (2.5 mg - 0.5 mg) 3 ml Route: Nebulizer; rb3 08:30 Follow up: Response: No adverse reaction; Marked relief of symptoms rb3 Disposition: 12/08/20 10:41 Discharged to Home. Impression: Cough, COPD Exacerbation. - Condition is Stable. - Discharge Instructions: Cough, Adult, [id number], Chronic Obstructive Pulmonary Disease Exacerbation, [id number]. - Prescriptions for Prednisone 20 mg Oral Tablet - take 1 tablet by ORAL route once daily for 5 days; 5 tablet. Albuterol Sulfate 2.5 mg /3 mL (0.083 %) Inhalation Solution for Nebulization - inhale 1 unit by NEBULIZATION route every 4-6 hours As needed; 2 box. - Medication Reconciliation Form, Thank You Letter form. - Follow up: Private Physician; When: 2 - 3 days; Reason: If symptoms return, Further diagnostic work-up, Recheck today's complaints, Continuance of care, Re-evaluation by your physician. - Problem is an ongoing problem. - Symptoms have improved. Signatures: Dispatcher [employer] [facility] Saurabh Monterroso MD MD kdr Munoz, Edgar, RN RN em Katina Rodriguez, RN RN rb3 Corrections: (The following items were deleted from the chart) 09:48 07:24 Influenza Screen (A \T\ B)+BA.LAB.BRZ ordered. [facility] 09:48 07:24 CORONAVIRUS+MR.LAB.BRZ ordered. [facility] 11:42 10:41 12/08/2020 10:41 Discharged to Home. Impression: Cough; COPD Exacerbation. rb3 Condition is Stable. Forms are Medication Reconciliation Form, Thank You Letter, Antibiotic Education, Prescription Opioid Use. Follow up: Private Physician; When: 2 - 3 days; Reason: If symptoms return, Further diagnostic work-up, Recheck today's complaints, Continuance of care, Re-evaluation by your physician. Problem is an ongoing problem. Symptoms have improved. kdr
[2020-12-08 11:50] VITALS: TEMP 98.2
[2020-12-08 11:55] VITALS: BP 118/78; O2SAT 97
== END 2020-12-08 11:42 | disposition home or self-care (01) ==
LOC: ER 06:39
DX: J44.1 Chronic obstructive pulmonary disease with (acute) exacerbation (principal); Z20.822 Contact with and (suspected) exposure to COVID-19; I10 Essential (primary) hypertension; F17.210 Nicotine dependence, cigarettes, uncomplicated
CPT/HCPCS: 0240U; 71045; 99284

== ENCOUNTER 2021-11-20 07:04 | Emergency (ER) | payer OTHER ==
--- OUTSIDE RECORDS SUMMARY | 2021-11-20 07:05 | XMS REPORT | Continuity of Care Document ---
:1955 Author Organization [facility] t Address 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 00:00: [place] 00 [facility] Allergies, Adverse Reactions, Alerts Allergy Allergy Status Severity Reaction(s) Onset Inactive Treating Comm ents Source Name Type Date Date Clinician NO KNOWN Drug Active Univers ALLERGIE Class ity of S [facility] Social History Social Habit Start Date Stop Date Quantity Comments Source Sex Assigned At Uni versity [facility] Smoking Status Start Date Stop Date Source Unknown if ever smoked Universit y [facility] Medications Ordered Filled Start Stop Current Ordering Indication Dosage Frequency Signature Comments Components Source Medication Medication Date Date Medication? Clinician (SIG) Name Name predniSONE 2019- No [id number] 50mg Take 5 Univers 10 mg 07-14 09-08 tablets by ity of tablet 00:00: 04:59 mouth [place] 00 :00 daily for Medical 4 days. Branch albuterol 2019- No 2.5mg 2.5 mg, Uni vers (PROVENTIL) 07-13 Inhalation i ty of 2.5 mg /3 16:45: 16:40 [place] (0.083 00 :00 dose, Mon Medic al %) 07/13/19 at [place] nebulizer 1145, STAT solution 2.5 mg albuterol 2019- No 5mg 5 mg, Univer s (PROVENTIL) 07-13 Inhalation i ty of 2.5 mg /3 15:45: 15:52 , [place]CE[place] (0.083 00 :00 dose, Mon Medic al %) 07/13/19 at [place] nebulizer 1045, STAT solution 5 mg predniSONE 2019- No 50mg 50 mg, Univ ers (DELTASONE) 07-13 Oral, ity of tablet 50 15:45: 14:44 ONCE, [place] mg [place] :00 dose, [facility] Medical 07/13/19 at [place] 1045, ALON ipratropium 2019- No .5mg 0.5 mg, Un [place] (ATROVENT) 07-13 Inhalation it y of 0.02 % 14:45: 14:45 , ONCE, 1 [place] nebulizer 00 :00 dose, Mon Medic al solution 07/13/19 at [place] 0.5 mg 0945, ALON albuterol 2019- No 2.5mg 2.5 mg, Uni vers (PROVENTIL) 07-13 Inhalation i ty of 2.5 mg /3 14:45: 14:45 , ONCE[place] 1 [place] (0.083 00 :00 dose, Mon Medic al %) 07/13/19 at [place] nebulizer 0945, STAT solution 2.5 mg albuterol Yes [id number] 2.5mg Inhale 3 Univers 2.5 mg /3 07-13 mL every 4 ity of mL (0.083 00:00: (four) [place] %) 00 hours as Medical nebulizer needed for Bran ch solution Wheezing or Shortness of Breath. May also nebulize one extra every 6 hours. IBUPROFEN Yes None Univers ORAL 5-20 Entered ity of 12:58: [place] 14 [facility] NAPROXEN Yes 1 tab PO Unive rs 500 MG ORAL 5-20 TID x 4 ity o f TBEC 00:00: [place], then [place] 00 TID PRN Medical Branch HYDROCODONE 2007-0 Yes Take one [place] -ACETAMINOP 5-20 by mouth ity of HEN 5-325 00:00[place] 4 [place]AL TAB 00 6 hours Medic al as needed Branch for pain. CYCLOBENZAP Yes Take one [place] RINE 5 MG 5-20 tablet by ity o f ORAL TAB 00:00: mouth [place] 00 three Medical times a Branch day Vital Signs Vital Name Observation Time Observation Value Comments Source Respiratory rate 2019-07-13 16:56:00 20 /min [facility] in 2019-07-13 16:56:00 100 /min [facility] Arterial blood by [facility] Pulse oximetry Branch Systolic blood 2019-07-13 16:13:00 110 mm[Hg] [facility] Diastolic blood 2019-07-13 16:13:00 84 mm[Hg] [facility]ive [facility] Heart rate 2019-07-13 16:00:00 78 /min [facility] Body temperature 2019-07-13 14:10:00 36.61 [facility] Body weight 2019-07-13 14:10:00 79.379 kg [facility] Respiratory rate 2019-07-13 16:56:00 20 /min [facility] Oxygen saturation in 2019-07-13 16:56:00 100 /min University of Arterial blood by [facility] Pulse oximetry Branch Systolic blood 2019-07-13 16:13:00 110 mm[Hg] Univer sity [facility] Diastolic blood 2019-07-13 16:13:00 84 mm[Hg] Unive rsity [facility] Heart rate 2019-07-13 16:00:00 78 /min [facility] Body temperature 2019-07-13 14:10:00 36.61 Abiola [facility] Body weight 2019-07-13 14:10:00 79.379 kg [facility] Procedures Procedure Date / Time Performed Performing Clinician Sourc e XR CHEST 2 VW 2019-07-13 14:42:35 [facility] Encounters Start End Encounter Admission Attending Care Care Encounter Source Date/Time Date/Time Type Type Clinicians Facility Department ID 2021-11-16 2021-11-16 ambulatory [facility] [id number] [facility] 2021-10-31 2021-10-31 ambulatory [facility] [id number] [facility] 2021-10-30 2021-10-30 ambulatory [facility] [id number] [facility] 2021-09-14 2021-09-14 ambulatory [facility] [id number] [facility] 2021-08-15 2021-08-15 Outpatient [facility] [id number] [facility] 2021-08-10 2021-08-10 Outpatient [facility] [id number] [facility] 2019-07-13 2019-07-13 [facility] [id number] 09:08:14 12:38:00 Ana Maria Jenkins [id number] [place] [id number] [place] [id number] [facility] 2019-07-13 2019-07-13 [facility] [id number] [facility] 09:08:14 12:38:00 Ana Maria Jenkins [id number] [facility] [id number] [facility] [id number] [address] 2019-07-13 2019-07-13 Emergency X [facility] ERT [id number] Univers 09:08:14 12:38:00 ANA MARIA beaver [facility] Results Test Description Test Time Test Comments Results Result Sourc e Comments XR CHEST 2 VW No acute University of cardiopulmonary [facility] 14:51:13 process. I, Ricardo Echevarria MD., have reviewed this study and agree with the abovereport.PROCEDUR E: XR CHEST 2 VW CLINICAL INDICATION: cough COMPARISON: None FINDINGS: The lungs are well-expanded and clear except for left basilar subsegmentalatelecta sis. No focal consolidation, pleural effusion, or pneumothorax. The cardiac silhouette is normal in size. No acute osseous abnormality. [facility], Radiant Results Inft User - 07/13/2019 9:53 AM CDTPROCEDURE: XR CHEST 2 VWCLINICAL INDICATION: cough COMPARISON: NoneFINDINGS:The lungs are well-expanded and clear except for left basilar subsegmentalatelecta sis. No focal consolidation, pleural effusion, or pneumothorax.The cardiac silhouette is normal in size. No acute osseous abnormality. IMPRESSIONNo acute cardiopulmonary process.I, Eliazar Dela Cruz MD., have reviewed this study and agree with the abovereport.
--- NOTE | 2021-11-20 07:52 | RAD REPORT ---
EXAM DESCRIPTION: Griselda Single View11/20/2021 7:26 am CLINICAL HISTORY: Cough COMPARISON: November 2020 FINDINGS: The lungs appear clear of acute infiltrate. The heart is normal size IMPRESSION: No acute abnormalities displayed
[2021-11-20 09:36] LABS: SARS-COV-2 RT PCR POSITIVE (NEGATIVE)
--- NOTE | 2021-11-20 09:51 | ER ---
Nurse's Notes [facility] Name: Aj Cosme Jr Age: 66 yrs Sex: Male : 1955 Arrival Date: 11/20/2021 Time: 07:06 Bed 23 Private MD: Diagnosis: COPD/ Chronic obstructive pulmonary disease, unspecified;SARS-associated coronavirus as the cause of diseases classified elsewhere Presentation: 11/20 07:12 Chief complaint: Patient states: Having a cough and congestion for three days. ll3 Coronavirus screen: Vaccine status: Patient reports receiving the 2nd dose of the covid vaccine. Ebola Screen: No symptoms or risks identified at this time. Initial Sepsis Screen: Does the patient meet any 2 criteria? No. Patient's initial sepsis screen is negative. Does the patient have a suspected source of infection? Yes: Productive cough/pneumonia. Risk Assessment: Do you want to hurt yourself or someone else? Patient reports no desire to harm self or others. Onset of symptoms was November 17, 2021. 07:12 Method Of Arrival: Ambulatory ll3 07:12 Acuity: JEREMY 4 ll3 Triage Assessment: 07:16 General: Appears in no apparent distress. uncomfortable, Behavior is calm, cooperative. ll3 Historical: - Allergies: 07:16 NKA; ll3 - Home Meds: 07:16 unknown BP medication [Active]; ll3 - PMHx: 07:16 Hypertension; ll3 - Immunization history:: Client reports receiving the 2nd dose of the Covid vaccine. - Social history:: Smoking status: Patient reports the use of cigarette tobacco products, smokes one pack cigarettes per day. - Family history:: not pertinent. - Hospitalizations: : No recent hospitalization is reported. Screenin:23 Abuse screen: Denies threats or abuse. Denies injuries from another. Nutritional ic1 screening: No deficits noted. Tuberculosis screening: No symptoms or risk factors identified. Fall Risk None identified. Exposure risk/Travel Screening: None identified. Assessment: 07:23 General: Appears in no apparent distress. comfortable. Pain: Denies pain. Neuro: No ic1 deficits noted. Cardiovascular: No deficits noted. Respiratory: Reports cough that is productive, since last night along w some congestion. Denies cp or sob. Has hx of COPD. States gf was sick x 1 week but tested neg for covid. GI: No deficits noted. : No deficits noted. EENT: No deficits noted. Derm: No deficits noted. Musculoskeletal: No deficits noted. 07:25 Reassessment: Pt swabbed for covid and placed into box for lab. ic1 Vital Signs: 07:12 Temp 98.3; Weight 79.38 kg (R); Height 6 ft. 2 in. (187.96 cm) (R); ll3 07:23 BP 141 / 81; Pulse 88; Resp 20; Pulse Ox 97% on R/A; ic1 10:16 BP 122 / 74; Pulse 81; Resp 20; Pulse Ox 99% on R/A; ic1 07:12 Body Mass Index 22.47 (79.38 kg, 187.96 cm) ll3 ED Course: 07:06 Patient arrived in ED. ds1 07:09 Kyle Chen MD is Attending Physician. rn 07:15 Triage completed. ll3 07:16 Arm band placed on. ll3 07:17 Patient placed in an exam room. ll3 07:23 Patient has correct armband on for positive identification. Bed in low position. Call ic1 light in reach. 07:26 XRAY Chest (1 view) In Process Unspecified. EDMS 07:32 COVID-19/FLU A+B (Document "Date of Onset" if Symptomatic) Sent. ic1 10:42 No provider procedures requiring assistance completed. ap3 Administered Medications: No medications were administered Outcome: 09:51 Discharge ordered by . rn 10:16 Discharged to home ambulatory, with family. ic1 10:16 Condition: stable 10:16 Discharge instructions given to patient, Instructed on discharge instructions, follow up and referral plans. Demonstrated understanding of instructions, follow-up care, medications, Prescriptions given X 3. 10:42 Patient left the ED. ap3 Signatures: Dispatcher [employer] [facility] Karo Crawford ds1 Kyle Chen MD MD rn Prokisch, Amanda RN CHARLES ap3 German Michelle RN RN ll3 Yohana Varela RN RN ic1 Corrections: (The following items were deleted from the chart) 07:07 07:06 Chief complaint: ll3 ll3
--- NOTE | 2021-11-20 09:52 | EDPHYS ---
Physician Documentation [facility] Name: Aj Cosme Jr Age: 66 yrs Sex: Male : 1955 Arrival Date: 11/20/2021 Time: 07:06 Bed 23 Private MD: ED Physician Kyle Chen HPI: 11/20 07:15 This 66 yrs old Black Male presents to ER via Unassigned with complaints of cough. rn 07:15 The patient or guardian reports cough, that is intermittent, described as mild, with rn productive sputum, that is yellow. Onset: The symptoms/episode began/occurred 3 day(s) ago. Severity of symptoms: At their worst the symptoms were mild, in the emergency department the symptoms are unchanged. Modifying factors: The symptoms are alleviated by nothing, the symptoms are aggravated by nothing. Associated signs and symptoms: Pertinent positives: rhinorrhea, Pertinent negatives: chest pain, fever, vomiting. The patient has experienced similar episodes in the past. The patient has not recently seen a physician. Pt reports productive cough for 3 days, states girlfriend had "cold" recently, seen by pcp, was COVID neg per report. Now patient with cough, productive of yellow sputum. No fever. No hemoptysis. . Historical: - Allergies: 07:16 NKA; ll3 - Home Meds: 07:16 unknown BP medication [Active]; ll3 - PMHx: 07:16 Hypertension; ll3 - Immunization history:: Client reports receiving the 2nd dose of the Covid vaccine. - Social history:: Smoking status: Patient reports the use of cigarette tobacco products, smokes one pack cigarettes per day. - Family history:: not pertinent. - Hospitalizations: : No recent hospitalization is reported. ROS: 07:15 Constitutional: Negative for fever, chills, and weight loss, Eyes: Negative for injury, rn pain, redness, and discharge, ENT: Negative for injury, pain, and discharge, Neck: Negative for injury, pain, and swelling, Cardiovascular: Negative for chest pain, palpitations, and edema, Respiratory: + cough, neg for sob Abdomen/GI: Negative for abdominal pain, nausea, vomiting, diarrhea, and constipation, Back: Negative for injury and pain, MS/Extremity: Negative for injury and deformity, Skin: Negative for injury, rash, and discoloration, Neuro: Negative for headache, weakness, numbness, tingling, and seizure. Exam: 07:15 Constitutional: This is a well developed, well nourished patient who is awake, alert, rn and in no acute distress. Ambulatory to room without difficulty. Head/Face: Normocephalic, atraumatic. Eyes: Periorbital areas with no swelling, redness, or edema. ENT: No stridor Neck: Trachea midline, no masses palpated, and no cervical lymphadenopathy. Supple, full range of motion without nuchal rigidity, or vertebral point tenderness. No Meningismus. Cardiovascular: Regular rate and rhythm. No pulse deficits. Respiratory: Speaking full sentences, unlabored. No increased work of breathing, no retractions or nasal flaring. Abdomen/GI: Soft, non-tender Skin: Warm, dry MS/ Extremity: Pulses equal, no cyanosis. Neurovascular intact. Full, normal range of motion. Equal circumference. Neuro: Awake and alert, GCS 15 Vital Signs: 07:12 Temp 98.3; Weight 79.38 kg (R); Height 6 ft. 2 in. (187.96 cm) (R); ll3 07:23 BP 141 / 81; Pulse 88; Resp 20; Pulse Ox 97% on R/A; ic1 10:16 BP 122 / 74; Pulse 81; Resp 20; Pulse Ox 99% on R/A; ic1 07:12 Body Mass Index 22.47 (79.38 kg, 187.96 cm) ll3 MDM: 07:09 Patient medically screened. rn 09:50 Differential Diagnosis: Bronchitis Influenza Upper Respiratory Infection Viral Syndrome rn Pneumonia Other COVID. Data reviewed: vital signs, nurses notes, lab test result(s), radiologic studies, plain films, and as a result, I will discharge patient. Data interpreted: Pulse oximetry: on room air is 98 %. Interpretation: normal. Test interpretation: by ED physician or midlevel provider: plain radiologic studies, CXR neg for pneumonia/pneumothorax. Counseling: I had a detailed discussion with the patient and/or guardian regarding: the historical points, exam findings, and any diagnostic results supporting the discharge/admit diagnosis, lab results, radiology results, the need for outpatient follow up, to return to the emergency department if symptoms worsen or persist or if there are any questions or concerns that arise at home. Response to treatment: the patient's symptoms have mildly improved after treatment, and as a result, I will discharge patient. Special discussion: I discussed with the patient/guardian in detail that at this point there is no indication for admission to the hospital. It is understood, however, that if the symptoms persist or worsen the patient needs to return immediately for re-evaluation. 11/20 07:17 Order name: COVID-19/FLU A+B (Document "Date of Onset" if Symptomatic); Complete Time: ap3 09:48 11/20 07:14 Order name: XRAY Chest (1 view); Complete Time: 07:59 rn Administered Medications: No medications were administered Disposition Summary: 11/20/21 09:51 Discharge Ordered Location: Home rn Problem: new rn Symptoms: are unchanged rn Condition: Stable rn Diagnosis - COPD/ Chronic obstructive pulmonary disease, unspecified rn - SARS-associated coronavirus as the cause of diseases classified elsewhere rn Followup: rn - With: Private Physician - When: As needed - Reason: Recheck today's complaints, Re-evaluation by your physician Discharge Instructions: - Discharge Summary Sheet rn - Chronic Obstructive Pulmonary Disease rn - Cough, Adult rn - COVID-19 rn Forms: - Medication Reconciliation Form rn - Thank You Letter rn - 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 Day 2, 3, 4 , 5 take one (1) tablet once daily.; 6 tablet; Refills: 0, Product Selection Permitted Signatures: Dispatcher [employer] Kyle Morfin MD MD rn Loubet, Lynsea RN RN ll3
[2021-11-20 10:53] VITALS: TEMP 98.3
[2021-11-20 10:56] VITALS: BP 122/74; O2SAT 99
== END 2021-11-20 10:42 | disposition home or self-care (01) ==
LOC: ER 07:04
DX: U07.1 COVID-19 (principal); J44.9 Chronic obstructive pulmonary disease, unspecified; I10 Essential (primary) hypertension; F17.210 Nicotine dependence, cigarettes, uncomplicated
CPT/HCPCS: 0240U; 71045; 99283

== ENCOUNTER 2023-10-22 15:39 | Emergency (ER) | payer OTHER ==
[2023-10-22] MEDS ORDERED: ONDANSETRON 4 MG/2 ML VIAL ONE (16:04)
[2023-10-22] MEDS ORDERED: FAMOTIDINE 20 MG/2 ML VIAL IV ONE (16:04)
[2023-10-22 16:41] LABS: Absolute Lymphocytes (CBC) 3.4 K/uL (0.7-4.9); Hematocrit 39.4 % (39.6-49.0); Lymphocytes % 36.7 % (15.3-44.8); MCV 98.8 fL (80-100); MPV 7.3 fL (7.6-11.3); Platelets 361 thou/uL (152-406); RBC Red Blood Cell Count 3.98 M/uL (4.33-5.43)
[2023-10-22 16:45] LABS: Albumin 3.4 g/dL (3.4-5.0); Bilirubin Total 0.5 mg/dL (0.2-1.0); Potassium 3.7 mEq/L (3.5-5.1); Protein, Total 8.2 g/dL (6.4-8.2); Troponin High Sensitivity 6.1 pg/mL (<58.9)
--- NOTE | 2023-10-22 17:03 | RAD REPORT ---
EXAM DESCRIPTION: US - Abdomen Exam Limited - 10/22/2023 4:34 pm CLINICAL HISTORY: ABD PAIN COMPARISON: No comparisons TECHNIQUE: Sonographic grayscale and color flow images of the right upper abdominal quadrant were o btained. FINDINGS: The gallbladder demonstrates no gallstones. No pericholecystic fluid or gallbladder wall t hickening. The common bile duct is normal measuring 4 mm. The liver demonstrates no findings of intrahepatic biliary dilatation. IMPRESSION: No abnormalities on the right upper quadrant ultrasound.
--- NOTE | 2023-10-22 18:21 | RAD REPORT ---
EXAM DESCRIPTION: CT - Abdomen Pelvis W Contrast - 10/22/2023 5:04 pm CLINICAL HISTORY: ABD PAIN COMPARISON: No comparisons TECHNIQUE: Thin cut axial CT imaging of the abdomen and pelvis was performed following intravenous a dministration of 100 mL Isovue 300. Multiplanar reformats were generated and reviewed. All CT scans are performed using dose optimization technique as appropriate and may include automated exposure control or mA/KV adjustment according to patient size. FINDINGS: No suspicious findings in the lung bases. The liver, spleen, and adrenal glands show no suspicious findings. Mildly prominent caliber of the ma in pancreatic duct at the level of the body of the pancreas measuring 4 mm in caliber, a nonspecific finding. Gallbladder and biliary tree are also without suspicious finding. Symmetric renal function is seen with no hydronephrosis or suspicious renal mass. No dilated bowel loops or bowel wall thickening. Redundant sigmoid colon, with moderate gaseous diste ntion. No free air, free fluid or inflammatory stranding. No hernia, mass or bulky lymphadenopathy. T he urinary bladder is without significant finding. No suspicious bony findings. IMPRESSION: No acute intra-abdominal process. Redundant sigmoid colon with moderate gaseous distention. No evidence of obstruction. Mildly prominent caliber of a segment of the main pancreatic duct at the level of the pancreatic body , measuring 4 mm in caliber. This is nonspecific. Please correlate with pancreatic enzyme levels.
--- NOTE | 2023-10-22 18:39 | EDPHYS ---
Physician Documentation [facility] Name: Aj Cosme Jr Age: 68 yrs Sex: Male : 1955 Arrival Date: 10/22/2023 Time: 15:39 Bed 8 Private MD: ED Physician Kyle Chen HPI: 10/22 15:43 This 68 yrs old Black Male presents to ER via Unassigned with complaints of Abdominal rn Pain. 15:43 The patient presents with abdominal pain in the periumbilical area. rn 15:43 Onset: The symptoms/episode began/occurred 3 week(s) ago. The symptoms do not radiate. rn Associated signs and symptoms: Pertinent negatives: nausea and vomiting, anorexia, blood in stools, chest pain, constipation, diarrhea, dysuria, fever, shortness of breath, vomiting. The symptoms are described as achy. Modifying factors: The symptoms are alleviated by nothing, the symptoms are aggravated by nothing. Severity of pain: At its worst the pain was moderate in the emergency department the pain has improved. The patient has experienced similar episodes in the past. Patient reports mid abdominal pain, happens daily, worse at night, improved with Tums. No vomiting. No blood in stool. No diarrhea. No fever. No chest pain. No shortness of breath. I seen PCP for this and referred to GI but no GI appointments available for 2 or 3 months.. Historical: - Allergies: 15:43 NKA; ld1 - PMHx: 15:43 Hypertension; ALS (Hypertension); ld1 - Immunization history:: Adult Immunizations up to date. - Social history:: Smoking status: Patient denies any tobacco usage or history of. Patient/guardian denies using alcohol. - Family history:: not pertinent. - Hospitalizations: : No recent hospitalization is reported. ROS: 15:43 Constitutional: Negative for fever, chills, and weight loss, Cardiovascular: Negative rn for chest pain, palpitations, and edema, Respiratory: Negative for shortness of breath, cough, wheezing, and pleuritic chest pain, Abdomen/GI: Positive for abdominal pain Back: Negative for injury and pain, MS/Extremity: Negative for injury and deformity, Skin: Negative for injury, rash, and discoloration, Neuro: Negative for headache, weakness, numbness, tingling, and seizure, Exam: 15:43 Constitutional: This is a well developed, well nourished patient who is awake, alert, rn and in no acute distress. Cardiovascular: Regular rate and rhythm. No pulse deficits. Respiratory: No increased work of breathing, no retractions or nasal flaring. Abdomen/GI: Soft, mild mid abdominal tenderness. No distention. No masses. Possible small umbilical hernia noted without skin discoloration. No right upper quadrant tenderness, no right lower quadrant tenderness no suprapubic tenderness. MS/ Extremity: Pulses equal, no cyanosis. Neuro: Awake and alert, GCS 15 17:44 ECG was reviewed by the Attending Physician. rn Vital Signs: 15:42 BP 157 / 81; Pulse 73; Resp 18; Temp 98.2(TE); Pulse Ox 99% on R/A; Weight 95.25 kg; ld1 Height 6 ft. 2 in. ; Pain 8/10; 15:45 BP 157 / 81; Pulse 70; ld1 16:53 BP 138 / 84; ld1 17:26 BP 134 / 80; Pulse 65; Resp 18; Pulse Ox 99% on R/A; ld1 18:05 BP 134 / 80; Pulse 71; Resp 18; Pulse Ox 99% on R/A; ld1 15:42 Body Mass Index 26.96 (95.25 kg, 187.96 cm) ld1 15:42 Pain Scale: Adult ld1 MDM: 15:41 Patient medically screened. rn 18:37 Differential diagnosis: appendicitis, bowel obstruction, cholecystitis, Cholelithiasis, rn diverticulitis, gastritis, gastroesophageal reflux disease, non-specific abd pain, pancreatitis, Peptic Ulcer Disease, Perf. Duodenal Ulcer, Perf. Gastric Ulcer, Pyelonephritis, Ureterolithiasis, Aortic aneurysm. Data reviewed: vital signs, nurses notes, lab test result(s), radiologic studies, CT scan, and as a result, I will discharge patient. Counseling: I had a detailed discussion with the patient and/or guardian regarding the historical points, exam findings, and any diagnostic results supporting the discharge/admit diagnosis, lab results, radiology results, the need for outpatient follow up, to return to the emergency department if symptoms worsen or persist or if there are any questions or concerns that arise at home. Response to treatment: the patient's symptoms have resolved after treatment, the patient's condition has returned to base line, the patient is now symptom free, and as a result, I will discharge patient. Special discussion: Based on the patient's Hx, exam, and Dx evaluation, there is no indication for emergent surgery or inpatient Tx. It is understood by the patient/guardian that if the Sx's persist or worsen they need to return immediately for re-evaluation. I discussed with the patient/guardian in detail that at this point there is no indication for admission to the hospital. It is understood, however, that if the symptoms persist or worsen the patient needs to return immediately for re-evaluation. Based on the history and exam findings, there is no indication for further emergent testing or inpatient evaluation. I discussed with the patient/guardian the need to see the club former for further evaluation of the symptoms. ED course: No acute findings on workup here. Nonspecific dilatation of pancreatic duct found on CT but normal lipase levels and no upper abdominal pain. Recommend GI follow-up as PCP is already told patient. Patient has had pain for months and no acute findings at this time. Will DC home with Bentyl and GI follow-up. I have personally reviewed all of the results, including but not limited to blood tests and imaging deemed necessary to safely discharge this patient at this time. All results given to and printed out for patient. I personally went over all the results with the patient and answered all questions. Patient will follow-up with PCP and or specialist as discussed. Return precautions given and understood.. 10/22 15:42 Order name: CBC with Diff; Complete Time: 16:59 10/22 15:42 Order name: CMP; Complete Time: 16:59 10/22 15:42 Order name: Lipase; Complete Time: 16:59 rn 12 15:42 Order name: Troponin High Sensitivity; Complete Time: 16:59 rn 12 15:42 Order name: CT Abd/Pelvis - IV Contrast Only; Complete Time: 18:30 rn 12 15:42 Order name: US Abdomen Limited; Complete Time: 17:21 rn 12 15:42 Order name: EKG; Complete Time: 15:43 rn 12 15:42 Order name: IV Saline Lock; Complete Time: 16:14 10/22 15:42 Order name: Labs collected and sent; Complete Time: 16:14 rn 10/22 15:42 Order name: EKG - Nurse/Tech; Complete Time: 16:11 rn EC:44 Rate is 75 beats/min. Rhythm is regular. QRS [place] is Normal. MO interval is normal. QRS rn interval is normal. QT interval is normal. No Q waves. T waves are Normal. No ST changes noted. Clinical impression: Normal ECG. Reviewed by me. Administered Medications: 16:00 Drug: Famotidine IVP 20 mg IVP once; dilute with 10 mL 0.9% NaCl; give over 2 minutes rs5 Route: IVP; Site: right antecubital; 16:00 Drug: Ondansetron IVP 4 mg IVP once; over 2 minutes Route: IVP; Site: right antecubital;rs5 16:20 Follow up: Response: No adverse reaction rs5 18:40 Drug: Dicyclomine PO 20 mg PO once Route: PO; rs5 18:58 Follow up: Response: No adverse reaction rs5 Disposition Summary: 10/22/23 18:39 Discharge Ordered Notes: Location: Home rn Problem: new rn Symptoms: have improved rn Condition: Stable rn Diagnosis - Abdominal pain, unspecified rn Followup: rn - With: Tra Benoit MD - When: As needed - Reason: Recheck today's complaints, Re-evaluation by your physician Discharge Instructions: - Discharge Summary Sheet rn - Abdominal Pain, Adult rn - Pain Without a Known Cause rn Forms: - Medication Reconciliation Form rn - Thank You Letter rn - 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
--- NOTE | 2023-10-22 18:39 | ER ---
Nurse's Notes [facility] Name: Aj Cosme Jr Age: 68 yrs Sex: Male : 1955 Arrival Date: 10/22/2023 Time: 15:39 Bed 8 Private MD: Diagnosis: Abdominal pain, unspecified Presentation: 10/22 15:42 Chief complaint: EMS states: toned out to patient home for abdominal pain X 3 weeks. ld1 Coronavirus screen: At this time, the client does not indicate any symptoms associated with coronavirus-19. Ebola Screen: No symptoms or risks identified at this time. Initial Sepsis Screen: Does the patient meet any 2 criteria? No. Patient's initial sepsis screen is negative. Does the patient have a suspected source of infection? No. Patient's initial sepsis screen is negative. Risk Assessment: Do you want to hurt yourself or someone else? Patient reports no desire to harm self or others. Onset of symptoms was October 22, 2023 at 15:43. 15:42 Method Of Arrival: EMS: [facility] ld1 15:42 Acuity: JEREMY 3 ld1 Triage Assessment: 15:44 General: Appears in no apparent distress. comfortable, Behavior is calm, cooperative, ld1 appropriate for age. Pain: Complains of pain in abdomen Pain does not radiate. Pain currently is 8 out of 10 on a pain scale. Quality of pain is described as sharp, shooting, throbbing. EENT: No signs and/or symptoms were reported regarding the EENT system. Neuro: Level of Consciousness is awake, alert, obeys commands, Oriented to person, place, time, situation. Cardiovascular: Capillary refill < 3 seconds Patient's skin is warm and dry. Respiratory: Airway is patent Respiratory effort is even, unlabored. GI: Abdomen is flat, non-distended. : No signs and/or symptoms were reported regarding the genitourinary system. Derm: No signs and/or symptoms reported regarding the dermatologic system. Musculoskeletal: No signs and/or symptoms reported regarding the musculoskeletal system. Reports general loss of movement due to ALS. Historical: - Allergies: 15:43 NKA; ld1 - PMHx: 15:43 Hypertension; ALS (Hypertension); ld1 - Immunization history:: Adult Immunizations up to date. - Social history:: Smoking status: Patient denies any tobacco usage or history of. Patient/guardian denies using alcohol. - Family history:: not pertinent. - Hospitalizations: : No recent hospitalization is reported. Screenin:45 [facility] ED Fall Risk Assessment (Adult) History of falling in the last 3 months, ld1 including since admission No falls in past 3 months (0 pts). Abuse screen: Denies threats or abuse. Denies injuries from another. Nutritional screening: No deficits noted. Tuberculosis screening: No symptoms or risk factors identified. Assessment: 15:45 Reassessment: See triage assessment. ld1 17:00 Reassessment: Patient appears in no apparent distress at this time. No changes from ld1 previously documented assessment. Patient and/or family updated on plan of care and expected duration. Pain level reassessed. 18:06 Reassessment: Patient appears in no apparent distress at this time. No changes from ld1 previously documented assessment. Patient and/or family updated on plan of care and expected duration. Pain level reassessed. Patient denies pain at this time. Vital Signs: 15:42 BP 157 / 81; Pulse 73; Resp 18; Temp 98.2(TE); Pulse Ox 99% on R/A; Weight 95.25 kg; ld1 Height 6 ft. 2 in. ; Pain 8/10; 15:45 BP 157 / 81; Pulse 70; ld1 16:53 BP 138 / 84; ld1 17:26 BP 134 / 80; Pulse 65; Resp 18; Pulse Ox 99% on R/A; ld1 18:05 BP 134 / 80; Pulse 71; Resp 18; Pulse Ox 99% on R/A; ld1 15:42 Body Mass Index 26.96 (95.25 kg, 187.96 cm) ld1 15:42 Pain Scale: Adult ld1 ED Course: 15:41 Patient arrived in ED. ld1 15:41 Kyle Chen MD is Attending Physician. rn 15:43 Triage completed. ld1 15:44 Arm band placed on right wrist. ld1 15:45 Patient has correct armband on for positive identification. Placed in gown. Bed in low ld1 position. Call light in reach. Side rails up X2. lunchroom monitor on. Pulse ox on. NIBP on. Door closed. Noise minimized. Warm blanket given. 15:45 No provider procedures requiring assistance completed. ld1 16:01 Missed attempt(s): 22 gauge in right forearm. Bleeding controlled, band aid applied, em1 catheter tip intact. 16:11 EKG done, by ED staff, reviewed by Kyle Chen MD. em1 16:14 CBC with Diff Sent. ld1 16:14 CMP Sent. ld1 16:14 Lipase Sent. ld1 16:36 US Abdomen Limited In Process Unspecified. EDMS 16:53 Debbi Guillen, RN is Primary Nurse. ld1 16:53 Inserted saline lock: 22 gauge in right upper arm, using aseptic technique. ld1 17:05 CT Abd/Pelvis - IV Contrast Only In Process Unspecified. EDMS 18:39 Tra Benoit MD is Referral Physician. rn 18:58 IV discontinued, intact, bleeding controlled, No redness/swelling at site. ld1 Administered Medications: 16:00 Drug: Famotidine IVP 20 mg IVP once; dilute with 10 mL 0.9% NaCl; give over 2 minutes rs5 Route: IVP; Site: right antecubital; 16:00 Drug: Ondansetron IVP 4 mg IVP once; over 2 minutes Route: IVP; Site: right antecubital;rs5 16:20 Follow up: Response: No adverse reaction rs5 18:40 Drug: Dicyclomine PO 20 mg PO once Route: PO; rs5 18:58 Follow up: Response: No adverse reaction rs5 Medication: 15:45 VIS not applicable for this client. ld1 Outcome: 18:39 Discharge ordered by MD. rn 18:58 Discharged to home via wheelchair, ld1 18:58 Condition: stable 18:58 Discharge instructions given to patient, Instructed on discharge instructions, follow up and referral plans. medication usage, Demonstrated understanding of instructions, follow-up care, medications, Prescriptions given X 1, 18:59 Patient left the ED. ld1 Signatures: Dispatcher [employer] EDKyle Walter MD MD rn Martinez, Eric em1 Debbi Guillen, CHARLES SOTO ld1 Zachary Parikh RN RN rs5 Corrections: (The following items were deleted from the chart) 18:58 08:40 Dicyclomine PO 20 mg PO rs5 rs5
[2023-10-22] MEDS ORDERED: DICYCLOMINE HCL 10 MG CAP ONE (18:54)
[2023-10-22 19:59] VITALS: TEMP 98.2; O2SAT 99
[2023-10-22 20:15] VITALS: BP 134/80
--- NOTE | 2023-10-23 13:04 | EKG ---
Test Date: 2023-10-22 Test Time: 16:07:25 Medical Oncologist: LESLIE MEASUREMENT RESULTS: Intervals: Rate: 75 [place]: 164 QRSD: 76 QT: 392 QTc: 437 [place]: P: 89 OH: 164 QRS: 73 T: 72 INTERPRETIVE STATEMENTS: Normal sinus rhythm Normal ECG Compared to ECG 02/26/2018 17:51:07 Sinus arrhythmia no longer present Ventricular premature complex(es) no longer present Electronically Signed On 10-23-23 13:03:44 SCREW MACHINE HAND by Tip Wills
== END 2023-10-22 18:59 | disposition home or self-care (01) ==
LOC: ER 15:39
DX: R10.33 Periumbilical pain (principal); I10 Essential (primary) hypertension
CPT/HCPCS: 85025; 36415; 84484; 83690; 80053; 74177; 76705; Q9967; J2405; 93005; 96374; 96375; 99285

== ENCOUNTER → 2023-11-08 | Emergency (ER) | payer OTHER ==
[~2023-11-08] MED LIST: GLYCERIN ADULT SUPP PR ONE
--- NOTE | 2023-11-08 12:08 | ER ---
Nurse's Notes [facility] Name: Aj Cosme Jr Age: 68 yrs Sex: Male : 1955 Arrival Date: 11/08/2023 Time: 08:37 Bed 18 Private MD: Diagnosis: Constipation, unspecified Presentation: 11/08 08:56 Chief complaint: EMS states: Toned out for constipation. Coronavirus screen: At this jl7 time, the client does not indicate any symptoms associated with coronavirus-19. Ebola Screen: No symptoms or risks identified at this time. Initial Sepsis Screen: Does the patient meet any 2 criteria? No. Patient's initial sepsis screen is negative. Does the patient have a suspected source of infection? No. Patient's initial sepsis screen is negative. Risk Assessment: Do you want to hurt yourself or someone else? Patient reports no desire to harm self or others. Onset of symptoms is unknown. 08:56 Method Of Arrival: EMS: [facility] 7 08:56 Acuity: JEREMY 3 jl7 Triage Assessment: 08:58 General: Appears in no apparent distress. uncomfortable, Behavior is calm, cooperative, jl7 appropriate for age. Pain: Denies pain. GI: Abdomen is non-distended, Bowel sounds present X 4 quads. Abd is soft and non tender X 4 quads. Historical: - Allergies: 08:58 NKA; jl7 - PMHx: 08:58 ALS (Hypertension); Hypertension; jl7 - Immunization history:: Adult Immunizations unknown. - Social history:: Smoking status: Patient reports the use of cigarette tobacco products, smokes one-half pack cigarettes per day. Screenin:16 [facility] ED Fall Risk Assessment (Adult) History of falling in the last 3 months, db including since admission No falls in past 3 months (0 pts) Confusion or Disorientation No (0 pts) Intoxicated or Sedated No (0 pts) Impaired Gait No (0 pts) Mobility Assist Device Used No (0 pt) Altered Elimination No (0 pt) Score/Fall Risk Level 0 - 2 = Low Risk Oriented to surroundings, Maintained a safe environment. Abuse screen: Denies threats or abuse. Denies injuries from another. Nutritional screening: No deficits noted. Tuberculosis screening: No symptoms or risk factors identified. Assessment: 09:07 Reassessment: Dr. Forrester at bedside. jl7 09:33 Reassessment: PENDING PHARMACY FOR GLYCERIN SUPPOSITORY. db 10:18 Reassessment: GLYCERIN SUPPOSITORY PLACED. Reassessment: Patient appears in no apparent db distress at this time. Patient and/or family updated on plan of care and expected duration. Pain level reassessed. Patient is alert, oriented x 3, equal unlabored respirations, skin warm/dry/pink. General: Appears in no apparent distress. comfortable, Behavior is calm, cooperative. Neuro: Level of Consciousness is awake, alert, obeys commands, Oriented to person, place, time, situation. Respiratory: Airway is patent Respiratory effort is even, unlabored, Respiratory pattern is regular, symmetrical. 11:30 Reassessment: Patient appears in no apparent distress at this time. Patient and/or db family updated on plan of care and expected duration. Pain level reassessed. Patient is alert, oriented x 3, equal unlabored respirations, skin warm/dry/pink. PT ASSISTED TO RESTROOM AND REPORTS SMALL BOWEL MOVEMENT. ASSISTED PT WITH CLEANING SELF. Vital Signs: 08:56 BP 128 / 78; Pulse 80; Resp 17; Temp 98.4; Pulse Ox 99% ; Weight 70.31 kg; Height 6 ft. jl7 2 in. ; Pain 0/10; 09:00 BP 133 / 75; Pulse 72; Resp 16; Pulse Ox 97% on R/A; db 09:45 BP 145 / 89; Pulse 84; Resp 18; Pulse Ox 100% on R/A; db 11:30 BP 149 / 80; Pulse 74; Resp 16; Pulse Ox 99% on R/A; db 08:56 Body Mass Index 19.90 (70.31 kg, 187.96 cm) jl7 08:56 Pain Scale: Adult jl7 ED Course: 08:40 Patient arrived in ED. bc6 08:41 Noble Forrester MD is Attending Physician. ec2 08:58 Triage completed. jl7 08:58 Arm band placed on right wrist. jl7 09:15 Ignacia Mckenna, RN is Primary Nurse. db 10:16 Patient has correct armband on for positive identification. Bed in low position. Call db light in reach. Side rails up X 1. Pulse ox on. NIBP on. Warm blanket given. 12:15 Provided Education on: DISCHARGE. db 12:15 No provider procedures requiring assistance completed. Patient did not have IV access db during this emergency room visit. Administered Medications: 09:12 CANCELLED (Physician Discretion): fleet [id number] ml ID once; may repeat once ec2 10:13 Drug: Glycerin (Adult) ID Suppository 1 supp ID once Route: ID; db 12:15 Follow up: Response: No adverse reaction db Medication: 12:15 VIS not applicable for this client. db Outcome: 12:08 Discharge ordered by . ec2 12:15 Discharged to home via wheelchair, with significant other, db 12:15 Condition: stable 12:15 Discharge instructions given to patient, family, significant other, Instructed on discharge instructions, follow up and referral plans. Prescriptions given X 1, 12:22 Patient left the ED. Signatures: Rona Gilliam, RN RN Daren Ching RN RN jl7 Ignacia Mckenna RN RN Radha Green6 Noble Forrester MD MD ec2
--- NOTE | 2023-11-08 12:08 | EDPHYS ---
Physician Documentation [facility] Name: Aj Cosme Jr Age: 68 yrs Sex: Male : 1955 Arrival Date: 11/08/2023 Time: 08:37 Bed 18 Private MD: ED Physician Noble Forrester HPI: 11/08 08:43 This 68 yrs old Black Male presents to ER via Unassigned with complaints of ec2 Constipation. 08:43 Patient arrives today for evaluation of constipation. Patient was seen 1 week ago, ec2 external records show that he had a CT which gaseous distention. No evidence of obstruction. Patient states that he has not had a bowel movement during this timeframe. States that he is having straining however unable to pass a bowel movement. Patient reports no issues with p.o. intake.. Historical: - Allergies: 08:58 NKA; jl7 - PMHx: 08:58 ALS (Hypertension); Hypertension; jl7 - Immunization history:: Adult Immunizations unknown. - Social history:: Smoking status: Patient reports the use of cigarette tobacco products, smokes one-half pack cigarettes per day. ROS: 08:43 Constitutional: as per hpi ec2 Exam: 08:43 Constitutional: GEN: NAD Head: atraumatic Eyes: EOMI Ears: External ears are ec2 normal. CV: regular rate LUNGS: no respiratory distress ABD: non-distended SKIN: no evidence of rashes MSK: no evidence of trauma NEURO: moves all extremities equally Vital Signs: 08:56 BP 128 / 78; Pulse 80; Resp 17; Temp 98.4; Pulse Ox 99% ; Weight 70.31 kg; Height 6 ft. jl7 2 in. ; Pain 0/10; 09:00 BP 133 / 75; Pulse 72; Resp 16; Pulse Ox 97% on R/A; db 09:45 BP 145 / 89; Pulse 84; Resp 18; Pulse Ox 100% on R/A; db 11:30 BP 149 / 80; Pulse 74; Resp 16; Pulse Ox 99% on R/A; db 08:56 Body Mass Index 19.90 (70.31 kg, 187.96 cm) jl7 08:56 Pain Scale: Adult jl7 MDM: 08:41 Patient medically screened. ec2 08:43 ED course: Patient arrives today due to concern for constipation. Examination ec2 remarkable for well-appearing nontoxic individual is otherwise in no acute distress. Patient attempted to have a bowel movement now, will attempt enema if unsuccessful.. 09:04 Data reviewed: vital signs. ec2 12:07 ED course: Reassessment patient with some improvement with liquid stool, will discharge ec2 home with oral constipation medications. Return precautions given. Clinically have a low index suspicion for bowel obstruction given the patient's reassuring abdominal examination, additionally have low suspicion for process such as ileus given lack of pain. Accordingly I did not feel lab work such as CBC or metabolic profile with CT imaging will be beneficial in the setting. Additionally patient had recent labs and imaging.. Administered Medications: 09:12 CANCELLED (Physician Discretion): fleet ml WV once; may repeat once ec2 10:13 Drug: Glycerin (Adult) WV Suppository 1 supp WV once Route: WV; db 12:15 Follow up: Response: No adverse reaction db Disposition Summary: 11/08/23 12:08 Discharge Ordered Notes: Location: Home ec2 Condition: Stable ec2 Diagnosis - Constipation, unspecified ec2 Followup: ec2 - With: Private Physician - When: - Reason: Recheck today's complaints Discharge Instructions: - Discharge Summary Sheet ec2 - Constipation, Adult ec2 Forms: - Medication Reconciliation Form ec2 - Thank You Letter ec2 - Antibiotic Education ec2 - Prescription Opioid Use ec2 - Patient Portal Instructions ec2 - Leadership Thank You Letter ec2 Prescriptions: - Lactulose 10 gram/15 mL Oral Solution - take 30 milliliters ORAL route once daily; 300 milliliter; Refills: 0, Product ec2 Selection Permitted Signatures: Daren Ching RN RN jl7 Ignacia Mckenna RN RN db Noble Forrester MD MD ec2 Corrections: (The following items were deleted from the chart) 09:12 08:49 Fleet Enema WV 133 ml WV once; may repeat once ordered. ec2 ec2 09:37 08:43 ED course: Patient arrives today due to concern for constipation. Examination ec2 remarkable for well-appearing nontoxic individual is otherwise in no acute distress. Patient attempted to have a bowel movement now, will attempt Fleet enema if unsuccessful.. ec2
[2023-11-08 13:29] VITALS: BP 145/89; TEMP 98.4; O2SAT 100
== END ==
LOC: ER 08:37
DX: K59.00 Constipation, unspecified (principal); F17.210 Nicotine dependence, cigarettes, uncomplicated
CPT/HCPCS: 99284

== ENCOUNTER 2024-10-09 12:15 | Emergency (ER) | payer OTHER ==
[2024-10-09] MEDS ORDERED: ALBUTEROL 2.5 MG/3 ML NEB SOL ONE (12:59)
[2024-10-09] MEDS ORDERED: IPRATROPIUM BROM 0.5MG/2.5ML ONE (12:59)
[2024-10-09] MEDS ORDERED: METHYLPREDNISOLONE 125 MG INJ ONE (13:00)
[2024-10-09 13:03] LABS: Absolute Basophils 0.1 K/uL (0-0.5); Absolute Eosinophils 0.4 K/uL (0-0.5); Absolute Lymphocytes (CBC) 3.2 K/uL (0.7-4.9); Absolute Monocytes 0.8 K/uL (0.1-1.3); Absolute Neutrophil 3.8 K/uL (1.8-8.0); Basophils % 0.9 % (0-1.3); Eosinophils % 5.3 % (0-4.4); Hematocrit 42.7 % (39.6-49.0); Hemoglobin 13.7 g/dL (13.6-17.9); Lymphocytes % 38.6 % (15.3-44.8); MCH 32.3 pg (27.0-35.0); MCHC 32.1 g/dL (32.0-36.0); MCV 100.8 fL (80-100); MPV 7.1 fL (7.6-11.3); Monocytes % 9.9 % (3.3-12.3); Neutrophils % 45.3 % (41.7-73.7); Platelets 309 thou/uL (152-406); RBC Red Blood Cell Count 4.24 M/uL (4.33-5.43); Red Cell Distribution Width 14.2 % (12.1-15.2)
[2024-10-09 13:21] LABS: Albumin 3.1 g/dL (3.4-5.0); Albumin/Globulin Ratio 0.8 (1.1-1.8); Anion Gap 7.6 mEq/L (5.0-15.0); Bilirubin Direct 0.2 mg/dL (0-0.2); Bilirubin Indirect, Calculated 0.3 mg/dL (0.2-0.8); Bilirubin Total 0.5 mg/dL (0.2-1.0); Globulin 4.1 g/dL (2.3-3.5); Potassium 3.6 mEq/L (3.5-5.1); Protein, Total 7.2 g/dL (6.4-8.2); Troponin High Sensitivity 6.1 pg/mL (<58.9)
--- NOTE | 2024-10-09 13:46 | RAD REPORT ---
EXAM: Chest Single View HISTORY: COUGH COMPARISON: None. FINDINGS: LUNGS/PLEURA: The lungs are clear. No pleural effusions or pneumothorax. No pulmonary edema. MEDIASTINUM: The mediastinal silhouette is within normal limits. CARDIAC: The cardiac silhouette is within normal limits. UPPER ABDOMEN: No significant abnormality. BONES: No acute fracture. LINES/TUBES/OTHER: N/A IMPRESSION: No evidence of acute cardiopulmonary disease.
--- NOTE | 2024-10-09 14:05 | EDPHYS ---
Physician Documentation [facility] Name: Aj Cosme Jr Age: 69 yrs Sex: Male : 1955 Arrival Date: 10/09/2024 Time: 12:15 Bed 18 Private MD: ED Physician Lawrence Rodriguez HPI: 10/09 13:24 This 69 yrs old Black Male presents to ER via Wheelchair with complaints of Chest rt Congestion, Sinus Congestion. 13:24 Patient presents to the ED with cough, reported chest congestion. Denies chest pain, rt chest pressure. The patient denies shortness of breath. The symptoms have been present for about 2 weeks, states that they worsen at nighttime. Was prescribed Claritin to no relief. Denies other acute complaints at this time, symptoms are moderate in severity, no other aggravating or alleviating factors.. Historical: - Allergies: 12:27 NKA; tm6 - PMHx: 12:27 ALS (Hypertension); Hypertension; tm6 - PSHx: 12:27 right hip replacement (Hypertension); tm6 - Immunization history:: Client reports receiving the 2nd dose of the Covid vaccine. - Infectious Disease History:: Denies. - Social history:: Smoking status: Patient reports the use of cigarette tobacco products, smokes one pack cigarettes per day. - Family history:: not pertinent. ROS: 13:24 Constitutional: Negative for fever, chills, and weight loss, Cardiovascular: Negative rt for chest pain, palpitations, and edema, Abdomen/GI: Negative for abdominal pain, nausea, vomiting, diarrhea, and constipation, MS/Extremity: Negative for injury and deformity, Skin: Negative for injury, rash, and discoloration, Neuro: Negative for headache, weakness, numbness, tingling, and seizure, 13:24 Respiratory: Positive for cough, Negative for shortness of breath, Exam: 13:24 ECG was reviewed by the Attending Physician. rt 13:24 Respiratory: Faint wheezes heard on all lung villagran, no respiratory distress, 13:26 Constitutional: This is a well developed, well nourished patient who is awake, alert, rt and in no acute distress. Head/Face: Normocephalic, atraumatic. Chest/axilla: Normal chest wall appearance and motion. Nontender with no deformity. No lesions are appreciated. Cardiovascular: Regular rate and rhythm with a normal S1 and S2. No gallops, murmurs, or rubs. Normal PMI, no JVD. No pulse deficits. Abdomen/GI: Soft, non-tender, with normal bowel sounds. No distension or tympany. No guarding or rebound. No evidence of tenderness throughout. Skin: Warm, dry with normal turgor. Normal color with no rashes, no lesions, and no evidence of cellulitis. MS/ Extremity: Pulses equal, no cyanosis. Neurovascular intact. Full, normal range of motion. Neuro: Awake and alert, GCS 15, oriented to person, place, time, and situation. Cranial nerves II-XII grossly intact. Motor strength 5/5 in all extremities. Sensory grossly intact. Cerebellar exam normal. Normal gait. Vital Signs: 12:26 BP 179 / 96; Pulse 77; Resp 18; Temp 98.4(TE); Pulse Ox 99% on R/A; MAP 120 mmHg; tm6 Weight 73.48 kg; Height 6 ft. 2 in. ; Pain 0/10; 13:01 BP 164 / 94; Pulse 80; Resp 17; Pulse Ox 98% ; rs5 14:01 BP 162 / 89; Pulse 74; Resp 17; Pulse Ox 98% on R/A; rs5 12:26 Body Mass Index 20.80 (73.48 kg, 187.96 cm) tm6 12:26 Pain Scale: Adult tm6 MDM: 12:36 Medical Screening Exam initiated rt 15:12 Differential Diagnosis: Bronchitis Viral Syndrome Pneumonia. Data reviewed: vital rt signs, nurses notes, lab test result(s), EKG, radiologic studies. I considered the following discharge prescriptions or medication management in the emergency department Medications were administered in the Emergency Department. See MAR. Independent interpretation of the following test(s) in the Emergency Department X-Ray: My interpretation is No consolidation seen on my interpretation of x-ray images. Care significantly affected by the following chronic conditions: Hypertension. Counseling: I had a detailed discussion with the patient and/or guardian regarding the historical points, exam findings, and any diagnostic results supporting the discharge/admit diagnosis, lab results, radiology results, the need for outpatient follow up, to return to the emergency department if symptoms worsen or persist or if there are any questions or concerns that arise at home. Response to treatment: the patient's symptoms have markedly improved after treatment. 10/09 12:46 Order name: Basic Metabolic Panel; Complete Time: 13:23 rt 10/09 12:46 Order name: CBC with Diff; Complete Time: 13: rt 10/09 12:46 Order name: LFT's; Complete Time: 13: rt 10/09 12:46 Order name: NT PRO-BNP; Complete Time: 13: rt 10/09 12:46 Order name: Troponin HS; Complete Time: 13: rt 10/09 12:46 Order name: XRAY Chest (1 view); Complete Time: 13:47 rt 10/09 12:46 Order name: EKG; Complete Time: 12:47 rt 10/09 12:46 Order name: Cardiac monitoring; Complete Time: 13: rt 10/09 12:46 Order name: EKG - Nurse/Tech; Complete Time: 13: rt 10/09 12:46 Order name: IV Saline Lock; Complete Time: 13: rt 10/09 12:46 Order name: Labs collected and sent; Complete Time: 13: rt 10/09 12:46 Order name: O2 Per Protocol; Complete Time: 13: rt 10/09 12:46 Order name: O2 Sat Monitoring; Complete Time: 13:26 rt EC:24 Rate is 72 beats/min. Rhythm is regular, Normal Sinus Rhythm with No ectopy. QRS [place] rt is Normal. MI interval is normal. QRS interval is normal. QT interval is normal. No Q waves. T waves are Normal. No ST changes noted. Interpreted by me. Administered Medications: 12:50 Drug: DuoNeb Nebulize (3:1) (2.5 mg - 0.5 mg) 3 ml Nebulizer once Route: Nebulizer; rs5 13:10 Follow up: Response: No adverse reaction rs5 12:50 Drug: MethylPrednisoLONE IVP 125 mg IVP once Route: IVP; Site: left antecubital; rs5 13:05 Follow up: Response: No adverse reaction rs5 Disposition Summary: 10/09/24 14:04 Discharge Ordered Notes: Location: Home rt Problem: new rt Symptoms: have improved rt Condition: Stable rt Diagnosis - Other infective otitis externa, left ear rt - Acute bronchitis, unspecified rt Followup: rt - With: Private Physician - When: 2 - 3 days - Reason: Discharge Instructions: - Discharge Summary Sheet rt - Acute Bronchitis, Adult rt - Otitis Externa rt Forms: - Medication Reconciliation Form rt - Antibiotic Education rt - Prescription Opioid Use rt - Patient Portal Instructions rt - Leadership Thank You Letter rt Prescriptions: - albuterol sulfate 90 mcg/actuation Inhalation HFA Aerosol Inhaler - inhale 4 puff INHALATION route every 4 hours as needed; 2 Each; Refills: 0, rt Product Selection Permitted - Prednisone 20 mg Oral Tablet - take 2 tablets ORAL route once daily for 5 days; 10 tablet; Refills: 0, Product rt Selection Permitted - Ciprodex 0.3-0.1 % Otic drops, suspension - instill 4 drops OTIC route every 12 hours for 7 days , for ears ONLY; 1 Each; rt Refills: 0, Product Selection Permitted Signatures: Dispatcher [employer] Lawrence Herman MD MD rt Zachary Parikh, RN RN rs5 Andrés Avalos RN RN tm6
--- NOTE | 2024-10-09 14:05 | ER ---
Nurse's Notes [facility] Name: Aj Cosme Jr Age: 69 yrs Sex: Male : 1955 Arrival Date: 10/09/2024 Time: 12:15 Bed 18 Private MD: Diagnosis: Other infective otitis externa, left ear;Acute bronchitis, unspecified Presentation: 10/09 12:26 Chief complaint: Patient states: chest and sinus congestion x3 weeks. Went to PCP, was tm6 prescribed Claritin, but has not helped. Coronavirus screen: Client denies travel out of the [place] in the last 14 days. Ebola Screen: Patient negative for fever greater than or equal to 101.5 degrees Fahrenheit, and additional compatible Ebola Virus Disease symptoms Patient denies exposure to infectious person. Patient denies travel to an Ebola-affected area in the 21 days before illness onset. No symptoms or risks identified at this time. Initial Sepsis Screen: Does the patient meet any 2 criteria? No. Patient's initial sepsis screen is negative. Does the patient have a suspected source of infection? No. Patient's initial sepsis screen is negative. Risk Assessment: Do you want to hurt yourself or someone else? Patient reports no desire to harm self or others. Onset of symptoms was September 18, 2024. 12:26 Method Of Arrival: Wheelchair tm6 12:26 Acuity: JEREMY 4 tm6 Triage Assessment: 12:27 General: Appears in no apparent distress. Behavior is calm, cooperative. Pain: Denies tm6 pain. EENT: Reports nasal congestion since x3 weeks. Neuro: Level of Consciousness is awake, alert, obeys commands, Oriented to person, place, time, situation. Cardiovascular: Patient's skin is warm and dry. Respiratory: Reports chest congestion Airway is patent Respiratory effort is even, unlabored, Respiratory pattern is regular, symmetrical. GI: No signs and/or symptoms were reported involving the gastrointestinal system. Abdomen is flat, non-distended. : No signs and/or symptoms were reported regarding the genitourinary system. Derm: No signs and/or symptoms reported regarding the dermatologic system. Musculoskeletal: No signs and/or symptoms reported regarding the musculoskeletal system. Historical: - Allergies: 12:27 NKA; tm6 - PMHx: 12:27 ALS (Hypertension); Hypertension; tm6 - PSHx: 12:27 right hip replacement (Hypertension); tm6 - Immunization history:: Client reports receiving the 2nd dose of the Covid vaccine. - Infectious Disease History:: Denies. - Social history:: Smoking status: Patient reports the use of cigarette tobacco products, smokes one pack cigarettes per day. - Family history:: not pertinent. Screenin:20 [facility] ED Fall Risk Assessment (Adult) History of falling in the last 3 months, rs5 including since admission No falls in past 3 months (0 pts) Confusion or Disorientation No (0 pts) Intoxicated or Sedated No (0 pts) Impaired Gait Yes (1 pt) Mobility Assist Device Used Yes (1 pt) Altered Elimination No (0 pt) Score/Fall Risk Level 0 - 2 = Low Risk Oriented to surroundings, Maintained a safe environment. Abuse screen: Denies threats or abuse. Nutritional screening: No deficits noted. Tuberculosis screening: No symptoms or risk factors identified. Assessment: 12:20 General: Appears in no apparent distress. uncomfortable, Behavior is calm, cooperative. rs5 12:20 Pain: Complains of pain in chest Pain currently is 3 out of 10 on a pain scale. Quality rs5 of pain is described as aching, Is continuous. Neuro: Level of Consciousness is awake, alert, obeys commands. Cardiovascular: Patient's skin is warm and dry. Respiratory: Airway is patent Respiratory effort is even, unlabored, Respiratory pattern is regular, symmetrical. Respiratory: Reports cough that is. GI: Abdomen is round non-distended, Abd is soft and non tender X 4 quads. : No signs and/or symptoms were reported regarding the genitourinary system. EENT: Reports nasal congestion. Derm: Skin is intact, Skin is pink, warm \T\ dry. Musculoskeletal: Range of motion: intact in all extremities. 13:59 Reassessment: Patient and/or family updated on plan of care and expected duration. Pain rs5 level reassessed. Patient is alert, oriented x 3, equal unlabored respirations, skin warm/dry/pink. 14:22 Reassessment: Patient and/or family updated on plan of care and expected duration. Pain rs5 level reassessed. Patient is alert, oriented x 3, equal unlabored respirations, skin warm/dry/pink. Vital Signs: 12:26 BP 179 / 96; Pulse 77; Resp 18; Temp 98.4(TE); Pulse Ox 99% on R/A; MAP 120 mmHg; tm6 Weight 73.48 kg; Height 6 ft. 2 in. ; Pain 0/10; 13:01 BP 164 / 94; Pulse 80; Resp 17; Pulse Ox 98% ; rs5 14:01 BP 162 / 89; Pulse 74; Resp 17; Pulse Ox 98% on R/A; rs5 12:26 Body Mass Index 20.80 (73.48 kg, 187.96 cm) tm6 12:26 Pain Scale: Adult tm6 ED Course: 12:18 Patient arrived in ED. mr 12:19 Lawrence Rodriguez MD is Attending Physician. rt 12:20 Patient has correct armband on for positive identification. Bed in low position. Call rs5 light in reach. Side rails up X2. 12:20 No provider procedures requiring assistance completed. rs5 12:27 Triage completed. tm6 12:27 Arm band placed on right wrist. tm6 12:47 Zachary Parikh, CHARLES is Primary Nurse. rs5 12:48 Inserted saline lock: 22 gauge in left antecubital area, using aseptic technique. Blood rs5 collected. Flushed with 10 mL NS. 13:39 XRAY Chest (1 view) In Process Unspecified. EDMS 14:15 IV discontinued, intact, bleeding controlled, No redness/swelling at site. Pressure rs5 dressing applied. 14:22 Provided Education on: discharge instructions . rs5 Administered Medications: 12:50 Drug: DuoNeb Nebulize (3:1) (2.5 mg - 0.5 mg) 3 ml Nebulizer once Route: Nebulizer; rs5 13:10 Follow up: Response: No adverse reaction rs5 12:50 Drug: MethylPrednisoLONE IVP 125 mg IVP once Route: IVP; Site: left antecubital; rs5 13:05 Follow up: Response: No adverse reaction rs5 Medication: 13:59 VIS not applicable for this client. rs5 Outcome: 14:04 Discharge ordered by . rt 14:25 Discharged to home ambulatory, rs5 14:25 Condition: stable rs5 14:25 Discharge instructions given to patient, family, Instructed on discharge instructions, follow up and referral plans. medication usage, Demonstrated understanding of instructions, follow-up care, medications, Prescriptions given X 1, 14:30 Patient left the ED. rs5 Signatures: Dispatcher [employer] EDMS Priyanka Ornelas, Reg Reg mr Lawrence Rodriguez MD MD rt Zachary Parikh RN RN rs5 Andrés Avalos RN RN tm6 Corrections: (The following items were deleted from the chart) 15:56 15:40 IV discontinued, intact, bleeding controlled, No redness/swelling at site. rs5 Pressure dressing applied, rs5
[2024-10-09 15:41] VITALS: TEMP 98.4
[2024-10-09 15:47] VITALS: O2SAT 98
[2024-10-09 15:52] VITALS: BP 162/89
--- NOTE | 2024-10-12 10:20 | EKG ---
Test Date: 2024-10-09 Test Time: 13:09:52 Conservation Coordinator: JOSE MIGUEL MEASUREMENT RESULTS: Intervals: Rate: 72 RI: 148 QRSD: 80 QT: 372 QTc: 407 Labelle: P: 80 RI: 148 QRS: 71 T: 67 INTERPRETIVE STATEMENTS: Normal sinus rhythm Normal ECG Compared to ECG 10/22/2023 16:07:25 No significant changes Electronically Signed On 10-12-24 10:18:16 SURFACING TECHNICIAN by Geronimo Ramirez
== END 2024-10-09 14:30 | disposition home or self-care (01) ==
LOC: ER 12:15
DX: J20.9 Acute bronchitis, unspecified (principal); H60.392 Other infective otitis externa, left ear; I10 Essential (primary) hypertension; F17.210 Nicotine dependence, cigarettes, uncomplicated
CPT/HCPCS: 93005; 85025; 80048; 36415; 80076; 84484; 83880; 71045; J7613; J7644; J2919

== ENCOUNTER 2024-12-30 10:01 | Emergency (ER) | payer OTHER ==
[2024-12-30] MEDS ORDERED: LACTULOSE 20 GM/30 ML UCUP ONE (10:29)
--- NOTE | 2024-12-30 11:45 | RAD REPORT ---
EXAM: Abdomen Acute Series HISTORY: Abdominal pain COMPARISON: None FINDINGS: The lungs are clear bilaterally. The cardiomediastinal silhouette is within normal limits. Nonobstructive bowel gas pattern. Moderate to large sigmoid and rectal stool burden. No free air or air-fluid levels are seen on upright examination. No suspicious calcifications are seen. No acute osseous abnormality. Other: n/a IMPRESSION 1. Nonobstructive bowel gas pattern. 2. No acute cardiopulmonary disease. 3. Moderate to large sigmoid and rectal formed stool burden.
--- NOTE | 2024-12-30 12:00 | EDPHYS ---
Physician Documentation [facility] Name: Aj Cosme Jr Age: 69 yrs Sex: Male : 1955 Arrival Date: 12/30/2024 Time: 10:01 Bed 16 Private MD: ED Physician Nba Muhammad HPI: 12/30 10:46 This 69 yrs old Black Male presents to ER via EMS with complaints of Constipation. sp3 10:50 69-year-old male with history of ALS, hypertension, chronic constipation presents to sp3 the ED with recurrent constipation given the patient is taking stool softeners. Patient states he had a bowel movement yesterday consisting of "hard pellets". He presents today to see if there are any other options he can try. He denies any significant abdominal pain. He states he "feels backed up". Review of systems negative for fever, headache, chest pain, shortness of breath, vomiting, rash, bleeding or any other signs or symptoms on ROS at this time.. Historical: - Allergies: 10:10 NKA; me1 - PMHx: 10:10 ALS (Unknown); Hypertension; me1 - PSHx: 10:10 Right hip replacement (en); me1 - Immunization history:: Adult Immunizations up to date. - Infectious Disease History:: Denies. - Social history:: Smoking status: Patient reports the use of cigarette tobacco products, smokes one-half pack cigarettes per day. ROS: 10:51 Constitutional: Negative for fever, chills, and weight loss, Eyes: Negative for injury, sp3 pain, redness, and discharge, Neck: Negative for injury, pain, and swelling, Cardiovascular: Negative for chest pain, palpitations, and edema, Respiratory: Negative for shortness of breath, cough, wheezing, and pleuritic chest pain, Back: Negative for injury and pain, MS/Extremity: Negative for injury and deformity, Skin: Negative for injury, rash, and discoloration, Neuro: Negative for headache, weakness, numbness, tingling, and seizure, Psych: Negative for depression, anxiety, suicide ideation, homicidal ideation, and hallucinations, Allergy/Immunology: Negative for hives, rash, and allergies, Endocrine: Negative for neck swelling, polydipsia, polyuria, polyphagia, and marked weight changes, Hematologic/Lymphatic: Negative for swollen nodes, abnormal bleeding, and unusual bruising, 10:51 All other systems are negative, Exam: 10:51 Constitutional: This is a well developed, well nourished patient who is awake, alert, sp3 and in no acute distress. Head/Face: Normocephalic, atraumatic. Eyes: Pupils equal round and reactive to light, extra-ocular motions intact. Lids and lashes normal. Conjunctiva and sclera are non-icteric and not injected. Cornea within normal limits. Periorbital areas with no swelling, redness, or edema. Neck: Trachea midline, no thyromegaly or masses palpated, and no cervical lymphadenopathy. Supple, full range of motion without nuchal rigidity, or vertebral point tenderness. No Meningismus. Chest/axilla: Normal chest wall appearance and motion. Nontender with no deformity. No lesions are appreciated. Cardiovascular: Regular rate and rhythm with a normal S1 and S2. No gallops, murmurs, or rubs. Normal PMI, no JVD. No pulse deficits. Respiratory: Lungs have equal breath sounds bilaterally, clear to auscultation and percussion. No rales, rhonchi or wheezes noted. No increased work of breathing, no retractions or nasal flaring. Back: No spinal tenderness. No costovertebral tenderness. Full range of motion. Skin: Warm, dry with normal turgor. Normal color with no rashes, no lesions, and no evidence of cellulitis. MS/ Extremity: Pulses equal, no cyanosis. Neurovascular intact. Full, normal range of motion. Neuro: Awake and alert, GCS 15, oriented to person, place, time, and situation. Cranial nerves II-XII grossly intact. Motor strength 5/5 in all extremities. Sensory grossly intact. Cerebellar exam normal. Normal gait. Psych: Awake, alert, with orientation to person, place and time. Behavior, mood, and affect are within normal limits. 10:51 Abdomen/GI: Abdomen soft, not significantly tender and no distention., Vital Signs: 10:05 BP 175 / 89; Pulse 78; Resp 16; Temp 98.5; Pulse Ox 96% ; Weight 69.4 kg; Height 6 ft. me1 2 in. ; Pain 5/10; 11:00 BP 143 / 82; Pulse 68; Resp 15; Pulse Ox 94% ; me1 12:00 BP 143 / 85; Pulse 68; Resp 17; Pulse Ox 96% ; me1 12:30 BP 156 / 96; Pulse 69; Resp 16; Temp 98.1; Pulse Ox 97% ; me1 10:05 Body Mass Index 19.64 (69.40 kg, 187.96 cm) me1 10:05 Pain Scale: Adult me1 MDM: 10:08 Medical Screening Exam initiated sp3 10:52 Data reviewed: vital signs, nurses notes, radiologic studies. ED course: 69-year-old sp3 male with acute on chronic constipation. I do not believe clinically patient has a bowel obstruction or an ileus. Will obtain obstruction series to assess and administer p.o. lactulose to assist as a laxative. Disposition probable discharge.. 11:58 ED course: No obstruction noted. Will discharge and tell patient to take magnesium sp3 citrate.. 12/30 10:27 Order name: Abdomen Acute Series XRAY; Complete Time: 11:51 sp3 Administered Medications: 10:32 Drug: Lactulose PO 20 grams 30 ml PO once Volume: 30 ml; Route: PO; me1 12:33 Follow up: Response: No adverse reaction me1 Disposition Summary: 12/30/24 11:59 Discharge Ordered Notes: Location: Home sp3 Condition: Stable sp3 Diagnosis - Constipation, unspecified sp3 Followup: sp3 - With: Private Physician - When: Upon discharge from the Emergency Department - Reason: Recheck today's complaints, Continuance of care Discharge Instructions: - Discharge Summary Sheet sp3 - Constipation, Adult sp3 Forms: - Medication Reconciliation Form sp3 - Antibiotic Education sp3 - Prescription Opioid Use sp3 - Patient Portal Instructions sp3 - Leadership Thank You Letter sp3 Prescriptions: - Fleet Enema 19-7 gram/118 mL Rectal Enema - insert 118 milliliter RECTAL route daily for 3 days; 3 application; Refills: 0, sp3 Product Selection Permitted - magnesium citrate Oral solution - take 150 milliliter ORAL route once as a single dose; 300 milliliter; Refills: sp3 0, Product Selection Permitted Signatures: Dispatcher [employer] Nba Barrera MD MD sp3 Stacia Cervantes RN RN me1
--- NOTE | 2024-12-30 12:00 | ER ---
Nurse's Notes [facility] Name: Aj Cosme Jr Age: 69 yrs Sex: Male : 1955 Arrival Date: 12/30/2024 Time: 10:01 Bed 16 Private MD: Diagnosis: Constipation, unspecified Presentation: 12/30 10:05 Chief complaint: EMS states: toned out for constipation. Hx of ALS, states he has tried me1 some laxatives but stool is hard and coming out in pieces. Coronavirus screen: Vaccine status: Patient reports receiving the 2nd dose of the covid vaccine. Ebola Screen: No symptoms or risks identified at this time. Initial Sepsis Screen: Does the patient meet any 2 criteria? No. Patient's initial sepsis screen is negative. Does the patient have a suspected source of infection? No. Patient's initial sepsis screen is negative. Risk Assessment: Do you want to hurt yourself or someone else? Patient reports no desire to harm self or others. Onset of symptoms was December 28, 2024. 10:05 Method Of Arrival: EMS: [facility] [place] 10:05 Acuity: JEREMY 3 me1 Triage Assessment: 10:10 General: Appears uncomfortable, slender, well groomed, well developed, Behavior is me1 calm, cooperative, appropriate for age. Pain: Complains of pain in abdomen Pain does not radiate. Pain currently is 5 out of 10 on a pain scale. Quality of pain is described as crampy, Pain began gradually, 2-3 days ago. Is continuous. EENT: No signs and/or symptoms were reported regarding the EENT system. Neuro: Level of Consciousness is awake, alert, obeys commands, Oriented to person, place, time, situation, Appropriate for age. Cardiovascular: Patient's skin is warm and dry. Respiratory: Airway is patent Respiratory effort is even, unlabored, Respiratory pattern is regular, symmetrical. GI: Reports constipation. : No signs and/or symptoms were reported regarding the genitourinary system. Derm: Skin is healthy with good turgor, Skin is pink, warm \T\ dry. Musculoskeletal: Range of motion: limited in all extremities. Historical: - Allergies: 10:10 NKA; me1 - PMHx: 10:10 ALS (Unknown); Hypertension; me1 - PSHx: 10:10 Right hip replacement (en); me1 - Immunization history:: Adult Immunizations up to date. - Infectious Disease History:: Denies. - Social history:: Smoking status: Patient reports the use of cigarette tobacco products, smokes one-half pack cigarettes per day. Screenin:13 [facility] ED Fall Risk Assessment (Adult) History of falling in the last 3 months, me1 including since admission No falls in past 3 months (0 pts) Confusion or Disorientation No (0 pts) Intoxicated or Sedated No (0 pts) Impaired Gait Yes (1 pt) Mobility Assist Device Used Yes (1 pt) Altered Elimination No (0 pt) Score/Fall Risk Level 0 - 2 = Low Risk Maintained a safe environment, Provided non-skid footwear, Hourly rounding (assess needs \T\ fall precautionary measures) done. Abuse screen: Denies threats or abuse. Nutritional screening: No deficits noted. Tuberculosis screening: No symptoms or risk factors identified. Assessment: 10:13 General: See triage assessment. me1 12:34 GI: Bowel sounds present X 4 quads. Abd is soft and non tender X 4 quads. me1 Vital Signs: 10:05 BP 175 / 89; Pulse 78; Resp 16; Temp 98.5; Pulse Ox 96% ; Weight 69.4 kg; Height 6 ft. me1 2 in. ; Pain 5/10; 11:00 BP 143 / 82; Pulse 68; Resp 15; Pulse Ox 94% ; me1 12:00 BP 143 / 85; Pulse 68; Resp 17; Pulse Ox 96% ; me1 12:30 BP 156 / 96; Pulse 69; Resp 16; Temp 98.1; Pulse Ox 97% ; me1 10:05 Body Mass Index 19.64 (69.40 kg, 187.96 cm) me1 10:05 Pain Scale: Adult me1 ED Course: 10:05 Patient arrived in ED. bc6 10:05 Nba Muhammad MD is Attending Physician. sp3 10:05 Stacia Cervantes, CHARLES is Primary Nurse. me1 10:09 Triage completed. me1 10:10 Arm band placed on Patient placed in an exam room. me1 10:13 Patient has correct armband on for positive identification. Bed in low position. Call me1 light in reach. Side rails up X2. Provided Education on: POC. Verbalized understanding.. Client placed on continuous cardiac and pulse oximetry monitoring. NIBP monitoring applied. Pulse ox on. NIBP on. 10:13 No provider procedures requiring assistance completed. me1 11:40 Abdomen Acute Series XRAY In Process Unspecified. EDMS 12:34 Patient did not have IV access during this emergency room visit. me1 Administered Medications: 10:32 Drug: Lactulose PO 20 grams 30 ml PO once Volume: 30 ml; Route: PO; me1 12:33 Follow up: Response: No adverse reaction me1 Medication: 10:13 VIS not applicable for this client. me1 Outcome: 11:59 Discharge ordered by . sp3 12:34 Discharged to home via wheelchair, with family, me1 12:34 Condition: stable 12:34 Discharge instructions given to patient, family, Instructed on discharge instructions, follow up and referral plans. medication usage, Demonstrated understanding of instructions, follow-up care, medications, Prescriptions given X 2, 12:35 Patient left the ED. me1 Signatures: Dispatcher [employer] EDWV Nba Muhammad MD MD sp3 Radha Singh 6 Stacia Cervantes RN RN me1 Corrections: (The following items were deleted from the chart) 10:10 10:05 Chief complaint: EMS states: toned out for constipation. Hx of ELS, states he has me1 tried some laxatives but stool is hard and coming out in pieces. me1
[2024-12-30 14:59] VITALS: BP 156/96; TEMP 98.1; O2SAT 97
== END 2024-12-30 12:35 | disposition home or self-care (01) ==
LOC: ER 10:01
DX: K59.00 Constipation, unspecified (principal); F17.210 Nicotine dependence, cigarettes, uncomplicated
CPT/HCPCS: 74022

== ENCOUNTER 2025-02-10 13:33 | Emergency (ER) | payer OTHER ==
[2025-02-10] MEDS ORDERED: FLEET ENEMA ADULT PR ONE (13:57)
[2025-02-10] MEDS ORDERED: NA CHLORIDE 0.9% 500 ML ONE (13:57)
[2025-02-10 14:08] LABS: Absolute Basophils 0.1 K/uL (0-0.5); Absolute Eosinophils 0.4 K/uL (0-0.5); Absolute Lymphocytes (CBC) 1.8 K/uL (0.7-4.9); Absolute Monocytes 0.5 K/uL (0.1-1.3); Hematocrit 42.6 % (39.6-49.0); Hemoglobin 14.4 g/dL (13.6-17.9); Lymphocytes % 30.6 % (15.3-44.8); MCH 33.2 pg (27.0-35.0); MCHC 33.8 g/dL (32.0-36.0); MCV 98.1 fL (80-100); MPV 7.4 fL (7.6-11.3); Monocytes % 8.4 % (3.3-12.3); Nucleated Red Blood Cells % 0.1 % (0-0); Platelets 298 thou/uL (152-406); RBC Red Blood Cell Count 4.34 M/uL (4.33-5.43); Red Cell Distribution Width 14.1 % (12.1-15.2)
[2025-02-10 14:25] LABS: Albumin 3.4 g/dL (3.4-5.0); Albumin/Globulin Ratio 0.9 (1.1-1.8); Anion Gap 5.5 mEq/L (5.0-15.0); Bilirubin Total 0.5 mg/dL (0.2-1.0); Globulin 3.8 g/dL (2.3-3.5); Potassium 3.5 mEq/L (3.5-5.1); Protein, Total 7.2 g/dL (6.4-8.2)
--- NOTE | 2025-02-10 15:16 | RAD REPORT ---
EXAMINATION: CT ABDOMEN AND PELVIS WITH CONTRAST CLINICAL INDICATION: Abdominal pain. Constipation TECHNIQUE: CT abdomen and pelvis was performed, after the administration of 100 cc Isovue-300.. Sagit dayana and coronal reconstructions were obtained. One or more of the following dose reduction techniques were used: Automated exposure control, adjustment of the mA and kV according to patient si ze, and iterative reconstruction. Unless otherwise specified, incidental findings do not require dedicated imaging follow-up. [id number]. Oral contrast was not given which limits evaluation of bowel and appendix. COMPARISON: .2022 FINDINGS: Liver, spleen, pancreas, adrenals and kidneys appear unremarkable No evidence of diverticulitis. Rectum is distended with stool measuring 9 cm. A large amount of stools present throughout the colon. Left hydrocele. Right hip arthroplasty. Spondylosis lumbar spine results in spinal stenosis : IMPRESSION: Rectum is distended with stool. A large amount of stool present throughout the colon. This has the ap pearance of a fecal impaction.[id number]
--- NOTE | 2025-02-10 17:09 | ER ---
Nurse's Notes [facility] Name: Aj Cosme Jr Age: 69 yrs Sex: Male : 1955 Arrival Date: 02/10/2025 Time: 13:33 Bed 16 Private MD: Diagnosis: Fecal impaction Presentation: 02/10 13:44 Chief complaint: EMS states: they were toned out for constipation x3 days with 9/10 abd kc6 pain. pt denies n/v and reports having taken several OTC meds including enema. Coronavirus screen: At this time, the client does not indicate any symptoms associated with coronavirus-19. Ebola Screen: No symptoms or risks identified at this time. Initial Sepsis Screen: Does the patient meet any 2 criteria? No. Patient's initial sepsis screen is negative. Does the patient have a suspected source of infection? No. Patient's initial sepsis screen is negative. Risk Assessment: Do you want to hurt yourself or someone else? Patient reports no desire to harm self or others. Onset of symptoms was February 10, 2025. 13:44 Method Of Arrival: EMS: [facility] kc6 13:44 Acuity: JEREMY 3 kc6 Triage Assessment: 13:46 General: Appears in no apparent distress. comfortable, slender, well groomed, well kc6 developed, Behavior is calm, cooperative, appropriate for age. Pain: Complains of pain in abdomen Pain currently is 9 out of 10 on a pain scale. GI: Abdomen is round non-distended, Last BM was February 07, 2025. Reports lower abdominal pain, constipation, Patient currently denies diarrhea, nausea, vomiting. : Reports incontinence. Historical: - Allergies: 13:46 NKA; kc6 - PMHx: 13:46 Hypertension; ALS (Unknown); kc6 - PSHx: 13:46 Right hip replacement; kc6 - Immunization history:: Adult Immunizations up to date. - Infectious Disease History:: Denies. - Social history:: Smoking status: Patient reports the use of cigarette tobacco products, smokes one-half pack cigarettes per day. - Family history:: not pertinent. - Hospitalizations: : No recent hospitalization is reported. Screenin:07 [facility] ED Fall Risk Assessment (Adult) History of falling in the last 3 months, kc6 including since admission No falls in past 3 months (0 pts) Confusion or Disorientation No (0 pts) Intoxicated or Sedated No (0 pts) Impaired Gait Yes (1 pt) Mobility Assist Device Used Yes (1 pt) Altered Elimination Yes (1 pt) Score/Fall Risk Level 3 or more points = High Risk Oriented to surroundings, Maintained a safe environment, Educated pt \T\ family on fall prevention, incl call for assistance when getting out of bed. Abuse screen: Denies threats or abuse. Denies injuries from another. Nutritional screening: No deficits noted. Tuberculosis screening: No symptoms or risk factors identified. Assessment: 13:46 General: Appears in no apparent distress. uncomfortable, Behavior is calm, cooperative, bp appropriate for age. 16:15 Reassessment: Patient appears in no apparent distress at this time. Patient is alert, bp oriented x 3, equal unlabored respirations, skin warm/dry/pink. 17:51 Reassessment: EMS TRANSPORT FOR DC PENDING. bp 18:27 Reassessment: EMS AT B/S FOR TRANSPORT. bp Vital Signs: 13:44 BP 167 / 97; Pulse 84; Resp 17 S; Temp 98.8(O); Pulse Ox 100% on R/A; Height 6 ft. 2 kc6 in. (R); Pain 9/10; 16:14 BP 153 / 89; Pulse 88; Resp 16; Pulse Ox 100% ; bp 17:30 BP 161 / 81; Pulse 79; Resp 16; Pulse Ox 100% ; bp 13:44 Pain Scale: Adult kc6 ED Course: 13:41 Patient arrived in ED. rn 13:41 Kyle Chen MD is Attending Physician. rn 13:46 Triage completed. kc6 13:46 Arm band placed on. kc6 14:06 Patient has correct armband on for positive identification. Placed in gown. Bed in low kc6 position. Call light in reach. Side rails up X2. Pulse ox on. NIBP on. Door closed. Noise minimized. Lights dimmed. Warm blanket given. Pillow given. Verbal reassurance given. Repositioned patient. Cleaned of incontinence. Linen changed. 14:07 Patient maintains SpO2 saturation greater than 95% on room air. kc6 14:14 Mary Beth Wilkinson, RN is Primary Nurse. kc6 14:14 Jed Llamas, CHARLES is Primary Nurse. bp 14:19 Radiology exam delayed due to lab results not completed at this time. (BUN/Creatinine) nj IV insertion attempt and/or patient not having appropriate IV at this time. 15:00 CT Abd/Pelvis - IV Contrast Only In Process Unspecified. EDMS 17:30 Provided Education on: NA. bp 17:30 Assisted provider with: DISIMPACTION. bp 17:53 IV discontinued, intact, bleeding controlled, No redness/swelling at site. Pressure bp dressing applied. Administered Medications: 14:00 Drug: NS 0.9% IV 500 ml 500 ml IV at 1 bolus once; to be given as a bolus over 30 kc6 minutes Volume: 500 ml; Route: IV; Rate: 1 bolus; Site: left forearm; 17:54 Follow up: IV Status: Completed infusion bp 16:13 Not Given (Other Intervention Used): fleet [id number] ml LA once; may repeat once bp 16:14 Drug: enema 1 ea LA Per package directions Route: LA; bp 17:53 Follow up: Response: No adverse reaction bp Medication: 17:30 VIS not applicable for this client. bp Outcome: 17:09 Discharge ordered by . rn 17:53 Discharged to home via ambulance, bp 17:53 Condition: stable 17:53 Discharge instructions given to patient, Instructed on discharge instructions, follow up and referral plans. Demonstrated understanding of instructions, follow-up care, 18:28 Patient left the ED. bp Signatures: Dispatcher [employer] EDMS Kyle Chen MD MD rn Jordan, Nathan nj Peltier, Brian, RN RN Mary Beth Wilkinson RN RN kc6
--- NOTE | 2025-02-10 17:09 | EDPHYS ---
Physician Documentation [facility] Name: Aj Cosme Jr Age: 69 yrs Sex: Male : 1955 Arrival Date: 02/10/2025 Time: 13:33 Bed 16 Private MD: ED Physician Kyle Chen HPI: 02/10 17:07 This 69 yrs old Black Male presents to ER via EMS with complaints of Constipation, rn Abdominal Pain. 17:07 Patient reports no bowel movement for 3 days. No fever or chills. No blood in stool. rn Has had bouts of constipation in the past. Reports has taken laxatives and enemas at home without relief.. Historical: - Allergies: 13:46 NKA; kc6 - PMHx: 13:46 Hypertension; ALS (Unknown); kc6 - PSHx: 13:46 Right hip replacement; kc6 - Immunization history:: Adult Immunizations up to date. - Infectious Disease History:: Denies. - Social history:: Smoking status: Patient reports the use of cigarette tobacco products, smokes one-half pack cigarettes per day. - Family history:: not pertinent. - Hospitalizations: : No recent hospitalization is reported. ROS: 17:07 Constitutional: Negative for fever, chills, and weight loss, Cardiovascular: Negative rn for chest pain, palpitations, and edema, Respiratory: Negative for shortness of breath, cough, wheezing, and pleuritic chest pain, Abdomen/GI: Positive for abdominal pain and constipation Exam: 17:07 Constitutional: This is a well developed, well nourished patient who is awake, alert, rn and in no acute distress. Abdomen/GI: Soft, nontender, no rebound or guarding. No peritoneal signs. Vital Signs: 13:44 BP 167 / 97; Pulse 84; Resp 17 S; Temp 98.8(O); Pulse Ox 100% on R/A; Height 6 ft. 2 kc6 in. (R); Pain 9/10; 16:14 BP 153 / 89; Pulse 88; Resp 16; Pulse Ox 100% ; bp 17:30 BP 161 / 81; Pulse 79; Resp 16; Pulse Ox 100% ; bp 13:44 Pain Scale: Adult kc6 Procedures: 17:07 Fecal disimpaction: digital disimpaction was performed, with a moderate amount of stool rn expressed. The patient tolerated the intervention well. MDM: 13:41 Medical Screening Exam initiated rn 17:07 Differential diagnosis: Nonspecific abd pain, Fecal impaction, constipation. Data rn reviewed: vital signs, nurses notes, lab test result(s), radiologic studies, CT scan, and as a result, I will discharge patient. Counseling: I had a detailed discussion with the patient and/or guardian regarding the historical points, exam findings, and any diagnostic results supporting the discharge/admit diagnosis, lab results, radiology results, the need for outpatient follow up, to return to the emergency department if symptoms worsen or persist or if there are any questions or concerns that arise at home. Response to treatment: the patient's symptoms have markedly improved after treatment, and as a result, I will discharge patient. ED course: Was able to remove everything I could reach digitally, had good relief and patient reports sensation of rectal distention has resolved.. 02/10 13:42 Order name: CBC with Diff; Complete Time: 14:26 rn 02/10 13:42 Order name: CMP; Complete Time: 14:26 rn 02/10 13:42 Order name: Lipase; Complete Time: 14:26 rn 02/10 13:42 Order name: CT Abd/Pelvis - IV Contrast Only; Complete Time: 15:21 rn 02/10 13:42 Order name: IV Saline Lock; Complete Time: 14:00 rn 02/10 13:42 Order name: Labs collected and sent; Complete Time: 14:00 rn Administered Medications: 14:00 Drug: NS 0.9% IV 500 ml 500 ml IV at 1 bolus once; to be given as a bolus over 30 kc6 minutes Volume: 500 ml; Route: IV; Rate: 1 bolus; Site: left forearm; 17:54 Follow up: IV Status: Completed infusion bp 16:13 Not Given (Other Intervention Used): fleet ml MA once; may repeat once bp 16:14 Drug: enema 1 ea MA Per package directions Route: MA; bp 17:53 Follow up: Response: No adverse reaction bp Disposition Summary: 02/10/25 17:09 Discharge Ordered Notes: Location: Home rn Problem: new rn Symptoms: have improved rn Condition: Stable rn Diagnosis - Fecal impaction rn Followup: rn - With: Private Physician - When: As needed - Reason: Recheck today's complaints, Re-evaluation by your physician Discharge Instructions: - Discharge Summary Sheet rn - Fecal Impaction rn Forms: - Medication Reconciliation Form rn - Antibiotic field return repairer - Prescription Opioid Use rn - Patient Portal Instructions rn - Leadership Thank You Letter rn Signatures: Dispatcher [employer] Kyle Mrofin MD MD rn Peltier, Brian RN RN Mary Beth Freeman RN RN kc6
[2025-02-10 19:13] VITALS: TEMP 98.8; O2SAT 100
[2025-02-10 19:15] VITALS: BP 161/81
== END 2025-02-10 18:28 | disposition home or self-care (01) ==
LOC: ER 13:33
DX: K56.41 Fecal impaction (principal)
CPT/HCPCS: 96361; 85025; 36415; 83690; 80053; 74177; 96360; 99285; Q9967; J7040

== ENCOUNTER 2025-03-28 11:59 | Emergency (ER) | payer OTHER ==
[2025-03-28] MEDS ORDERED: FLEET ENEMA ADULT PR ONE (13:42)
--- NOTE | 2025-03-28 14:42 | RAD REPORT ---
EXAM: Abdomen Acute Series HISTORY: Abdominal pain COMPARISON: 12/30/2024, 02/10/2025 FINDINGS: The lungs are clear bilaterally. The cardiomediastinal silhouette is within normal limits. Nonobstructive bowel gas pattern. Large formed colonic stool likely reflecting constipation. No free air or air-fluid levels are seen on upright examination. No suspicious calcifications are seen. No acute osseous abnormality. Right hip arthroplasty. Other: n/a IMPRESSION 1. Nonobstructive bowel gas pattern. 2. No acute cardiopulmonary disease. 3. Probable constipation.
--- NOTE | 2025-03-28 15:08 | EDPHYS ---
[facility] Name: Aj Cosme Jr Age: 70 yrs Sex: Male : 1955 Arrival Date: 03/28/2025 Time: 11:59 Bed 15 Private MD: ED Physician Nba Muhammad HPI: 03/28 13:35 This 70 yrs old Black Male presents to ER via EMS with complaints of Constipation, sp3 Dizziness. 13:35 70-year-old male with ALS, hypertension, frequent constipation now presents for sp3 recurrent constipation type symptoms. Last BM was 3 days ago. He denies any significant chest pain, shortness of breath, abdominal pain, vomiting, abdominal distention or any other signs or symptoms on ROS at this time.. Historical: - Allergies: 12:05 NKA; db - PMHx: 12:05 ALS (Unknown); Hypertension; db - PSHx: 12:05 Right hip replacement; db - Immunization history:: Adult Immunizations unknown. - Infectious Disease History:: Denies. - Social history:: Smoking status: Patient denies any tobacco usage or history of. ROS: 13:35 Constitutional: Negative for fever, chills, and weight loss, Eyes: Negative for injury, sp3 pain, redness, and discharge, Neck: Negative for injury, pain, and swelling, Cardiovascular: Negative for chest pain, palpitations, and edema, Respiratory: Negative for shortness of breath, cough, wheezing, and pleuritic chest pain, Back: Negative for injury and pain, MS/Extremity: Negative for injury and deformity, Skin: Negative for injury, rash, and discoloration, Neuro: Negative for headache, weakness, numbness, tingling, and seizure, Psych: Negative for depression, anxiety, suicide ideation, homicidal ideation, and hallucinations, Allergy/Immunology: Negative for hives, rash, and allergies, Endocrine: Negative for neck swelling, polydipsia, polyuria, polyphagia, and marked weight changes, Hematologic/Lymphatic: Negative for swollen nodes, abnormal bleeding, and unusual bruising, 13:35 All other systems are negative, Exam: 13:36 Constitutional: This is a well developed, well nourished patient who is awake, alert, sp3 and in no acute distress. Head/Face: Normocephalic, atraumatic. Eyes: Pupils equal round and reactive to light, extra-ocular motions intact. Lids and lashes normal. Conjunctiva and sclera are non-icteric and not injected. Cornea within normal limits. Periorbital areas with no swelling, redness, or edema. ENT: Nares patent. No nasal discharge, no septal abnormalities noted. External auditory canals are clear. Oropharynx with no redness, swelling, or masses, exudates, or evidence of obstruction, uvula midline. Mucous membranes moist. Neck: Trachea midline, no thyromegaly or masses palpated, and no cervical lymphadenopathy. Supple, full range of motion without nuchal rigidity, or vertebral point tenderness. No Meningismus. Chest/axilla: Normal chest wall appearance and motion. Nontender with no deformity. No lesions are appreciated. Cardiovascular: Regular rate and rhythm with a normal S1 and S2. No gallops, murmurs, or rubs. Normal PMI, no JVD. No pulse deficits. Respiratory: Lungs have equal breath sounds bilaterally, clear to auscultation and percussion. No rales, rhonchi or wheezes noted. No increased work of breathing, no retractions or nasal flaring. Back: No spinal tenderness. No costovertebral tenderness. Full range of motion. Skin: Warm, dry with normal turgor. Normal color with no rashes, no lesions, and no evidence of cellulitis. MS/ Extremity: Pulses equal, no cyanosis. Neurovascular intact. Full, normal range of motion. Neuro: Awake and alert, GCS 15, oriented to person, place, time, and situation. Cranial nerves II-XII grossly intact. Motor strength 5/5 in all extremities. Sensory grossly intact. Cerebellar exam normal. Normal gait. 13:36 Abdomen/GI: Abdomen soft, nondistended and no peritoneal signs., Vital Signs: 11:53 BP 125 / 86; Pulse 78; Resp 18; Temp 99; Pulse Ox 94% on R/A; Weight 66.22 kg; Height 6 db ft. 2 in. ; Pain 8/10; 13:00 BP 130 / 76; Pulse 66; Resp 16; Pulse Ox 95% ; db 14:00 BP 120 / 79; Pulse 74; Resp 18; Pulse Ox 95% ; db 11:53 Body Mass Index 18.75 (66.22 kg, 187.96 cm) db 11:53 Pain Scale: Adult db MDM: 13:04 Medical Screening Exam initiated sp3 13:36 Data reviewed: vital signs, nurses notes, radiologic studies. ED course: Differential sp3 diagnosis includes constipation, ileus, bowel obstruction. Clinically I am not highly suspicious for the latter two. Vital signs remain normal. Will try Fleet enema and obtain obstruction series.. 15:07 ED course: Patient was able to have a bowel movement. X-ray demonstrates no obstructive sp3 pattern. Will discharge patient home at this time.. 03/28 13:12 Order name: Abdomen Acute Series XRAY; Complete Time: 14:44 sp3 Administered Medications: 14:15 Drug: Fleet Enema ND 133 ml ND once; may repeat once Route: ND; db 15:42 Follow up: Response: No adverse reaction db Disposition Summary: 03/28/25 15:07 Discharge Ordered Notes: Location: Home sp3 Condition: Stable sp3 Diagnosis - Constipation, abdominal pain sp3 Followup: sp3 - With: Private Physician - When: Upon discharge from the Emergency Department - Reason: Continuance of care Discharge Instructions: - Discharge Summary Sheet sp3 - Constipation, Adult sp3 Forms: - Medication Reconciliation Form sp3 - Antibiotic Education sp3 - Prescription Opioid Use sp3 - Patient Portal Instructions sp3 - Leadership Thank You Letter sp3 Signatures: Dispatcher [employer] EDMS Nba Muhammad MD MD sp3 Ignacia Mckenna RN RN db
--- NOTE | 2025-03-28 15:08 | ER ---
Nurse's Notes [facility] Name: Aj Cosme Jr Age: 70 yrs Sex: Male : 1955 Arrival Date: 03/28/2025 Time: 11:59 Bed 15 Private MD: Diagnosis: Constipation, abdominal pain Presentation: 03/28 11:53 Chief complaint: EMS states: CONSTIPATION X 1 WEEK, DIZZINESS STARTED THIS AM. db Coronavirus screen: Client denies travel out of the [place] in the last 14 days. At this time, the client does not indicate any symptoms associated with coronavirus-19. Ebola Screen: Patient negative for fever greater than or equal to 101.5 degrees Fahrenheit, and additional compatible Ebola Virus Disease symptoms Patient denies exposure to infectious person. Patient denies travel to an Ebola-affected area in the 21 days before illness onset. No symptoms or risks identified at this time. Initial Sepsis Screen: Does the patient meet any 2 criteria? No. Patient's initial sepsis screen is negative. Does the patient have a suspected source of infection? No. Patient's initial sepsis screen is negative. Risk Assessment: Do you want to hurt yourself or someone else? Patient reports no desire to harm self or others. Onset of symptoms was March 28, 2025. 11:53 Method Of Arrival: EMS: [facility] db 11:53 Acuity: JEREMY 3 db Triage Assessment: 12:05 General: Appears in no apparent distress. comfortable, Behavior is calm, cooperative. db Pain: Complains of pain in right lower quadrant and left lower quadrant. Neuro: Level of Consciousness is awake, alert, obeys commands, Oriented to person, place, time, situation. Neuro: Reports dizziness. Respiratory: Airway is patent Respiratory effort is even, unlabored, Respiratory pattern is regular, symmetrical. GI: Abdomen is flat, non-distended, Reports constipation. Historical: - Allergies: 12:05 NKA; db - PMHx: 12:05 ALS (Unknown); Hypertension; db - PSHx: 12:05 Right hip replacement; db - Immunization history:: Adult Immunizations unknown. - Infectious Disease History:: Denies. - Social history:: Smoking status: Patient denies any tobacco usage or history of. Screenin:22 [facility] ED Fall Risk Assessment (Adult) History of falling in the last 3 months, db including since admission No falls in past 3 months (0 pts) Confusion or Disorientation No (0 pts) Intoxicated or Sedated No (0 pts) Impaired Gait Yes (1 pt) Mobility Assist Device Used No (0 pt) Altered Elimination No (0 pt) Score/Fall Risk Level 0 - 2 = Low Risk Oriented to surroundings, Maintained a safe environment. Abuse screen: Denies threats or abuse. Denies injuries from another. Nutritional screening: No deficits noted. Tuberculosis screening: No symptoms or risk factors identified. Assessment: 13:00 Reassessment: Patient appears in no apparent distress at this time. Patient and/or db family updated on plan of care and expected duration. Pain level reassessed. Patient is alert, oriented x 3, equal unlabored respirations, skin warm/dry/pink. General: Appears in no apparent distress. comfortable, Behavior is calm, cooperative. Neuro: Level of Consciousness is awake, alert, obeys commands, Oriented to person, place, time, situation. Respiratory: Airway is patent Respiratory effort is even, unlabored, Respiratory pattern is regular, symmetrical. 14:10 Reassessment: Patient appears in no apparent distress at this time. Patient and/or db family updated on plan of care and expected duration. Pain level reassessed. Patient is alert, oriented x 3, equal unlabored respirations, skin warm/dry/pink. RADIOLOGY AT PATIENT BEDSIDE FOR XRAY. 14:15 Reassessment: FLEETS ENEMA GIVEN TO PT. PT PLACED ON LEFT SIDE. db 15:15 Reassessment: PT BRIEF CLEANED. PT WITH SOFT BROWN STOOL. db 15:29 Reassessment: DC PENDING PATIENT RIDE. db 15:35 Reassessment: CALLED CONTACT FOR AND LEFT VOICEMAIL TO NOTIFY PT IS BEING db DISCHARGE HOME. 15:39 Reassessment: Patient appears in no apparent distress at this time. Patient and/or db family updated on plan of care and expected duration. Pain level reassessed. Patient is alert, oriented x 3, equal unlabored respirations, skin warm/dry/pink. 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 15:42 Reassessment: EMS GOT A HOLD OF PATIENT . NOTIFIED PT IS ON THE WAY. db Vital Signs: 11:53 BP 125 / 86; Pulse 78; Resp 18; Temp 99; Pulse Ox 94% on R/A; Weight 66.22 kg; Height 6 db ft. 2 in. ; Pain 8/10; 13:00 BP 130 / 76; Pulse 66; Resp 16; Pulse Ox 95% ; db 14:00 BP 120 / 79; Pulse 74; Resp 18; Pulse Ox 95% ; db 11:53 Body Mass Index 18.75 (66.22 kg, 187.96 cm) db 11:53 Pain Scale: Adult db ED Course: 12:03 Patient arrived in ED. db 12:05 Triage completed. db 12:05 Arm band placed on Patient placed in an exam room. db 12:23 Nba Muhammad MD is Attending Physician. sp3 13:23 Ignacia Mckenna, RN is Primary Nurse. db 14:31 Patient has correct armband on for positive identification. Bed in low position. Call db light in reach. Side rails up X 1. Warm blanket given. Pillow given. 14:35 Abdomen Acute Series XRAY In Process Unspecified. EDMS 15:38 No provider procedures requiring assistance completed. Patient did not have IV access db during this emergency room visit. 15:39 Provided Education on: DISCHARGE AND FOLLOWUP. db Administered Medications: 14:15 Drug: Fleet Enema [place] 133 ml [place] once; may repeat once Route: [place]; db 15:42 Follow up: Response: No adverse reaction db Medication: 14:30 VIS not applicable for this client. db Outcome: 15:07 Discharge ordered by . sp3 15:39 Discharged to home via ambulance, db 15:39 Condition: stable 15:39 Discharge instructions given to patient, Instructed on discharge instructions, follow up and referral plans. 15:48 Patient left the ED. db Signatures: Dispatcher [employer] EDMS Nba Muhammad MD MD sp3 Ignacia Mckenna, RN RN db
[2025-03-28 16:17] VITALS: O2SAT 95
[2025-03-28 16:18] VITALS: BP 120/79
== END 2025-03-28 15:48 | disposition home or self-care (01) ==
LOC: ER 11:59
DX: K59.00 Constipation, unspecified (principal); Z96.641 Presence of right artificial hip joint
CPT/HCPCS: 74022; 99283